=== PATIENT | male | born 1950 | race Caucasian/White ===

== ENCOUNTER 2025-08-28 11:19 | Emergency (ER) | payer MEDICARE, OTHER, SELFPAY ==
[2025-08-28] VITALS (7 sets, daily range): BP systolic 122–139; BP diastolic 58–99; PULSE 41–130; RESP 12–22; TEMP 36.7; O2SAT 90–99
--- NOTE | ~2025-08-28 | XR_ITS ---
Examination: XR chest 1V portable Clinical History: syncope Comparison: None Technique: Portable AP Findings: Heart size normal. Right basilar airspace disease. No acute bony abnormality. IMPRESSION: 1. Right basilar pneumonia. Reviewed, dictated and finalized at location R. INE PILOT IMPRESSION: 1. Right basilar pneumonia.
--- NOTE | ~2025-08-28 | CT_ITS ---
CT HEAD NON-CONTRAST CT C-SPINE CT FACE Clinical History: Trauma Comparison: None Technique: Unenhanced axial images skull base to vertex. Coronal, sagittal reformats. Axial images thoracic inlet to skull base. Sagittal and coronal reformats. CT images acquired with automatic exposure control for dose reduction DLP: 757 mGy-cm Findings: Head: Mild age-related atrophy Encephalomalacia right frontal lobe posteriorly. Sulci, ventricles: Unremarkable. No intracerebral hemorrhage. No evidence acute territorial infarct. No mass effect, midline shift, intra-/extra-axial fluid collection. Bony calvarium intact. Visualized paranasal sinuses: Clear. Mastoid air cells: Clear. C-spine: No acute fracture or listhesis. Vertebral bodies normal height and alignment. Mild degenerative changes. Disc spaces maintained. Prevertebral soft tissues within normal limits. Visualized lung apices: Clear. Visualized thyroid: Unremarkable. No enlarged cervical nodes. Face: Angulated nasal fractures. IMPRESSION: HEAD: 1. No acute intracranial findings. C-SPINE: 1. No acute fracture. FACE: 1. Nasal fractures. Reviewed, dictated and finalized at location R. MACHINE OPERATOR HELPER IMPRESSION: HEAD: 1. No acute intracranial findings. C-SPINE: 1. No acute fracture. FACE: 1. Nasal fractures.
--- NOTE | 2025-08-28 11:23 | PC.NURSE ---
1 of Atropine given IVP per EDP Dr Estrada at bedside.
[2025-08-28] MEDS: ATROPINE SULFATE 1 MG/10 ML SYRINGE (11:27)
--- NOTE | 2025-08-28 11:30 | ECG_ITS ---
Test Date: 2025-08-28 11:19:55 Measurements Intervals [place] Rate: 40 P: -21 AK: 180 QRS: -26 QRSD: 182 T: 85 QT: 617 QTc: 504 Interpretive Statements SINUS arrest with escape rhythm rbbb Electronically Signed On 08-28-2025 14:22:32 AEROSPACE ENGINEER OFFICER [employer] by Shefali Pinto M.D.
--- NOTE | 2025-08-28 11:30 | ECG_ITS ---
Test Date: 2025-08-28 11:30:39 Measurements Intervals [place] Rate: 123 P: 0 AK: 0 QRS: 117 QRSD: 183 T: 30 QT: 397 QTc: 568 Interpretive Statements ATRIAL FLUTTER/TACHYCARDIA WITH RAPID VENTRICULAR RESPONSE RIGHT AXIS DEVIATION [QRS AXIS > 100] RIGHT BUNDLE BRANCH BLOCK [120+ ms QRS DURATION, UPRIGHT V1, 40+ ms S IN I/aVL/V4/V5/V6] Electronically Signed On 08-28-2025 14:22:47 SANITATION SUPERVISOR by Shefali Pinto M.D.
--- NOTE | 2025-08-28 11:36 | ED_ITS ---
HPI - General Adult General Chief complaint: Syncope Stated complaint: syncope, arrhythmia Time Seen by Provider: 08/28/25 11:34 History of Present Illness HPI narrative: 75-year-old male present to the emergency department after her having multiple syncopal episodes at a local grocery store. Patient does have a recent history of a transcatheter aortic valve replacement at [facility] 08/02. Patient is scheduled to have a pacemaker placed by Dr. Le at [facility] on September 16. Patient had been feeling fine prior to going shopping but did have multiple syncopal episodes. Patient did fall and strike his head. Patient was having significant sinus pauses for which he was symptomatic upon arrival emergency department. Patient did have a sinus pause/asystole for at least 4 seconds. Patient was treated with atropine and this did increase his heart rate to the 130s and does appear to have a AFib/a flutter appearance. Patient states he does have a history of AFib a flutter. Patient does take amiodarone. Patient is on Lasix and Eliquis. Related Data Allergies Allergy/AdvReac Type Severity Reaction Status Date / Time No Known Allergies Allergy Verified 08/28/25 11:32 Review of Systems 2 Review of Systems: All systems reviewed & are unremarkable except as noted in HPI and below Exam 2 Narrative: APPEARANCE: Well appearing, no pain, no distress, well-nourished. HEAD: normocephalic, atraumatic. EYES: PERRLA/EOMI, conjunctivae clear. NOSE: Normal no drainage EARS:TMS clear with good light reflex. THROAT: Pharynx clear, no exudate. NECK: Supple. No adenopathy, no masses. RESPIRATORY: Airway patent, respirations nonlabored. Clear to auscultation bilaterally, no rales, rhonchi, wheezing. CARDIOVASCULAR: AFib ABDOMINAL: Soft, nontender, nondistended, normal bowel sounds MUSCULOSKELETAL: Moves all extremities. Strength/ROM intact, No edema, No calf tenderness. NEURO: Alert. Cranial nerves II through XII intact. Grossly intact SKIN: Warm, dry. Normal Color Course Vital Signs Vital signs: Vital Signs Temperature 98.0 F 08/28/25 11:17 Pulse Rate 41 L 08/28/25 11:17 Respiratory Rate 16 08/28/25 11:17 Blood Pressure 139/80 08/28/25 11:17 Pulse Oximetry 94 08/28/25 11:17 Oxygen Delivery Room Air 08/28/25 11:17 Temperature 98.0 F 08/28/25 11:17 Pulse Rate 64 08/28/25 12:37 Respiratory Rate 12 08/28/25 12:37 Blood Pressure 129/63 08/28/25 12:37 Pulse Oximetry 97 08/28/25 12:37 Oxygen Delivery Nasal Cannula 08/28/25 11:34 Oxygen Flow Rate 2 08/28/25 11:34 Medical Decision Making MDM Narrative Medical decision making narrative: 75-year-old male present to the emergency department for evaluation for syncopal episodes and heart blocks. Patient was treated with atropine and had a of his heart rate. Patient's heart rate increased to approximately 130s and appears to be an a fib/a flutter rhythm. On re-evaluation patient states he does feel improved. Patient denies any associated chest pain. Patient does have a laceration to his nose secondary to the fall. Patient does take Eliquis. I discussed the case with our tug boat captain he felt that the patient should be transferred to the outside hospital. Patient continues to be evaluated for stability. I discussed the case with transfer services at [facility] and they do have an ICU bed available. Patient was accepted by the real estate executive assistant and hospitalist Patient received atropine at 11:[address] was negative for acute intracranial abnormality. Patient was updated on the plan for transfer. Patient was transferred by flight. Patient was well-appearing at time of discharge. Critical Care Procedure Note Authorized and Performed by: Landry Estrada Total critical care time: Approximately 36 minutes Due to a high probability of clinically significant, life threatening deterioration, the patient required my highest level of preparedness to intervene emergently and I personally spent this critical care time directly and personally managing the patient. This critical care time included obtaining a history; examining the patient; pulse oximetry; ordering and review of studies; arranging urgent treatment with development of a management plan; evaluation of patient's response to treatment; frequent reassessment; and, discussions with other providers. This critical care time was performed to assess and manage the high probability of imminent, life-threatening deterioration that could result in multi-organ failure. It was exclusive of separately billable procedures and treating other patients and teaching time. Please see MDM section and the rest of the note for further information on patient assessment and treatment. Differential Diagnosis Differential Diagnosis: Sinus bradycardia, heart block, sick sinus, VFib Vital Signs Vital Signs: Vital Signs Temperature 98.0 F 08/28/25 11:17 Pulse Rate 41 L 08/28/25 11:17 Respiratory Rate 16 08/28/25 11:17 Blood Pressure 139/80 08/28/25 11:17 Pulse Oximetry 94 08/28/25 11:17 Oxygen Delivery Room Air 08/28/25 11:17 Temperature 98.0 F 08/28/25 11:17 Pulse Rate 64 08/28/25 12:37 Respiratory Rate 12 08/28/25 12:37 Blood Pressure 129/63 08/28/25 12:37 Pulse Oximetry 97 08/28/25 12:37 Oxygen Delivery Nasal Cannula 08/28/25 11:34 Oxygen Flow Rate 2 08/28/25 11:34 Lab Data Lab results reviewed: Yes I reviewed the patient's lab results. 08/28/25 11:32 08/28/25 11:32 Labs: Lab Results 08/28/25 Range/Units 11:32 WBC 6.3 (4.5-10.0) K/mm3 RBC 2.91 L (4.6-6.20) M/mm3 Hgb 9.5 L (14.0-18.0) g/dL Hct 29.9 L (42.0-52.0) % MCV 102.7 H (80-100) fl MCH 32.6 (26-34) pg MCHC 31.8 L (32-36) g/dl RDW 17.1 H (11.5-14.5) % Plt Count 363 (150-375) k/mm3 MPV 10.2 (7.4-10.4) fl Immature Gran % (Auto) 0.8 H (0-0.5) % Neut % (Auto) 34.5 L (45.5-73.1) % Lymph % (Auto) 47.9 H (18.3-44.2) % Burnett % (Auto) 9.7 H (2.6-8.5) % Eos % (Auto) 4.6 H (0-4.4) % Baso % (Auto) 2.5 H (0.2-1.2) % Lymph # (Auto) 3.02 (0.9-3.2) K/mm3 Burnett # (Auto) 0.6 (0.1-0.6) K/mm3 Eos # (Auto) 0.3 (0-0.3) K/mm3 Baso # (Auto) 0.2 H (0.0-0.1) K/mm3 Abs Immat Gran (auto) 0.05 H (0.00-0.031) K/mm3 Absolute Neuts (auto) 2.2 (1.3-6.7) K/mm3 Absolute Nucleated RBC 0.000 (0.0-0.012) K/mm3 Nucleated RBC % 0.0 (0.0-0.2) % PT 16.7 H (11.1-14.7) Seconds INR 1.3 APTT 31.0 (22.3-36.8) Seconds Sodium 139 (137-145) mmol/L Potassium 4.6 (3.4-5.0) mmol/L Chloride 101 (98-107) mmol/L Carbon Dioxide 24 (22-30) mmol/L Anion Gap 14 H (4-12) mmol/L BUN 62 H (9-20) mg/dL Creatinine 3.47 H (0.7-1.3) mg/dL Estim Creat Clear Calc 18 ml/min Estimated GFR 17 L (59 - ) Glucose 174 H (65-110) mg/dL Lactic Acid 2.0 (0.7-2.0) mmol/L Calcium 9.2 (8.4-10.2) mg/dL Total Bilirubin 0.5 (0.2-1.3) mg/dL AST 25 (17-59) U/L ALT 17 (6-50) U/L Alkaline Phosphatase 48 (38-126) U/L NT-Pro-B Natriuret Pep 4750 H (19.9-100) pg/mL Total Protein 7.4 (6.3-8.2) g/dL Albumin 4.2 (3.5-5.1) g/dL Imaging Data Radiologist's impression: Impressions Chest X-Ray 08/28/25 12:10 IMPRESSION: 1. Right basilar pneumonia. Head CT 08/28/25 12:12 IMPRESSION: HEAD: 1. No acute intracranial findings. C-SPINE: 1. No acute fracture. FACE: 1. Nasal fractures. Head/Cervical Spine/Facial Bones CT 08/28/25 12:12 IMPRESSION: HEAD: 1. No acute intracranial findings. C-SPINE: 1. No acute fracture. FACE: 1. Nasal fractures. Critical Care Time Critical Care Time Critical Care Time: Yes Total Critical Care Time: 36 Discharge Plan Discharge Clinical Impression: Sinus pause, Bradycardia Patient Disposition: Acute Care Hospital Condition: Serious Patient Language: Nepali Follow-up/Referrals: Layo,Amadou [Other]
[2025-08-28 11:37] LABS: Hematocrit 29.9 % (42.0-52.0); Hemoglobin 9.5 g/dL (14.0-18.0); Immature Granulocyte Percent A 0.8 % (0-0.5); Lymphocytes Absolute Auto 3.02 K/mm3 (0.9-3.2); Mean Corpuscular HGB Conc 31.8 g/dl (32-36); Mean Corpuscular Hemoglobin 32.6 pg (26-34); Mean Corpuscular Volume 102.7 fl (80-100); Nucleated Red Blood Cells Absolute Auto 0.000 K/mm3 (0.0-0.012); Nucleated Red Blood Cells Perc 0.0 % (0.0-0.2); Platelet Count Result 363 k/mm3 (150-375); Red Blood Count 2.91 M/mm3 (4.6-6.20); White Blood Count 6.3 K/mm3 (4.5-10.0)
[2025-08-28 11:48] LABS: INR 1.3; Prothrombin Time 16.7 Seconds (11.1-14.7)
[2025-08-28 11:49] LABS: Partial Thromboplastin Time 31.0 Seconds (22.3-36.8)
[2025-08-28 11:58] LABS: Alanine Aminotransferase 17 U/L (6-50); Albumin Level 4.2 g/dL (3.5-5.1); Alkaline Phosphatase 48 U/L (38-126); Anion Gap 14 mmol/L (4-12); Aspartate Amino Transferase 25 U/L (17-59); Bilirubin,Total 0.5 mg/dL (0.2-1.3); Blood Urea Nitrogen 62 mg/dL (9-20); Calcium 9.2 mg/dL (8.4-10.2); Carbon Dioxide 24 mmol/L (22-30); Chloride 101 mmol/L (98-107); Estimated CRCL calculation 18 ml/min; Estimated Glomerular Filt Rate 17; Glucose 174 mg/dL (65-110); Potassium 4.6 mmol/L (3.4-5.0); Sodium 139 mmol/L (137-145); Total Protein 7.4 g/dL (6.3-8.2)
[2025-08-28 12:01] LABS: NT Pro B Type Natriuretic Pept 4750 pg/mL (19.9-100)
--- OUTSIDE RECORDS SUMMARY | 2025-08-28 12:36 | XMS_ITS | Encounter Summary ---
Author Organization [facility] Address [address] [place] [address] Care Team Providers Care [employer] Assistant Name Role Phone Aryan Le MD Unavailable Tyler Nunes MD Unavailable [phone] Catarino Bella MD Unavailable [phone] Richard Post MD Unavailable [phone] Alli Melendrez MD Unavailable [phone] Tanesha Ingram Unavailable [phone] Tanesha Ingram Unavailable [phone] Bessie Estrada RN Unavailable [phone] Amadou Vasques MD Primary Care Provider [phone] Alli Cardenas DO Unavailable Encounter Details Date Type Department Care Team (Late st Contact Info) Description 10/30/2023 [employer] Message Enc [facility] Family & Internal Medicine [phone] [place] [address] Jose Antonio [facility] Provider Due for routine follow up appt Social History Tobacco Use Types Packs/Day Years Used Date Smoking Tobacco: Former Cigarettes 2 35 1 0 - 2004 Smokeless Tobacco: Never Alcohol Use Standard Drinks/Week Comments Yes 0 (1 standard drink = 0.6 oz pur e alcohol) AUDIT-C Answer Date Recorded Q1: How often do you have a drink containing alc ohol? Monthly or less 05/18/2020 Q2: How many drinks containi ng alcohol do you have on a typical day when you are drinking? 1 or 2 05/18/2020 Q3: How often do you have si x or more drinks on one occasion? Never 05/18/2020 PHQ-2 Answer Date Recorded Patient Health Questionnaire-2 Score 0 02/18/2023 Sex and Gender Information Value Date Recorded Sex Assigned at Male 05/13/2025 11:00 AM CDT Legal Sex Male 11:09 PM CDT Gender Identity Male 05/13/2025 11:00 AM CDT Sexual Orientation Not on file Occupation Industry Job Start Date Job End Date Not on file Not on file Not on file Not on file documented as of this encounter Plan of Treatment Upcoming Encounters Date Type Department Care Team (Late st Contact Info) Description 09/05/2025 8:00 AM BATCH PLANT OPERATOR Office Visit [facility] Family & Internal Medicine [address] [phone] Amadou Vasques MD [address] [place] [phone] 09/15/2025 1:30 PM BATCH PLANT OPERATOR Appointment [facility] [place] [address] Tanesha Ingram PA [address] [address] 09/15/2025 2:30 PM BATCH PLANT OPERATOR Office Visit [facility], [place] [address] [place] [address] Tanesha Ingram PA 3 [facility], [address] [address] 09/16/2025 1:00 PM BATCH PLANT OPERATOR Appointment [facility] [place] [address] Aryan Le MD Three [facility]. [place] [place] [address] 09/16/2025 1:30 PM BATCH PLANT OPERATOR Appointment [facility] Climate Change Analyst [facility] [place] [address] Aryan Le MD Three [facility]. [place] [place] [address] 10/17/2025 1:00 PM BATCH PLANT OPERATOR Office Visit [facility] [address], [place] [place] [address] Sarah Camacho MD 3 [facility], [address] [place] [address] 11/16/2025 12:20 PM BATCH PLANT OPERATOR Office Visit [facility] [address] [phone] Sarah Camacho MD 3 [facility], [address] [place] [address] 02/14/2026 9:00 AM CDT Appointment [facility] [place] [address] Jesus Aragon MD Three [facility]. [address] [place] [address] 02/24/2026 9:30 AM CDT Office Visit [facility], [place] [place] [address] Jesus Aragon MD Three [facility]. [address] [place], [place] [address] documented as of this encounter Visit Diagnoses Not on filedocumented in this encounter Additional Health Concerns Infection Onset Date Last Indicated Resolved Time Respiratory Rule Out 07/05/2025 07/05/2025 025 12:45 PM CDT COVID-19 Rule Out 07/05/2025 07/05/2025 07/05/2025 12:45 PM CDT Assessment Noted Time PHQ-9 Depression Total Score: 0 03/15/20 21 12:40 PM CDT documented as of this encounter Care Teams [employer] Assistant Relationship Specialty [place] [address] [place] [address] PCP - General FAMILY PRACTICE 07/29/25 Aryan Le MD Three [facility]. [address] [place], [place] [address] [place] [employer] Seamstress CARDIOVASCULAR DISEASE 04/06/18 Tyler Nunes MD Three [facility]. [address] [place], [place] [address] Consulting Physician INTERVENTIONAL CARDIOLOGY 06/09/25 Catarino Bella MD 3 [facility] [place] [address] [place], [place] [id number] Consulting Physician INTERVENTIONAL CARDIOLOGY 06/09/25 Richard Post MD 3 [facility] [address] [place], [place] [address] Physician CARDIOTHORACIC SURGERY 06/09/25 Alli Melendrez MD Three [facility]. [address] [place], [place] [id number] Consulting Physician CARDIOTHORACIC SURGERY 06/09/25 Tanesha Ingram PA 3 [facility], [address] [place], [place] [address] Rehabilitation Director PHYSICIAN LIME MIXER TENDER 06/09/25 06/12/25 Tanesha Ingram PA 3 [facility], [address] [place], [place] [address] Physician Epic Beacon Analyst PHYSICIAN LIME MIXER TENDER 06/12/25 Bessie Estrada, RN [address] [place] [address] Aquatic Centre Manager (Ambulatory) REGISTERED NURSE 07/06/25 08/23/25 Alli Cardenas DO [facility] [place] [address] [place] [address] INTERNAL MEDICINE 07/29/25 documented as of this encounter
--- OUTSIDE RECORDS SUMMARY | 2025-08-28 12:36 | XMS_ITS | Encounter Summary ---
Author Organization [facility] Address [address] [place] [id number] Care Team Providers Care Concrete Craftsman Name Role Phone Aryan Le MD Unavailable Tyler Nunes MD Unavailable [phone] Catarino Bella MD Unavailable [phone] Richard Post MD Unavailable [phone] Alli Melendrez MD Unavailable [phone] Tanesha Ingram Unavailable [phone] Bessie Estrada RN Unavailable [phone] Amadou Vasques MD Primary Care Provider [phone] Alli Cardenas DO Unavailable Encounter Details Date Type Department Care Team (Latest Contact Info) Description 08/15/2025 Scan HEALTH INFO SRVCS Scanned, Doc Med Group Social History Tobacco Use Types Packs/Day Years Used Date Smoking Tobacco: Former Cigarettes 2 35 1 970 - 2005 Smokeless Tobacco: Never Alcohol Use Standard Drinks/Week Comments Not Currently 0 (1 standard drink = 0.6 oz pur e alcohol) [facility] Utilities Answer Date Recorded In the past 12 months has e electric, gas, oil, or water [employer] threatened to shut off services in your home? No 07/05/2025 Humiliation, Afraid, Rape, and Kick questionnair e Answer Date Recorded Within the last year, have y ou been afraid of your partner or ex-partner? No 07/05/2025 Within the last year, have y ou been humiliated or emotionally abused in other ways by your partner or ex-partner? No Within the last year, have y ou been kicked, hit, slapped, or otherwise physically hurt by your partner or ex-partner? No 07/05/2025 Within the last year, have y ou been raped or forced to have any kind of sexual activity by your partner or ex-partner? No 07/05/2025 AUDIT-C Answer Date Recorded Q1: How often do you have a drink containing alc ohol? Monthly or less 05/18/2020 Q2: How many drinks containi ng alcohol do you have on a typical day when you are drinking? 1 or 2 05/18/2020 Q3: How often do you have si x or more drinks on one occasion? Never 05/18/2020 Overall Financial Resource Strain (CARDIA) Answe r Date Recorded How hard is it for you to pa y for the very basics like food, housing, medical care, and heating? Not hard at all 07/05/2025 PHQ-2 Answer Date Recorded Patient Health Questionnaire-2 Score 0 08/15/2025 Hunger Vital Sign Answer Date Recorded Within the past 12 months, y ou worried that your food would run out before you got the money to buy more. Never true 07/05/20 25 Within the past 12 months, t he food you bought just didn't last and you didn't have money to get more. Never true 07/05/2025 PRAPARE - Transportation Answer Date Re corded In the past 12 months, has l ack of transportation kept you from medical appointments or from getting medications? No 06/08 In the past 12 months, has l ack of transportation kept you from meetings, work, or from getting things needed for daily living? No 07/05/2025 Housing Stability Vital Sign Answer Hola e Recorded In the last 12 months, was t here a time when you were not able to pay the mortgage or rent on time? No 07/05/2025 In the past 12 months, how m any times have you moved where you were living? 0 07/05/2025 At any time in the past 12 m [facility], were you homeless or living in a nursing home (including now)? No 07/05/2025 Humiliation, Afraid, Rape, and Kick questionnair e Answer Date Recorded Within the last year, have y ou been afraid of your partner or ex-partner? No 08/02/2025 Within the last year, have y ou been humiliated or emotionally abused in other ways by your partner or ex-partner? No Within the last year, have y ou been kicked, hit, slapped, or otherwise physically hurt by your partner or ex-partner? No 08/02/2025 Within the last year, have y ou been raped or forced to have any kind of sexual activity by your partner or ex-partner? No 08/02/2025 Overall Financial Resource Strain (CARDIA) Answe r Date Recorded How hard is it for you to pa y for the very basics like food, housing, medical care, and heating? Not hard at all 08/02/2025 Hunger Vital Sign Answer Date Recorded Within the past 12 months, y ou worried that your food would run out before you got the money to buy more. Never true 08/02/20 25 Within the past 12 months, t he food you bought just didn't last and you didn't have money to get more. Never true 08/02/2025 PRAPARE - Transportation Answer Date Re corded In the past 12 months, has l ack of transportation kept you from medical appointments or from getting medications? No 07/07 In the past 12 months, has l ack of transportation kept you from meetings, work, or from getting things needed for daily living? No 08/02/2025 Housing Stability Vital Sign Answer Hola e Recorded In the last 12 months, was t here a time when you were not able to pay the mortgage or rent on time? No 08/02/2025 In the past 12 months, how m any times have you moved where you were living? 2 08/02/2025 At any time in the past 12 m [facility], were you homeless or living in a nursing home (including now)? No 08/02/2025 [facility] Utilities Answer Date Recorded In the past 12 months has th e electric, gas, oil, or water company threatened to shut off services in your home? No 08/02/2025 Sex and Gender Information Value Date Recorded Sex Assigned at Male 05/13/2025 11:00 AM CDT Legal Sex Male 11:09 PM CDT Gender Identity Male 05/13/2025 11:00 AM CDT Sexual Orientation Not on file Occupation Industry Job Start Date Job End Date Not on file Not on file Not on file Not on file documented as of this encounter Functional Status * Are you deaf or do you have serious difficulty hearing Answer Date of Assessment Author Status No 08/02/2025 2:14 PM CDT Felisha Sanchez RN Active * Are you blind or do you have serious difficulty seeing, even when wearing glasses? Answer Date of Assessment Author Status No 08/02/2025 2:14 PM CDT Felisha Sanchez RN Active * Do you have serious difficulty walking or climbing stairs? Answer Date of Assessment Author Status Yes 08/02/2025 2:14 PM CDT Felisha Sanchez RN Active * Do you have difficulty dressing or bathing? Answer Date of Assessment Author Status Yes 08/02/2025 2:14 PM CDT Felisha Sanchez RN Active * Because of a physical, mental, or emotional condition, do you have difficulty doing errands alone such as visiting a doctor's office or shopping? Answer Date of Assessment Author Status Yes 08/02/2025 2:14 PM CDT Felisha Sanchez RN Active * Over the past 2 weeks, how often have you been bothered by any of the following problems? Question Answer Date of Assessment Author Status Little interest or pleasure in doing things Not at all 08/15/2025 1:27 PM Park Beebe LPN Active Feeling down, depressed, or hopeless Not at all 08/15/2025 1:27 PM Park Beebe LPN Activ e Patient Health Questionnaire-2 Score 0 08/15/2025 1:27 PM Park Beebe LPN Active documented as of this encounter Mental Status * Because of a physical, mental, or emotional condition, do you have serious difficulty concentrating, remembering, or making decisions? Answer Entry Date Author Status No 08/02/2025 2:14 PM Felisha Tierney RN Active documented in this encounter Plan of Treatment Upcoming Encounters Date Type Department Care Team (Late st Contact Info) Description 09/05/2025 8:00 AM CUSTOM SEAMSTRESS Office Visit [facility] Family & Internal Medicine [facility] [address] [place] [address] [place] [address] [place], [place] [id number] 09/15/2025 1:30 PM CUSTOM SEAMSTRESS Appointment [facility] [place] [address] Tanesha Ingram, PA [address], [address] [place] [address] 09/15/2025 2:30 PM CUSTOM SEAMSTRESS Office Visit [facility], [address] [place] [address] Tanesha Ingram, PA [address] [facility], [address] [place] [address] 09/16/2025 1:00 PM CUSTOM SEAMSTRESS Appointment [facility] Curbing Stonecutter [facility] [place] [address] Aryan Le MD [address] [facility] [address] [place] [address] 09/16/2025 1:30 PM CUSTOM SEAMSTRESS Appointment [facility] Curbing Stonecutter [facility] [place] [address] Aryan Le MD [address] [facility] [address] [place] [address] 10/17/2025 1:00 PM CUSTOM SEAMSTRESS Office Visit [facility] Multispecialty Care - [facility] [address] [facility], [address] [place] [address] Sarah Camacho MD [address] [facility], [address] [place] [address] 11/16/2025 12:20 PM CUSTOM SEAMSTRESS Office Visit [facility] [address] [phone] Sarah Camacho MD 3 [facility], [facility] [address] [place] [address] 02/14/2026 9:00 AM CDT Appointment [facility] [place] [address] Jesus Aragon MD Three [facility] [address] [place] [address] 02/24/2026 9:30 AM CDT Office Visit [facility] [address] [facility], [address] [place] [address] Jesus Aragon MD Three [facility]. [address] [place] [address] documented as of this encounter Visit Diagnoses Not on filedocumented in this encounter Additional Health Concerns Assessment Noted Time PHQ-9 Depression Total Score: 0 03/15/20 21 12:40 PM CDT documented as of this encounter Care Teams Concrete Craftsman Relationship Specialty Start [place] [address] [place] [address] PCP - General FAMILY PRACTICE 07/29/25 Aryan Le MD [facility] [address] [place] [address] [facility] Maintainer Plant CARDIOVASCULAR DISEASE 04/06/18 Tyler Nunes MD [address] [place] [address] Consulting Physician INTERVENTIONAL CARDIOLOGY 06/09/25 Catarino Bella MD 3 [facility] [address] [place], [place] [address] Consulting Physician INTERVENTIONAL CARDIOLOGY 06/09/25 Richard Post MD [address] [facility] [address] [place], [place] [address] Physician CARDIOTHORACIC SURGERY 06/09/25 Alli Melendrez MD [facility] [address] [place], [place] [address] Consulting Physician CARDIOTHORACIC SURGERY 06/09/25 Tanesha Ingram PA 3 [facility], [address] [place], [place] [address] Physician Smooth Stucco Resurfacer PHYSICIAN ZOO VETERINARIAN 06/12/25 Bessie Estrada, RN [address] [place], [place] [address] Tripe Washer (Ambulatory) REGISTERED NURSE 07/06/25 08/23/25 Alli Cardenas DO [facility] [address] [place] [id number] INTERNAL MEDICINE 07/29/25 documented as of this encounter
--- OUTSIDE RECORDS SUMMARY | 2025-08-28 12:36 | XMS_ITS | Clinical Summary ---
Author Organization [facility] Address [address] [place] [address] Care Team Providers Care Hotel Director Name Role Phone Amadou Vasques MD Primary Care Provider [phone] Source Comments [facility],non-owned Affiliates and Associated Physician Practices is amultiple site organization consisting of ambulatory clinics and hospital sitesin [place], [place], [place] and [place]. This disclosure is being madepursuant to the Care Everywhere program and may not contain all information available regarding this patient. Last updated 18.[employer] [facility] Allergies No known active allergies Medications * Be aware that medications may not be up to date on this document. Alwaysverify current medications with the patient. blood glucose (ONETOUCH ULTRA TEST STRIPS) test strip 7 Active [place]-3-6-9 CAPS Take 1,600 mg by mouth BID. 7 Active glimepiride (AMARYL) 4 MG tablet Take 4 mg by mouth Every Morning. 7 Active metFORMIN (GLUCOPHAGE) 1000 MG tablet Take 1,000 mg by mouth 2 times daily with morning and evening meal. 7 Active clopidogrel (PLAVIX) 75 MG tablet Take 75 mg by mouth DAILY. 7 Active fenofibrate (TRICOR) 145 MG tablet Take 145 mg by mouth DAILY. 7 Active hydroCHLOROthi azide (HYDRODIURIL) 25 MG tablet Take 25 mg by mouth once daily Active lisinopril (PRINIVIL; ZESTRIL) 20 MG tablet Take 20 mg by mouth once daily Active cilostazol (PLETAL) 100 MG tablet Take 100 mg by mouth 2 times daily Active Lutein 6 MG Take by mouth once daily Active rosuvastatin (CRESTOR) 10 MG tablet Take 10 mg by mouth at bedtime Active AMLODIPINE BESYLATE PO Take 10 mg by mouth once daily Active Insulin Degludec (TRESIBA) 100 UNIT/ML SOLN Inject 50 Units subcutaneously once daily Active pantoprazole EC (PROTONIX) 40 MG tablet Take 1 tablet by mouth once daily 30 tablet 5 9 Active Active Problems Problem Noted Date Diagnosed Date Weakness 12/08/2018 Cerebral infarction due to u nspecified occlusion or stenosis of right middle cerebral artery 03/07/2017 Occlusion and stenosis of right carotid artery 0 03/07/2017 Gastrointestinal hemorrhage with melena Normocytic anemia due to blood loss Elevated serum creatinine Elevated troponin Coronary artery disease invo lving [place] heart without angina pectoris Essential hypertension PVD (peripheral vascular disease) Hyperlipidemia History of hemorrhagic stroke with residual shawnee paresis Family History Medical History Relation Name Comments CAD (Coronary Artery Disease) Brother CAD (Coronary Artery Disease) Father Macular Degeneration Mother Relation Name Status Comments Brother Father Mother Social History Tobacco Use Types Packs/Day Years Used Date Smoking Tobacco: Former Cigarettes 2 30 0 10/06/1978 - 10/06/2008 Smokeless Tobacco: Never Alcohol Use Standard Drinks/Week Comments Yes 1 (1 standard drink = 0.6 oz pur e alcohol) few times/year Sex and Gender Information Value Date Recorded Sex Assigned at Not on file Legal Sex Male 5:28 PM INVASIVE PHYSICIAN Gender Identity Not on file Sexual Orientation Not on file Last Filed Vital Signs Vital Sign Reading Time Taken Comments Blood Pressure 150/76 02/25/2019 1:55 PM CDT Pulse 95 02/25/2019 1:55 PM CDT Temperature 37 C (98.6 F) 02/25/2019 1:55 PM CDT Respiratory Rate 18 02/25/2019 1:55 PM CDT Oxygen Saturation 98% 02/25/2019 1:55 PM CDT Inhaled Oxygen Concentration 21% 12/09/2018 8 :54 PM INVASIVE PHYSICIAN Weight 99.6 kg (219 lb 9.6 oz) 02/25/2019 1:55 P M CDT Height 177.8 cm (5' 10) 02/25/2019 1:55 PM CDT Body Mass Index 31.51 02/25/2019 1:55 PM CDT Plan of Treatment Health Maintenance Due Date Last Done Comments COLOGUARD (AGES 45-75) - COLON CA SCREENING 1952 COLON MONITORING 1952 COLONOSCOPY - COLON CA SCREENING 1952 CT COLONOGRAPHY - COLON CA SCREENING 1952 Colorectal Cancer Screening 1952 FIT - COLON CA SCREENING 1952 FLEX SIG - COLON CA SCREENING 1952 HEPATITIS C SCREENING 08/09/1970 DTAP/TDAP/TD VACCINES (1 - Tdap) 1971 LUNG CANCER SCREENING 2002 PNEUMOCOCCAL VACCINE 50+ (1 of 1 - PCV) 2002 ZOSTER VACCINE (1 of 2) 2002 AAA SCREENING 2017 SCREENING FOR DIABETES 12/10/2021 9, 12/10/2018, 12/10/2018, Additional history exists DEPRESSION SCREENING 10/06/2024 COVID-19 VACCINE (2024- season) 2025 INFLUENZA VACCINE (#1) 2025 Respiratory Syncytial Virus (RSV) Vaccine Pt: or over 60 yrs (1 - 1-dose 75+ series) 2027 HEPATITIS B VACCINE Aged Out No longe r eligible based on patient's age to complete this topic HIB VACCINE Aged Out No longer eligi ble based on patient's age to complete this topic HPV VACCINE Aged Out No longer eligi ble based on patient's age to complete this topic MENINGOCOCCAL (Group B) VACCINE SHARED DECISION-MAKING Aged Out No longer eligible based on patient's age to complete this topic MENINGOCOCCAL GROUPS A/C/Y/W VACCINE Aged Out No longer eligible based on patient's age to complete this topic Goals Goal Patient Goal Type Associated Problems Recent Progress Patient-Stated? Author Medication Management General On track( 019 2:09 PM CDT) Lili Santos, RN Note: Expected end date: ongoing Interventions: Take all medications as prescribed Let your doctor know right away about any changes in your medications Make sure to request a refill of your medication at least one week prior to your last dose Procedures Procedure Name Priority Date/Time Associated Diagnosis Comments BASIC METABOLIC PANEL (CALCIUM TOTAL) Routine 12/10/2018 4:28 AM INVASIVE PHYSICIAN from Last 3 Months or Most Recently Relevant to Health Maintenance Results * (ABNORMAL) BASIC METABOLIC PANEL (CALCIUM TOTAL) (12/10/2018 4:28 AM INVASIVE PHYSICIAN) BUN 33(H) 7 - 26 mg/dL 12/10/2018 5:[address] [facility] Creatinine 1.5(H) 0.6 - 1.2 mg/dL 12/10/2018 5:[address] [facility] Sodium 141 136 - 145 mmol/L 12/10/2018 5:[address] [facility] Potassium 4.5 3.5 - 4.5 mmol/L 12/10/2018 5:[address] [facility] Chloride 109(H) 98 - 107 mmol/L 12/10/2018 5:[address] [facility] CO2 23 22 - 29 mmol/L 12/10/2018 5:[address] [facility] Glucose 109 70 - 115 mg/dL 12/10/2018 5:[address] [facility] Calcium 9.2 8.4 - 10.2 mg/dL 12/10/2018 5:[address] [facility] Anion Gap 14 8 - 18 12/10/2018 5:[address] [facility] BUN/Creatinine Ratio 22 7 - 23 12/10/2018 5:[address] [facility] Osmolality Calculated 300 270 - 300 mOsm/kg 12/10/2018 5:[address] [facility] eGFR 47(L) >60 mL/min/1.7 3 m2 12/10/2018 5:[address] [facility] Blood BLOOD SPECIMEN / Unknown Lab Venipuncture / Unknown 12/10/2018 4:28 AM INVASIVE PHYSICIAN 12/10/2018 4:44 AM [facility] Alessandra LEAHY [facility] - CHEMISTRY ORDERABLES Fi nal Result [address] [phone] from Last 3 Months or Most Recently Relevant to Health Maintenance Insurance [employer] MEDICARE MEDICARE [employer] Advance Directives * Full Code (Latest Code Status on File) Date Activated Date Inactivated Comments 12/08/2018 2:24 AM 12/10/2018 4:13 PM Care Teams Hotel Director Relationship Specialty Start Date End Date Amadou Vasques MD PCP - General 01/17/17
--- OUTSIDE RECORDS SUMMARY | 2025-08-28 12:36 | XMS_ITS | Encounter Summary ---
Author Organization [facility] Address [address] [place] [address] Care Team Providers Care Box Sealing Machine Feeder Name Role Phone Aryan Le MD Unavailable Tyler Nunes MD Unavailable [phone] Catarino Bella MD Unavailable [phone] Richard Post MD Unavailable [phone] Alli Melendrez MD Unavailable [phone] Tanesha Ingram Unavailable [phone] Tanesha Ingram Unavailable [phone] Bessie Estrada RN Unavailable [phone] Nan Fountain MD Primary Care Provider [phone] Alli Cardenas DO Unavailable Encounter Details Date Type Department Care Team (Late st Contact Info) Description 01/16/2023 Hospital Orders Only [facility] [address] [place] [address] Carley Alvarez, ANP-[facility] [address] [place] [address] Social History Tobacco Use Types Packs/Day Years [...] occasion? Never 05/18/2020 PHQ-2 Answer Date Recorded PHQ-2 Score - If the patient scores above 3, please move on to questions 3-9 0 03/29/2022 Sex and Gender Information Value Date Recorded Sex Assigned at Male 05/13/2025 11:00 AM CDT Legal Sex Male 11:09 PM CDT Gender Identity Male 05/13/2025 11:00 AM CDT Sexual Orientation Not on file Occupation Industry Job Start Date Job End Date Not on file Not on file Not on file Not on file COVID-19 Exposure Response Date Recorded In the last 10 days, have yo u been in contact with someone who was confirmed or suspected to have Coronavirus/COVID-19? No / Unsure 01/17/2023 2:11 PM CDT documented as of this encounter Functional Status * Calculated C-SSRS Risk Score (Lifetime/Recent) Answer Date of Assessment Author Status No Risk Indicated 01/17/2023 9:17 AM CDT Vonnie Oswald RN Active * [place] Suicide Severity Rating Scale (Screener/Recent Self-Report) Question Answer Date of Assessment Author Status 1. Wish to be (Past 1 Month) No 01/17/2023 9:17 AM ANAT Vonnie Oswald RN Active 2. Non-Specific Active Suicidal Thoughts (Past 1 Month) No 01/17/2023 9:17 AM ANAT Vonnie Oswald RN Active 6. Suicidal Behavior (Lifetime) No 01/17/2023 9:17 AM CDT Vonnie Oswald RN Active documented as of this encounter H&P Notes * CHRISTAL Gutierrez - 01/16/2023 5:08 PM CDTSummary: Updated H & P CHIEF COMPLAINT Patient presents for coronary angiogram today. HISTORY OF PRESENT ILLNESS Jesse Demarco is a 72-year-old male who presents today for cardiac evaluation. He saw Dr. Aragon last week for PAD follow up and was noted to be in atrial tachycardia in the 120's. He was also sick with bronchitis. He was not symptomatic from the arrhythmia. Beta mer was increased and Amlodipine decreased. He called back later when he realized he actually hadn't been taking Amlodipine in quite some time. He is back in sinus rhythm with a normal rate today and his bronchitis has improved but he is still coughing. No symptoms of dizziness, angina, BRISCOE, edema. ASSESSMENT/PLAN Atrial Tachycardia He was in atrial tachycardia with a rate of 116 bpm on ECG last week when he saw Dr. Aragon. He also had bronchitis at that time. He was not symptomatic from the arrhythmia. Beta mer was increased. Today he is in sinus rhythm with a normal rate by physical exam. Dr. Aragon ordered a holter monitor last week and he is waiting to get that. Coronary artery disease History of PCI of the RCA in 2018. Medical therapy with Clopidogrel, beta mer. No reported symptoms of angina. ?? PAD (peripheral artery disease) Has claudication with variable distances. Sees Dr. Aragon for this. Medical therapy with Cilostazol. ?? Nonrheumatic aortic (valve) stenosis Moderate aortic stenosis by echo in January 2022. Asymptomatic. Essential hypertension BP is stable on the current regimen. Moderate right renal artery stenosis on CTA in 2016. ?? Dyslipidemia High intensity Rosuvastatin, also on Fenofibrate No reported side effects. No recent lipid panel for my review. 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 Plavix for secondary prevention. Type II Diabetes Mellitus Medical therapy with Glimepiride, Januvia, Metformin, Tresiba. Component 09/21/2021 12:00 AM HGB A1C 8.4 RECOMMENDATIONS Patient with nonsustained VT at his rehab program. Stress test performed showing a moderate size irreversible defect involving the inferior wall with ejection fraction of 50%. He was advised a coronary angiogram for further evaluation. [facility]: 1. Clinically negative. 2. Electrocardiographically negative stress test for ischemia. 3. Scintigraphic images to follow. Perfusion conclusion: 1. Fair study quality. Resting motion correction was applied to images. Bowel attenuation is noted. Prone imaging was performed. 2. Mildly abnormal myocardial perfusion SPECT imaging. There is a moderate sized irreversible perfusion abnormality involving the inferior wall. 3. Abnormal wall motion with an ejection fraction of 50%. 4. In this patient with known coronary artery disease, the likelihood of ischemia due to residual hemodynamically significant coronary artery disease, based on these findings, is low. Echocardiogram 01/17/2022: The left ventricular size is normal. The left ventricular systolic function is lower limits of normal. Estimated left ventricular ejection fraction is 50-55%. Left ventricular diastolic function is abnormal (grade 2 - pseudonormal pattern). The right ventricular size is mildly enlarged. Right ventricular systolic function is normal. Moderate aortic valve stenosis. Arterial duplex with JUAN's 04/22/2021: Right: Mild, <50% stenosis at the common femoral. 76-99% distal superficial femoral artery. Popliteal monophasic with low velocity. Anterior and posterior tibial arteries are patent with monophasic flow. Left: Mild, <50% stenosis at the common femoral. Moderate, 50-75% stenosis distal superficial femoral. Short segment occlusion distal popliteal artery. Anterior and posterior tibial arteries are patent with monophasic flow. JUAN right leg 0.54, with toe index 0.308 , in the range of moderate ischemia, claudication. Waveforms suggestive of femoral-popliteal disease. JUAN left leg 0.62, with toe index 0.277 , in the range of moderate ischemia, claudication. Waveforms suggestive of femoral-popliteal disease. Echocardiogram 06/16/2019: The left ventricular size is normal. The left ventricular systolic function is normal. Estimated left ventricular ejection fraction is 60-65%. Mild concentric left ventricular hypertrophy. Left ventricular diastolic function is abnormal (grade 1 - impaired relaxation). The right ventricular size is mild to moderately enlarged. The left atrial volume is normal ( less than 34 ml/M2). Aortic root is mildly dilated. Inferior vena cava shows >50% collapse with respiration consistent with normal right atrial pressure. Moderate aortic valve stenosis-mean gradient 23 mm Hg, MEGHNA 1.1 cm2 Trace mitral regurgitation. No evidence of pulmonic regurgitation. Cardiac Catheterization 05/08/2018: 1. Normal left ventricular function. 2. Mild aortic stenosis. 3. Proximal right coronary artery - 80%. 4. Obtuse marginal - 90%. 5. Mid left anterior descending artery - 40%. Summary Findings of Intervention Successful percutaneous transluminal coronary intervention of proximal right coronary artery lesionusing a 3.5 mm x 18 mm Resolute Mickey stent. Holter monitor 01/28/2017: 1. Sinus rhythm 2. 4 episodes of second degree atrioventricular block. 3. Rare premature ventricular beats. 4. Occasional supraventricular beats. 5. SVT-one 5-beat run of SVT at a rate of 146 beats per minute 6. Asymptomatic. CTA of abdomen 01/16/2017: Moderate stenosis due to plaque at the origin of the right renal artery. Patent left renal artery CHOLESTEROL Date Value Ref Range Status 01/07/2023 152 <200.0 MG/DL Final TRIGLYCERIDES Date Value Ref Range Status 01/07/2023 333 (H) <150 MG/DL Final HDL Date Value Ref Range Status 01/07/2023 26 (L) >40.0 MG/DL Final LDL (CALCULATED) Date Value Ref Range Status 01/07/2023 59 <100 MG/DL Final SODIUM Date Value Ref Range Status 01/07/2023 133 (L) 136 - 145 MMOL/L Final POTASSIUM Date Value Ref Range Status 01/07/2023 5.5 (H) 3.5 - 5.1 MMOL/L Final CHLORIDE S/P/B Date Value Ref Range Status 01/07/2023 102 100 - 108 MMOL/L Final CO2 Date Value Ref Range Status 01/07/2023 30.6 21 - 32 MMOL/L Final BUN Date Value Ref Range Status 01/07/2023 34 (H) 7 - 18 MG/DL Final CREATININE S/P/B Date Value Ref Range Status 01/07/2023 1.97 (H) 0.7 - 1.3 MG/DL Final CALCIUM Date Value Ref Range Status 01/07/2023 9.2 8.5 - 10.1 MG/DL Final GLUCOSE Date Value Ref Range Status 01/07/2023 169 (H) 70 - 99 MG/DL Final ANION GAP Date Value Ref Range Status 01/07/2023 0.4 (L) 5 - 15 MMOL/L Final TOTAL PROTEIN S/P/B Date Value Ref Range Status 04/20/2022 7.4 6.4 - 8.2 G/DL Final ALBUMIN S/P/B Date Value Ref Range Status 04/20/2022 3.5 3.4 - 5.0 G/DL Final ALT Date Value Ref Range Status 04/20/2022 22 16 - 60 U/L Final WBC Date Value Ref Range Status 01/07/2023 4.37 (L) 4.4 - 11.0 x10'3/uL Final HGB Date Value Ref Range Status 01/07/2023 11.5 (L) 14.0 - 17.5 G/DL Final PLT Date Value Ref Range Status 01/07/2023 309 151 - 353 x10'3/uL Final HGB A1C Date Value Ref Range Status 11/18/2022 9.8 % Final TSH Date Value Ref Range Status 07/07/2014 1.46 0.40 - 4.50 mIU/L Final Comment: Result Comment: Test Performed at: [email or web address] [address] [place] [address] SNEHAL JUARESDO,MPH Medications: Current Outpatient Medications: ??? Accu-Chek FastClix Lancets Misc, Use to check blood sugar twice per day, Disp: 200 each, Rfl: 2 ??? amLODIPine (NORVASC) 2.5 MG tablet, Take 1 tablet (2.5 mg total) by mouth nightly at bedtime. Combine with 5 mg tablet to make 7.5 mg, Disp: 90 tablet, Rfl: 2 ??? amLODIPine (NORVASC) 5 MG tablet, Take 1 tablet (5 mg total) by mouth nightly at bedtime. Take by mouth with a 2.5 mg tablet to make a total of 7.5 mg, Disp: 90 tablet, Rfl: 1 ??? BD PEN NEEDLE MICRO U/F 32G X 6 MM Misc, USE WITH TRESIBA INJECTION DAILY, Disp: 100 each, Rfl:1 ??? Blood Glucose Monitoring Suppl (ACCU-CHEK DELMA PLUS) w/Device Kit, Use to check blood sugar twice per day, Disp: 1 kit, Rfl: 0 ??? cholecalciferol 125 MCG (5000 UT) Tab, Take 5,000 Units by mouth daily., Disp: , Rfl: ??? cilostazol (PLETAL) 100 MG tablet, TAKE 1 TABLET BY MOUTH TWICE A DAY, Disp: 180 tablet, Rfl: 0 ??? clopidogrel (PLAVIX) 75 MG tablet, TAKE 1 TABLET BY MOUTH EVERY DAY, Disp: 90 tablet, Rfl: 1 ??? fenofibrate (TRICOR) 145 MG tablet, TAKE 1 TABLET BY MOUTH EVERY DAY, Disp: 90 tablet, Rfl: 0 ??? FERROUS SULFATE, 65 MG ELEMENTAL, 325 (65 FE) MG tablet, TAKE 1 TABLET BY MOUTH EVERY DAY WITH BREAKFAST, Disp: 90 tablet, Rfl: 0 ??? glimepiride (AMARYL) 4 MG tablet, TAKE 2 TABLETS BY MOUTH EVERY MORNING BEFORE BREAKFAST., Disp: 180 tablet, Rfl: 0 ??? Glucose Blood (BLOOD GLUCOSE TEST STRIPS) Strip, Use to check blood sugar twice a day, Disp: 200 strip, Rfl: 1 ??? hydroCHLOROthiazide (HYDRODIURIL) 25 MG tablet, TAKE 1 TABLET BY MOUTH EVERY DAY IN THE MORNING, Disp: 90 tablet, Rfl: 1 ??? JANUVIA 50 MG tablet, TAKE 1/2 TABLET BY MOUTH EVERY DAY, Disp: 45 tablet, Rfl: 2 ??? lisinopril (PRINIVIL) 20 MG tablet, TAKE 1 AND 1/2 TABLETS BY MOUTH DAILY, Disp: 135 tablet, Rfl: 0 ??? magnesium oxide (MAG-OX) 400 MG tablet, Take 1 tablet (400 mg total) by mouth daily., Disp: 30 tablet, Rfl: 3 ??? metFORMIN (GLUCOPHAGE) 1000 MG tablet, TAKE 1 TABLET BY MOUTH TWICE A DAY, Disp: 180 tablet, Rfl: 1 ??? metoprolol succinate ER (TOPROL-XL) 50 MG 24 hr tablet, TAKE 1/2 TABLET BY MOUTH TWICE A DAY, Disp: 90 tablet, Rfl: 1 ??? pantoprazole EC (PROTONIX) 40 MG tablet, TAKE 1 TABLET BY MOUTH EVERY DAY, Disp: 90 tablet, Rfl: 0 ??? rosuvastatin (CRESTOR) 20 MG tablet, TAKE 1 TABLET BY MOUTH EVERY DAY, Disp: 90 tablet, Rfl: 0 ??? silver sulfADIAZINE 1 % cream, Apply topically daily., Disp: 50 g, Rfl: 1 ??? TRESIBA FLEXTOUCH 100 UNIT/ML Solution Pen-injector injection, INJECT 50 UNITS SUBCUTANEOUSLY DAILY, Disp: 45 pen, Rfl: 0 Allergies Allergen Reactions ??? Chlorthalidone Diarrhea Past Medical History: Diagnosis Date ??? Bleeding ulcer 01/2019 ??? CAD (coronary artery disease) ??? Cerebral infarction due to unspecified occlusion or stenosis of right middle cerebral artery (CMS/HCC) 03/07/2017 Right middle cerebral artery territory infarct, occluded right internal carotid artery ??? COPD (chronic obstructive pulmonary disease) ([facility]) ??? Diabetes mellitus ([facility]) 2005 ??? Dyslipidemia ??? Essential hypertension ??? Nonrheumatic aortic (valve) stenosis moderate ??? Occlusion and stenosis of right carotid artery 03/07/2017 ??? AIMEE (obstructive sleep apnea) ??? PAD (peripheral artery disease) ([facility]) ??? Renal artery stenosis ([facility]) moderate right renal artery stenosis ??? Type 2 diabetes mellitus ([facility]) 07/21/2013 Past Surgical History: Procedure Laterality Date ??? ABDOMINAL SURGERY 2017 perforated ulcer repair ??? CARDIAC STENTS 05/08/2018 PCI of RCA ??? TONSILLECTOMY Social History Tobacco Use ??? Smoking status: Former Packs/day: 2.00 Years: 30.00 Pack years: 60.00 Types: Cigarettes Start date: 1969 Quit date: 2005 Years since quittin.2 ??? Smokeless tobacco: Never Vaping Use ??? Vaping Use: Never used Substance Use Topics ??? Alcohol use: Yes ??? Drug use: No Family History Problem Relation Name Age of Onset ??? Macular Degeneration Mother ??? Coronary artery disease Father ??? CABG Father 72 ??? Stent Brother Family Status Relation Name Status ??? Mother ??? Father at age 90 ??? Brother Alive, age 65y Review of Systems Constitutional: Negative for new or significant fatigue. HENT: Negative for headaches. Eyes: Negative for blurred vision. Respiratory: Positive for cough. Negative for new or significant shortness of breath. Cardiovascular: See HPI. Positive for claudication.Negative for chest pain, palpitations and leg swelling. Gastrointestinal: Negative for nausea and vomiting. Genitourinary: Negative for dysuria and hematuria. Musculoskeletal: Negative for myalgias and new or worsening joint stiffness/pain. Skin: Negative for rash. Neurological: Negative for dizziness and LOC. Endo/Heme/Allergies: Negative for new or significant bruising/bleeding. Psychiatric/Behavioral: Negative for new or significant memory loss. There were no vitals filed for this visit. There is no height or weight on file to calculate BMI. Cardiac Exam Rate/Rhythm: Regular rhythm. PMI: PMI is not displaced. Pulses: Carotid pulses are 2+ on the right side and 2+ on the left side. Heart Sounds: No gallop present. Murmurs: Murmur present Harsh systolic murmur is present with a grade of 2/6 at the upper right sternal border radiating tothe neck. Negative for edema. Comments: Weak distal pulses Trace ankle edema Physical Exam Constitutional: No distress. Healthy Appearance. HENT: Eyes: Conjunctivae normal. Neck: Normal range of motion. No JVD. Abdomen: Abdomen soft. Bowel sounds normal. No distension. No tenderness. No abdominal bruit present. Pulmonary: Effort normal. Breath sounds normal. No chest wall tenderness. Skin: Dry. Warm. No rash. No pallor. No jaundice. No cyanosis. No clubbing. No xanthoma. Musculoskeletal: No tenderness. No kyphosis. Normal ROM. Neurological: Alert. Oriented x 3. Appropriate mood and affect. Comments: Diagnoses/Impression: No diagnosis found. Referring Provider: No ref. provider found PCP: NAN FOUNTAIN MD Cosigned by Aryan Le MD at 01/18/2023 7:39 AM CDT documented in this encounter Plan of Treatment Upcoming Encounters Date Type Department Care Team (Late st Contact Info) Description 09/05/2025 8:00 AM CLINICAL SUPPORT TECH Office Visit [facility] [id number] [place] [phone] Nan Fountain MD [address] [place] [address] 09/15/2025 1:30 PM CLINICAL SUPPORT TECH Appointment [facility] [place] [address] Tanesha Ingram PA [address] [facility], [address] [place] [address] 09/15/2025 2:30 PM CLINICAL SUPPORT TECH Office Visit [facility] [address] [facility] [address], [address] [place] [address] Tanesha Ingram PA [address] [facility], [address] [place] [address] 09/16/2025 1:00 PM CLINICAL SUPPORT TECH Appointment [facility] [employer] [address] [facility] [place] [address] Aryan Le MD [address] [place] [address] 09/16/2025 1:30 PM CLINICAL SUPPORT TECH Appointment [facility] [employer] [address] [facility] [place] [address] Aryan Le MD [address] [place] [address] 10/17/2025 1:00 PM CLINICAL SUPPORT TECH Office Visit [facility] [address] [facility], [address] [place] [address] Sarah Camacho MD [address] [facility] [address] [place] [address] 11/16/2025 12:20 PM CLINICAL SUPPORT TECH Office Visit [facility] [address] [address] Sarah Camacho MD [address] [facility] [place] [address] 02/14/2026 9:00 AM CDT Appointment [facility] [address] [facility] [place] [address] Jesus Aragon MD [facility] [address] [place], [place] [address] 02/24/2026 9:30 AM CDT Office Visit [facility] [address] [facility] [place], [place] [address] Jesus Aragon MD Three [facility]. [facility] [address] [place], [place] [address] documented as of this encounter Visit Diagnoses Not on filedocumented in this encounter Additional Health Concerns Infection Onset Date Last Indicated Resolved Time Respiratory Rule Out 07/05/2025 07/05/2025 025 12:45 PM CDT COVID-19 Rule Out 07/05/2025 07/05/2025 07/05/2025 12:45 PM CDT Assessment Noted Time PHQ-9 Depression Total Score: 0 03/15/20 21 12:40 PM CDT documented as of this encounter Care Teams Box Sealing Machine Feeder Relationship Specialty [place] [address] [place] [address] PCP - General FAMILY PRACTICE 07/29/25 Aryan Le MD Three [facility]. [facility] [address] [place], [place] [address] [employer] CARDIOVASCULAR DISEASE 04/06/18 Tyler Nunes MD Three [facility]. [facility] [address] [place], [place] [id number] Consulting Physician INTERVENTIONAL CARDIOLOGY 06/09/25 Catarino Bella MD 3 [facility] [address] [place] [address] Consulting Physician INTERVENTIONAL CARDIOLOGY 06/09/25 Richard Post MD 3 [facility] [address] [place] [address] Physician CARDIOTHORACIC SURGERY 06/09/25 Alli Melendrez MD Three [facility]. [address] [place] [address] Consulting Physician CARDIOTHORACIC SURGERY 06/09/25 Tanesha Ingram PA 3 [facility], [address] [place] [address] Ship Purser PHYSICIAN NET WPF DEVELOPER 06/09/25 06/12/25 Tanesha Ingram PA 3 [facility], [address] [place], [place] [address] Physician Electrical Tryout Person PHYSICIAN NET WPF DEVELOPER 06/12/25 Bessie Estrada, RN [address] [place] [address] Solar Electric Practitioner (Ambulatory) REGISTERED NURSE 07/06/25 08/23/25 Alli Cardenas DO [facility] [address] [place] [id number] INTERNAL MEDICINE 07/29/25 documented as of this encounter
--- OUTSIDE RECORDS SUMMARY | 2025-08-28 12:36 | XMS_ITS | Clinical Summary ---
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 Name Role Phone Sotero Rodríguez MD Unavailable Tia Johnson MD Unavailable [phone] Catarino Bella MD Unavailable [phone] Richard Post MD Unavailable [phone] Alli Melendrez MD Unavailable [phone] Tanesha Ingram Unavailable [phone] Nan Fountain MD Primary Care Provider [phone] Alli Cardenas DO Unavailable Allergies Active Allergy Reactions Criticality Noted Date Comments Chlorthalidone Diarrhea Low 04/13/2019 Medications Blood Glucose Monitoring Suppl (ACCU-CHEK DELMA PLUS) w/Device KitIndications: Diabetes mellitus ([facility]) Use to check blood sugar twice per day 1 kit 022 Active magnesium oxide (MAG-OX) 400 MG tablet Take 1 tablet (400 mg total) by mouth daily. 30 tablet 3 023 Active Accu-Chek FastClix Lancets MiscIndications :Type 2 diabetes mellitus with stage 2 chronic kidney disease, with long-term current use of insulin ([facility]) Use to check blood sugar twice per day 200 each 2 023 Active ACCU-CHEK GUIDE TEST test stripIndication s:Type 2 diabetes mellitus with other specified complication, unspecified whether rodent exterminator insulin use ([facility]) USE TO CHECK BLOOD SUGAR TWICE A DAY 200 strip 1 024 Active fenofibrate (TRICOR) 145 MG tabletIndicatio ns:Dyslipidemia Take 1 tablet (145 mg total) by mouth daily. 90 tablet 1 025 Active rosuvastatin (CRESTOR) 20 MG tabletIndicatio ns:Dyslipidemia Take 1 tablet (20 mg total) by mouth daily. 90 tablet 1 025 Active Insulin Pen Needle (EMBECTA PEN NEEDLE ULTRAFINE) 32G X 6 MM MiscIndications :Diabetes mellitus ([facility]) USE WITH TRESIBA INJECTION DAILY 100 each 1 025 Active amiodarone (PACERONE) 200 MG tablet Take 1 tablet (200 mg total) by mouth daily. 60 tablet 1 025 Active apixaban (ELIQUIS) 5 MG tabletIndicatio ns:Atrial Fibrillation Take 1 tablet (5 mg total) by mouth 2 (two) times daily. Indications: Atrial Fibrillation 60 tablet 2 025 Active SITagliptin (ZITUVIO) 25 MG Tab Take 25 mg by mouth daily. 30 tablet 1 025 Active ferrous sulfate, 65 mg elemental, 325 (65 FE) MG tablet Take 1 tablet (325 mg total) by mouth daily with breakfast. 30 tablet 025 Active insulin degludec (TRESIBA FLEXTOUCH) 100 UNIT/ML Solution Pen-injector injectionIndica tions:Type 2 diabetes mellitus with other specified complication, unspecified whether nursing home insulin use ([facility]) Inject 50 units into the skin every evening 45 mL 1 025 Active probiotic (FLORAJEN3) Cap capsule Take 1 capsule by mouth 3 (three) times daily with meals. Active furosemide (LASIX) 40 MG tablet Take 1 tablet (40 mg total) by mouth daily. 30 tablet 5 025 Active pantoprazole EC (PROTONIX) 40 MG tabletIndicatio ns:Gastroesopha geal reflux disease without esophagitis TAKE 1 TABLET BY MOUTH EVERY DAY 90 tablet 025 Active ferrous sulfate, 65 mg elemental, 325 (65 FE) MG tabletIndicatio ns:Anemia due to blood loss Take 1 tablet (325 mg total) by mouth daily with breakfast. 90 tablet 025 2024 Discontinued icosapent ethyl (VASCEPA) 1 G capsuleIndicati ons:Hypertrigly ceridemia Take 2 capsules (2 g total) by mouth 2 (two) times daily with meals. Take with food. 360 capsule 1 025 2024 Discontinued(S top Taking at Discharge) pantoprazole EC (PROTONIX) 40 MG tabletIndicatio ns:Gastroesopha geal reflux disease without esophagitis Take 1 tablet (40 mg total) by mouth daily. 90 tablet 025 2024 Discontinued FARXIGA 10 MG tabletIndicatio ns:Stage 3b chronic kidney disease ([facility]/HCC),Type 2 diabetes mellitus with stage 4 chronic kidney disease, unspecified whether rodent exterminator insulin use ([facility]/HCC),Albumi milly Take 1 tablet (10 mg total) by mouth daily. 90 tablet 3 025 2024 Discontinued(S top Taking at Discharge) Active Problems Problem Noted Date Diagnosed Date Atrial fibrillation 08/08/2025 Assessment & Plan (08/08/2025 12:01 PM PRECISION HONER): New onset during hospitalization at the beginning of July. EKG today shows afib with controlled ventricular rates. Currently wearing a 2 week event monitor with a new LBBB post TAVR. Continue amiodarone and anticoagulation w/ eliquis. 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 Gastro-esophageal reflux disease without esophag itis 08/08/2025 Hypoglycemia due to type 2 diabetes mellitus 12/2024 Moderate protein-calorie malnutrition 08/08/2025 S/P TAVR (transcatheter aortic valve replacement ) 08/08/2025 Assessment & Plan (08/08/2025 11:56 AM PRECISION HONER): Successful transcatheter aortic valve replacement with Medtronic Evolut Pro FX+ #34 mm on 08/02/25. Post operative day 1 echocardiogram showed the TAVR valve is in the aortic position with post-deployment peak velocity of 1.87m/sec, mean gradient of 8mmHg and a calculated MEGHNA of 1.48cm2. Will reassess cardiac rehab at next office visit. Patient will require life long antibiotic prophylaxis prior to all dental procedures. Plan for a repeat echocardiogram in 1 month. Chronic heart failure with p reserved ejection fraction (HFpEF) 08/08/2025 Assessment & Plan (08/08/2025 11:58 AM PRECISION HONER): Appears mildly volume overloaded on exam Will start lasix 40mg daily with a repeat BMP in 1 week. Difficult to optimize GDMT with baseline CKD. LBBB (left bundle branch block) 08/08/2025 Assessment & Plan (08/08/2025 12:03 PM PRECISION HONER): New post TAVR. Currently wearing a 2 week MCOT. Severe aortic stenosis 08/02/2025 JOB (acute kidney injury) 07/19/2025 Elevated troponin 07/05/2025 Stage 3b chronic kidney disease 06/26/2025 Assessment & Plan (06/26/2025 7:21 AM CDT): He has stage IIIb CKD. He is aware of risks of renal injury with CT, cardiac cath and TAVR itself. Continue to follow with nephrology. Will plan for minimal dye use as much as possible. Anemia due to blood loss 05/13/2019 Gastrointestinal hemorrhage with melena 05/13/20 History of hemorrhagic stroke with residual shawnee paresis 05/13/2019 Weakness 12/08/2018 Dyslipidemia 04/23/2018 Cerebral infarction due to u nspecified occlusion or stenosis of right middle cerebral artery 03/07/2017 Occlusion and stenosis of right carotid artery 0 03/07/2017 Depression 07/20/2014 Type 2 diabetes mellitus 07/21/2013 Essential hypertension CAD (coronary artery disease) Assessment & Plan (06/26/2025 7:20 AM CDT): He has a history of coronary artery disease with PCI to the right coronary artery. He will undergo coronary angiography prior to aortic valve replacement. Continue medical management of coronary artery disease. AIMEE (obstructive sleep apnea) COPD (chronic obstructive pulmonary disease) Nonrheumatic aortic (valve) stenosis Overview (06/01/2018): moderate Assessment & Plan (06/26/2025 7:19 AM CDT): He has severe aortic valve stenosis and I recommend further evaluation for aortic valve replacement. He is likely a candidate for transcatheter aortic valve replacement given his other comorbidities especially his renal insufficiency. Transfemoral access appears to be possible given that his peripheral arterial disease is mostly below the knee and he has popliteal artery occlusions. There is a risk of dialysis with CTA TAVR and the TAVR itself and he is aware of those risks. I did discuss the procedure of transcatheter aortic valve replacement to the patient. I explained the procedure in detail including transfemoral access with placement of a balloon mounted valve inside the existing aortic valve. I explained the risks and benefits that include but are not limited to: bleeding, infection, vascular complication (10%), cerebrovascular accident (3 to 5%), permanent pacemaker placement (10%), myocardial infarction (1 to 2%), aortic root rupture (1 2%), valve embolization (1-2%) and even (1 to 2%). I did explain to the patient that if we were to proceed with transcatheter aortic valve replacement, we would have to proceed with the TAVR work-up that includes cardiac catheterization, CT scan and surgical evaluation. Renal artery stenosis Overview (06/01/2018): moderate right renal artery stenosis PAD (peripheral artery disease) Assessment & Plan (06/26/2025 7:20 AM CDT): He has a history of peripheral arterial disease including popliteal artery occlusion. It does not appear that he has any issues above the common femoral artery or in the external iliac or common iliac arteries. Transfemoral TAVR is likely an option. Resolved Problems Problem Noted Date Diagnosed Date Resolved Date Elevated troponin 05/13/2019 05/01/2020 Serum creatinine raised 05/13/201904/06 Nonrheumatic aortic valve stenosis 04/23/2018 06/23/2018 Heart murmur 03/11/2018 05/01/2020 Wears glasses 03/11/2018 05/01/2020 Essential hypertriglyceridemia 07/21/2013 01/16/2021 Diabetes mellitus 10/06/2005 01/16/2021 Abnormal echocardiogram 04/05 Hyperlipidemia 04/23/2018 Claudication 04/23/2018 CVA (cerebral vascular accident) 06/01/2018 Claudication 06/01/2018 Carotid stenosis, bilateral 06/01/2018 Encounters Date Type Department Care Team Description 08/28/2025 Hospital Encounter [facility] [place] [address] Huy Forbes MD 08/24/2025 Patient Outreach [facility] Family & Internal Medicine [address] [address] Bessie Estrada, RN TCM (TCM NBA 08/02-08/05/25 severe aortic stenosis. ) 08/23/2025 1:15 PM PRECISION HONER Office Visit [facility], [address] [id number] Carley Alvarez, ANP-BC Atrial Fibrillation (Follow up of event monitor) 08/23/2025 Travel 08/22/2025 Patient Outreach [facility] Family & Internal [address] [address] Bessie Estrada, [place] Hospital Follow Up (Call to [facility]) 08/19/2025 Telephone [facility], [address] [id number] Gay Lobato, RN Question 08/16/2025 Telephone [facility] Internal [address] [address] Nan Fountain MD Orders 08/15/2025 2:27 PM PRECISION HONER - 08/15/2025 11:59 PM PRECISION HONER Hospital Encounter [facility] [place] [address] Sarah Camacho MD Discharge Disposition: Home or Self Care (Routine Discharge) 08/15/2025 1:20 PM PRECISION HONER Office Visit [facility] Multispecialty Care - [facility] 3 [facility], [facility] [address] Sarah Camacho MD CKD Follow-up 08/15/2025 Scan HEALTH INFO SRVCS Scanned, [facility] 08/15/2025 Results Follow-Up [facility], [facility] [address] [place] [address] Shayla Morales, [place] BASIC METABOLIC PANEL 08/15/2025 Patient Outreach [facility] [address] [address] Bessie Estrada RN Hospital Follow Up (Call to [facility]) 08/15/2025 Travel 08/12/2025 Patient Outreach [facility] Family Internal [address] [address] Bessie Estrada RN Hospital Follow Up (Call to [facility]) 08/08/2025 11:15 AM PRECISION HONER Office Visit [facility], [facility] [address] [place] [address] Tanesha Ingram PA Aortic Valve Stenosis (1 wk TAVR follow up) 08/08/2025 Telephone [facility], [facility] [address] [place] [address] Tanesha Ingram PA Medication (furosemide) 08/08/2025 Travel 08/08/2025 Patient Outreach [facility] Internal [address] [address] Bessie Estrada RN TCM (TCM NBA 08/02-08/05/25- severe aortic stenosis. ) 08/08/2025 Hospital Follow-up Call [facility] Care Management [facility] [place] [address] Alisa Loya LPN Follow Up Call (08/02-08/05/25) 08/05/2025 Scan [employer] INFO SRVCS Scanned, [facility] 08/03/2025 1:00 PM CDT Telephone [facility], [facility] [address] [place] [address] Tanesha Ingram, PA Error 08/03/2025 Telephone [facility], [facility] [address] [place] [address] Tanesha Ingram, AVINASH Holter Monitor 08/02/2025 8:25 AM CDT Anesthesia Event [facility] [place] [address] Christal Obrien MD Jackson, Samantha Rae, FNP 08/02/2025 6:23 AM CDT - 08/05/2025 3:55 PM CDT Hospital Encounter [facility] [place] [address] Tia Johnson MD Portera Mankins, Sally B, MD Hayden, Sandra, CRNA Discharge Disposition: Home or Self Care (Routine Discharge) 08/02/2025 6:15 AM CDT - 08/02/2025 6:20 AM CDT Hospital Encounter [facility] Laboratory [place] [address] Tia Johnson MD Discharge Disposition: Home or Self Care (Routine Discharge) 08/02/2025 Patient Outreach [facility] Family & Internal Medicine [address] [address] Bessie Estrada, RN Hospital Follow Up (TCM NBA admit 08/02/25- severe aortic stenosis. ) 08/02/2025 Results Follow-Up [facility], [facility] [address] [place] [address] Shayla Morales, RN PRO BNP ([facility]) 08/02/2025 Travel 08/01/2025 Telephone [facility], [facility] [address] [place] [address] Tia Johnson MD Pre-op Surgery/Cosmetic 07/29/2025 2:33 PM CDT - 07/29/2025 11:59 PM CDT Hospital Encounter [facility] [place] [address] Tia Johnson MD Discharge Disposition: Home or Self Care (Routine Discharge) 07/29/2025 2:33 PM CDT - 07/29/2025 3:55 PM CDT Hospital Encounter [facility] Pre-[place] [address] Tia Johnson MD Discharge Disposition: Home or Self Care (Routine Discharge) 07/29/2025 Scan [facility], [address] [address] Tia Johnson MD 07/29/2025 Travel 07/26/2025 Telephone [facility] [address] [address] Nan Fountain MD Medication Information 07/25/2025 Prep for Procedure [facility] [place] [address] Tia Johnson MD Pre-op Surgery/Cosmetic 07/25/2025 Hospital Orders Only [facility] [place] [address] Tia Johnson MD 07/25/2025 Patient Outreach [facility] Family & Internal Medicine [facility] [address] [place] [address] Bessie Estrada RN Hospital Follow Up (Call to [facility] ) 07/22/2025 Scan [employer] HEALTH INFO SRVCS Scanned, [facility] 07/22/2025 Telephone [facility], [place] [address] Tia Johnson MD Schedule Procedure 07/19/2025 Prep for Procedure [facility], [place] [address] Otilio Garner MD 07/14/2025 Travel 07/13/2025 Travel 07/12/2025 2:57 PM CDT Anesthesia Event [place] [place] [address] Francine Barbour MD Portera Mankins, Sally B, MD 07/06/2025 Patient Outreach [facility] Family & Internal Medicine [facility] [phone] [place] [phone] Bessie Estrada RN Hospital Follow Up (TCM NBA admit 07/05/25- shortness of breath and hypoglycemia. ) 07/05/2025 11:48 AM CDT - 07/22/2025 11:28 AM CDT Hospital Encounter [facility] [place] [address] Chon Lobo MD D'Souza, Dominique C, MD Suresh, MD Ivonne Cevallos Vincent J, MD Filipova, Hana, MD Shortness Of Breath (Hypoglycemia/); Hypoglycemia Discharge Disposition: [facility] 07/05/2025 Travel 07/01/2025 8:47 AM CDT - 07/01/2025 11:59 PM CDT Hospital En[place] [facility] [place] [address] [place] [address] Nan Fountain MD Discharge Disposition: Home or Self Care (Routine Discharge) 07/01/2025 Results Follow-Up [facility] Family & Internal Medicine [facility] [address] [place] [phone] Nan Fountain MD MRI ABD WWO CON 07/01/2025 Travel 06/23/2025 Hospital Orders Only [facility] [place] [address] Sotero Rodríguez MD 06/21/2025 Telephone [facility] Family & Internal [facility] [address] [place] [address] Nan Fountain MD Radiology Results 06/20/2025 Results Follow-[facility], [address] [address] Shayla Morales, RN CTA TAVR 06/15/2025 11:20 AM CDT Office Visit [facility] [address] [phone] Sarah Camacho MD CKD Follow-up 06/15/2025 10:40 AM CDT - 06/15/2025 11:59 PM CDT Hospital Encounter [address] [address] Sarah Camacho MD Discharge Disposition: Home or Self Care (Routine Discharge) 06/15/2025 Travel 06/14/2025 Orders Only [facility]ty Care - [facility] 3 [facility], [address] [address] Sarah Camacho MD 06/10/2025 11:08 AM CDT - 06/10/2025 11:59 PM CDT Hospital Encounter [facility] [address] [place] [address] Tia Johnson MD Discharge Disposition: Home or Self Care (Routine Discharge) 06/10/2025 Patient Outreach [facility] [address] [place] [phone] Aziza Galvan LPN Pre-visit [facility] 06/10/2025 Telephone [facility] [place] [address] [place] [address] Sarah Camacho MD Question 06/10/2025 Travel 06/09/2025 10:15 AM CDT - 06/09/2025 11:59 PM CDT Hospital Encounter [facility] [address] [place] [address] Sarah Camacho MD Discharge Disposition: Home or Self Care (Routine Discharge) 06/09/2025 Travel 06/01/2025 1:30 PM CDT Office Visit [facility], [address] [address] Tia Johnson MD Consult; Aortic Valve Stenosis 06/01/2025 Travel from Last 3 Months Immunizations Immunization Administration Dates Next Due COVID-19 Vaccine (Generic) 09/30/2023 Fluzone (IIV3, Trivalent, 0. 5 ML Prefilled Syringe) 07/05/2025 Fluzone High Dose (IIV, triv alent, 0.5mL) 09/01/2024 Fluzone High Dose - >Age 65 (Prefilled Syringe) 07/10/2023,07/18/2022,06/14/2021,2019,08/10/2019,06/30/2018,07/11/2017 Influenza (Generic) 07/07/2014,10/19/2013,2012 Influenza Adult (Generic) 06/30/2018,03/2017,06/18/2016,2014 PFIZER COVID-19 (12+) MRNA, LNP-S, PF, BRIAN-SUCROSE, 30 MCG/0.3 ML (COMIRNATY) 09/01/2024 PFIZER COVID-19 (ORIGINAL FORMULATION, PURPLE CAP) mRNA, LNP-S, PF, 30 MCG/0.3 ML DOSE 09/21/2021,01/14/2021,12/19/2020 PFIZER COVID-19 BIVALENT (12 +) mRNA, LNP-S, PF, 30 MCG/0.3 ML DOSE 07/18/2022 Pneumococcal (Prevnar 13) 12/25/2015 Tdap (Generic) 11/21/2016 Zoster (Zostavax) 18220 Unt/0.65Ml 01/30/2016 Family History Medical History Relation Comments Stent Cardiac Brother CABG Father Coronary artery disease Father Macular Degeneration Mother Relation Status Comments Brother Alive Father (Age 90) Mother Social History Tobacco Use Types Packs/Day Years Used Date Smoking Tobacco: Former Cigarettes 2 35 1 970 - 2005 Smokeless Tobacco: Never Tobacco Cessation:Counseling Given: No Alcohol Use Standard Drinks/Week Comments Not Currently 0 (1 standard drink = 0.6 oz pur e alcohol) [facility] [employer] Answer Date Recorded In the past 12 months has e [employer], gas, oil, or water [employer] threatened to shut off services in your [...] any time in the past 12 m onths, were you homeless or living in a mcc (including now)? No 07/05/2025 Humiliation, Afraid, Rape, [...] any time in the past 12 m [facility], were you homeless or living in a mcc (including now)? No 08/02/2025 [facility] Utilities Answer Date Recorded In the past [...] file Not on file Not on file Last Filed Vital Signs Vital Sign Reading Time Taken Comments Blood Pressure 146/80 08/23/2025 1:28 PM PRECISION HONER Pulse 94 08/23/2025 1:28 PM PRECISION HONER Temperature 36.8 C (98.2 F) 08/15/2025 1:26 PM PRECISION HONER Respiratory Rate 16 08/08/2025 11:08 AM PRECISION HONER Oxygen Saturation 96% 08/23/2025 1:28 PM PRECISION HONER Inhaled Oxygen Concentration - - Weight 89.8 kg (198 lb) 08/23/2025 1:28 PM PRECISION HONER Height 177.8 cm (5' 10) 08/23/2025 1:28 PM PRECISION HONER Body Mass Index 28.41 08/23/2025 1:28 PM PRECISION HONER Plan of Treatment Upcoming Encounters Date Type Department Care Team (Late st Contact Info) Description 09/05/2025 8:00 AM PRECISION HONER Office Visit [facility] Family [facility] Internal Medicine [facility] [address] [place] [address] [place] [address] [place] [address] 09/15/2025 1:30 PM PRECISION HONER Appointment [facility] [place] [place] [address] Tanesha Ingram, PA 3 [facility], [facility] [address] [place] [address] 09/15/2025 2:30 PM PRECISION HONER Office Visit [facility], [facility] [address] [place] [address] Tanesha Ingram PA 3 [facility], [facility] [address] [place] [address] 09/16/2025 1:00 PM PRECISION HONER Appointment [facility] [place] [address] Sotero Rodríguez MD Three [facility]. [facility] [address] [place] [address] 09/16/2025 1:30 PM PRECISION HONER Appointment [facility] [place] [address] Sotero Rodríguez MD Three [facility]. [facility] [address] [place] [address] 10/17/2025 1:00 PM PRECISION HONER Office Visit [facility] Mult[facility]ty Care - [facility] 3 [facility], [facility] [address] [place] [phone] Sarah Camacho MD 3 [facility], [facility] [address] [place] [address] 11/16/2025 12:20 PM PRECISION HONER Office Visit [facility] [address] [phone] Sarah Camacho MD 3 [facility], [facility] [address] [place] [address] 02/14/2026 9:00 AM CDT Appointment [facility] [place] [address] Jesus Aragon MD Three [facility]. [facility] [address] [place] [address] 02/24/2026 9:30 AM CDT Office Visit [facility], [place] [address] [place] [address] Jesus Aragon MD Three [facility]. [facility] [address] [place] [address] Health Maintenance Due Date Last Done Comments Colorectal Cancer Screening Colonoscopy (10 Years) 1952 Hepatitis C 1970 RSV Immunization or 60+ Years (1 - Risk 60-74 years 1-dose series) 2012 Zoster Vaccines (2 of 3) 03/26/2016 01/30/2016 Annual Medicare Wellness Visit 2017 Diabetes: Retinopathy Eye Exam 10/31/2023 10/31/2022, 06/23/2019 COVID-19 Vaccine ( season) 2025 09/01/2024, 09/30/2023, 07/18/2022, Additional history exists Hemoglobin A1C 01/02/2026 07/05/2025, 0805/2025, 11/04/2024, Additional history exists Lipid Panel 07/06/2026 07/06/2025, 1010/2024, 11/04/2024, Additional history exists DTaP, Tdap and Td Vaccines (2 - Td or Tdap) 11/21/2026 11/21/2016 Pneumococcal Vaccine: 50+ Years (2 of 2 - PPSV23, PCV20, or PCV21) 06/12/2038 12/25/2015 Postponed from 02/19/2016 (Awaiting Documentation) AAA SCREENING Completed 06/10/2025, 01/16/2017 Influenza Adult Completed 07/05/2025, 08/07, 07/10/2023, Additional history exists PHQ-2 (Physician [place]) Completed 08/15/2025 Hepatitis A Vaccines Aged Out No long er eligible based on patient's age to complete this topic Meningococcal B Vaccine Aged Out No l onger eligible based on patient's age to complete this topic Meningococcal Vaccine Aged Out No godwin aishwarya eligible based on patient's age to complete this topic RSV Immunizations Under 20 Months Aged Out No longer eligible based on patient's age to complete this topic Medical Devices Implanted Type Area [employer] Decorator Device Identifier Shelf Expiration Date Model / Serial / Lot Stent Stent Chest Aortic Valve Implant-2024 Implanted:Qty: 1 on 08/02/2025 by Tia Johnson MD Valve Implant [employer] 02/18/2027 [id number] / [id number] / Procedures Procedure Name Priority Date/Time Associated Diagnosis Comments ELECTROCARDIOGRAM (NON MIDMARK ACQUIRED) Routine 08/23/2025 1:26 PM PRECISION [facility]ONER Atrial fibrillation, unspecified type ([facility]) ALBUMIN URINE RANDOM W/CREATININE Routine 08/15/2025 2:45 PM PRECISION HONER CKD (chronic kidney disease) stage 4, GFR 15-29 ml/min ([facility]) HC CBC W/O DIFF Routine 08/15/2025 2:45 PM PRECISION HONER CKD (chronic kidney disease) stage 4, GFR 15-29 ml/min ([facility]) BASIC METABOLIC PANEL Routine 08/15/2025 2:45 PM PRECISION HONER Severe aortic stenosis ELECTROCARDIOGRAM (NON MIDMARK ACQUIRED) Routine 08/08/2025 11:22 AM PRECISION HONER Severe aortic stenosis HOME O2 EVAL Routine 08/05/2025 8:46 AM CDT MAGNESIUM Routine 08/05/2025 5:23 AM CDT CBC W/DIFF AUTOMATED Routine 08/05/2025 5:23 AM CDT MAGNESIUM Routine 08/04/2025 4:24 AM CDT BASIC METABOLIC PANEL Routine 08/04/2025 4:24 AM CDT CBC W/DIFF AUTOMATED Routine 08/04/2025 4:24 AM CDT CULTURE LOWER RESPIRATORY W/GRAM STAIN Routine 08/03/2025 3:30 PM CDT USE ECHO LTD Routine 08/03/2025 11:41 AM CDT ECG 12-LEAD STAT 08/03/2025 8:00 AM CDT ECG 12-LEAD STAT 08/03/2025 7:41 AM CDT POCT GLUCOSE - DOCKED DEVICE Routine 08/03/2025 6:27 AM CDT MAGNESIUM Routine 08/03/2025 6:21 AM CDT BASIC METABOLIC PANEL Routine 08/03/2025 6:21 AM CDT CBC W/DIFF AUTOMATED Routine 08/03/2025 6:21 AM CDT XR CHEST PORTABLE Routine 08/03/2025 4:4 7 AM CDT POCT GLUCOSE - DOCKED DEVICE Routine 08/02/2025 7:38 PM CDT ECG 12-LEAD Routine 08/02/2025 3:20 PM CDT POCT GLUCOSE - DOCKED DEVICE Routine 08/02/2025 2:48 PM CDT HC BLOOD GAS PH PO2 &/OR PCO2 STAT 08/02/2025 1:20 PM CDT HC BLOOD GAS PH PO2 &/OR PCO2 STAT 08/02/2025 11:06 AM CDT XR CHEST PORTABLE STAT 08/02/2025 10: 50 AM CDT POCT GLUCOSE - DOCKED DEVICE Routine 08/02/2025 10:46 AM CDT ECG 12-LEAD Routine 08/02/2025 10:38 AM CDT USE ECHO LTD TIMED 08/02/2025 10:25 AM CDT PROCALCITONIN (PCT) Routine 08/02/2025 1 0:20 AM CDT HC MAGNESIUM STAT 08/02/2025 10:20 AM CDT HC BASIC METABOLIC PANEL STAT 025 10:20 AM CDT HC CBC AUTO W/AUTO DIFF STAT 08/02/20 10:20 AM CDT XA TAVR Routine 08/02/2025 10:19 AM CDT Nonrheumatic aortic (valve) stenosis Encounter for examination for normal comparison or control in clinical research program CG8 PLUS-ISTAT Routine 08/02/2025 10:12 AM CDT CG8 PLUS-ISTAT Routine 08/02/2025 9:46 AM CDT POCT ACTIVATED CLOTTING TIME - ISTAT DOCKED DEVICE Routine 08/02/2025 9:43 AM CDT ART LINE PLACEMENT Routine 08/02/2025 8: 35 AM CDT POCT GLUCOSE - DOCKED DEVICE Routine 08/02/2025 7:32 AM CDT PRO-BRAIN NATRIURETIC PEPTIDE Routine 08/02/2025 6:27 AM CDT Nonrheumatic aortic (valve) stenosis SOB (shortness of breath) on exertion Severe aortic stenosis XR CHEST PA+LAT Routine 07/29/2025 3:48 PM CDT ECG 12-LEAD Routine 07/29/2025 3:19 PM CDT HC AB SCREEN STAT 07/29/2025 3:05 PM CDT HC PTT STAT 07/29/2025 3:05 PM CDT HC PROTHROMBIN TIME (PT) STAT 025 3:05 PM CDT HC COMPREHENSIVE METABOLIC PANEL STAT 07/29/2025 3:05 PM CDT HC CBC AUTO W/AUTO DIFF STAT 07/29/20 25 3:05 PM CDT MRSA SCREENING STAT 07/29/2025 3:04 PM CDT POCT GLUCOSE - DOCKED DEVICE Routine 07/22/2025 8:32 AM CDT HC BASIC METABOLIC PANEL Routine 025 3:26 AM CDT HC CBC AUTO W/AUTO DIFF Routine 07/22/20 3:26 AM CDT HEPARIN, ANTI XA, UFH TIMED 07/22/2025 3:26 AM CDT HC PTT Routine 07/22/2025 3:26 AM CDT POCT GLUCOSE - DOCKED DEVICE Routine 07/21/2025 9:07 PM CDT POCT GLUCOSE - DOCKED DEVICE Routine 07/21/2025 5:33 PM CDT POCT GLUCOSE - DOCKED DEVICE Routine 07/21/2025 12:23 PM CDT POCT GLUCOSE - DOCKED DEVICE Routine 07/21/2025 8:24 AM CDT HC CBC AUTO W/AUTO DIFF Routine 07/21/20 6:00 AM CDT HC BASIC METABOLIC PANEL Routine 025 6:00 AM CDT HEPARIN, ANTI XA, UFH TIMED 07/21/2025 6:00 AM CDT HC PTT Routine 07/21/2025 6:00 AM CDT HEPARIN, ANTI XA, UFH STAT 07/20/2025 10:15 PM CDT POCT GLUCOSE - DOCKED DEVICE Routine 07/20/2025 9:03 PM CDT POCT GLUCOSE - DOCKED DEVICE Routine 07/20/2025 6:19 PM CDT POCT GLUCOSE - DOCKED DEVICE Routine 07/20/2025 12:18 PM CDT POCT GLUCOSE - DOCKED DEVICE Routine 07/20/2025 8:44 AM CDT HC CBC AUTO W/AUTO DIFF Routine 07/20/20 5:30 AM CDT HC BASIC METABOLIC PANEL Routine 025 5:30 AM CDT HEPARIN, ANTI XA, UFH TIMED 07/20/2025 5:30 AM CDT HC PROTHROMBIN TIME (PT) Routine 5:30 AM CDT HC PTT Routine 07/20/2025 5:30 AM CDT POCT GLUCOSE - DOCKED DEVICE Routine 07/19/2025 8:55 PM CDT POCT GLUCOSE - DOCKED DEVICE Routine 07/19/2025 5:53 PM CDT POCT GLUCOSE - DOCKED DEVICE Routine 07/19/2025 12:14 PM CDT POCT GLUCOSE - DOCKED DEVICE Routine 07/19/2025 6:48 AM CDT HC COMPREHENSIVE METABOLIC PANEL Routine 07/19/2025 4:39 AM CDT HC CBC AUTO W/AUTO DIFF Routine 07/19/20 4:39 AM CDT HEPARIN, ANTI XA, UFH TIMED 07/19/2025 4:39 AM CDT HC PROTHROMBIN TIME (PT) Routine 025 4:39 AM CDT HC PTT Routine 07/19/2025 4:39 AM CDT POCT GLUCOSE - DOCKED DEVICE Routine 07/18/2025 8:44 PM CDT POCT GLUCOSE - DOCKED DEVICE Routine 07/18/2025 4:46 PM CDT POCT GLUCOSE - DOCKED DEVICE Routine 07/18/2025 1:07 PM CDT POCT GLUCOSE - DOCKED DEVICE Routine 07/18/2025 7:25 AM CDT HC COMPREHENSIVE METABOLIC PANEL Routine 07/18/2025 5:15 AM CDT HC CBC AUTO W/AUTO DIFF Routine 07/18/20 5:15 AM CDT HEPARIN, ANTI XA, UFH TIMED 07/18/2025 5:15 AM CDT HC PROTHROMBIN TIME (PT) Routine 025 5:15 AM CDT HC PTT Routine 07/18/2025 5:15 AM CDT POCT GLUCOSE - DOCKED DEVICE Routine 07/17/2025 8:02 PM CDT POCT GLUCOSE - DOCKED DEVICE Routine 07/17/2025 5:31 PM CDT POCT GLUCOSE - DOCKED DEVICE Routine 07/17/2025 12:22 PM CDT POCT GLUCOSE - DOCKED DEVICE Routine 07/17/2025 8:13 AM CDT HC COMPREHENSIVE METABOLIC PANEL Routine 07/17/2025 3:55 AM CDT HC CBC AUTO W/AUTO DIFF Routine 07/17/20 3:55 AM CDT HEPARIN, ANTI XA, UFH TIMED 07/17/2025 3:55 AM CDT HC PROTHROMBIN TIME (PT) Routine 025 3:55 AM CDT HC PTT Routine 07/17/2025 3:55 AM CDT POCT GLUCOSE - DOCKED DEVICE Routine 07/16/2025 8:10 PM CDT POCT GLUCOSE - DOCKED DEVICE Routine 07/16/2025 4:19 PM CDT HEPARIN, ANTI XA, UFH TIMED 07/16/2025 1:40 PM CDT POCT GLUCOSE - DOCKED DEVICE Routine 07/16/2025 12:34 PM CDT ECG 12-LEAD Routine 07/16/2025 12:07 PM CDT HC BASIC METABOLIC PANEL TIMED 6:20 AM CDT HC CBC AUTO W/AUTO DIFF TIMED 07/16/20 6:20 AM CDT HEPARIN, ANTI XA, UFH TIMED 07/16/2025 6:20 AM CDT HC PROTHROMBIN TIME (PT) Routine 6:20 AM CDT HC PTT Routine 07/16/2025 6:20 AM CDT POCT GLUCOSE - DOCKED DEVICE Routine 07/16/2025 6:18 AM CDT POCT GLUCOSE - DOCKED DEVICE Routine 07/15/2025 8:34 PM CDT HEPARIN, ANTI XA, UFH TIMED 07/15/2025 8:30 PM CDT POCT GLUCOSE - DOCKED DEVICE Routine 07/15/2025 5:48 PM CDT HEPARIN, ANTI XA, UFH STAT 07/15/2025 2:47 PM CDT POCT GLUCOSE - DOCKED DEVICE Routine 07/15/2025 12:43 PM CDT TRANSFUSE RED BLOOD CELLS Routine 2024 7:51 AM CDT POCT GLUCOSE - DOCKED DEVICE Routine 07/15/2025 6:41 AM CDT TYPE & SCREEN Routine 07/15/2025 6:20 AM CDT HC COMPREHENSIVE METABOLIC PANEL Routine 07/15/2025 4:40 AM CDT HC CBC AUTO W/AUTO DIFF Routine 07/15/20 25 4:40 AM CDT HEPARIN, ANTI XA, UFH TIMED 07/15/2025 4:40 AM CDT HC PROTHROMBIN TIME (PT) Routine 025 4:40 AM CDT HC PTT Routine 07/15/2025 4:40 AM CDT POCT GLUCOSE - DOCKED DEVICE Routine 07/14/2025 9:20 PM CDT HEPARIN, ANTI XA, UFH TIMED 07/14/2025 7:40 PM CDT POCT GLUCOSE - DOCKED DEVICE Routine 07/14/2025 5:54 PM CDT POCT GLUCOSE - DOCKED DEVICE Routine 07/14/2025 1:02 PM CDT HEMOGLOBIN AND HEMATOCRIT TIMED 2024 11:25 AM CDT HEPARIN, ANTI XA, UFH TIMED 07/14/2025 11:25 AM CDT HC BLOOD GAS PH PO2 &/OR PCO2 Routine 07/14/2025 10:08 AM CDT POCT GLUCOSE - DOCKED DEVICE Routine 07/14/2025 5:56 AM CDT HC CBC AUTO W/AUTO DIFF Routine 07/14/20 3:20 AM CDT HC COMPREHENSIVE METABOLIC PANEL Routine 07/14/2025 3:20 AM CDT HEPARIN, ANTI XA, UFH TIMED 07/14/2025 3:20 AM CDT HC PROTHROMBIN TIME (PT) Routine 3:20 AM CDT HC PTT Routine 07/14/2025 3:20 AM CDT POCT GLUCOSE - DOCKED DEVICE Routine 07/13/2025 8:27 PM CDT POCT GLUCOSE - DOCKED DEVICE Routine 07/13/2025 5:07 PM CDT HEPARIN, ANTI XA, UFH TIMED 07/13/2025 3:10 PM CDT POCT GLUCOSE - DOCKED DEVICE Routine 07/13/2025 11:41 AM CDT XR CHEST PORTABLE STAT 07/13/2025 9:0 6 AM CDT HEPARIN, ANTI XA, UFH TIMED 07/13/2025 8:57 AM CDT POCT GLUCOSE - DOCKED DEVICE Routine 07/13/2025 6:19 AM CDT XR CHEST PA OR AP 1V STAT 07/13/2025 5:25 AM CDT HC COMPREHENSIVE METABOLIC PANEL Routine 07/13/2025 4:41 AM CDT HC CBC AUTO W/AUTO DIFF Routine 07/13/20 4:41 AM CDT HC PROTHROMBIN TIME (PT) Routine 025 4:41 AM CDT HC PTT Routine 07/13/2025 4:41 AM CDT HEPARIN, ANTI XA, UFH TIMED 07/13/2025 1:56 AM CDT HC BLOOD GAS PH PO2 &/OR PCO2 Routine 07/13/2025 1:18 AM CDT POCT GLUCOSE - DOCKED DEVICE Routine 07/12/2025 8:57 PM CDT HC PROTHROMBIN TIME (PT) STAT 6:53 PM CDT HEPARIN, ANTI XA, UFH STAT 07/12/2025 6:53 PM CDT HC CBC AUTO W/AUTO DIFF STAT 07/12/20 6:53 PM CDT HC BASIC METABOLIC PANEL TIMED 6:53 PM CDT ECG 12-LEAD Routine 07/12/2025 5:49 PM CDT XA VALVULOPLASTY Today 07/12/2025 5:21 PM CDT USE ECHO LTD Today 07/12/2025 4:26 PM CDT POCT ACTIVATED CLOTTING TIME - ISTAT DOCKED DEVICE Routine 07/12/2025 4:03 PM CDT CG8 PLUS-ISTAT Routine 07/12/2025 4:01 PM CDT POCT GLUCOSE - DOCKED DEVICE Routine 07/12/2025 12:18 PM CDT INTUBATION Routine 07/12/2025 11:29 AM CDT HC PTT Routine 07/12/2025 4:58 AM CDT HC PHOSPHORUS Routine 07/12/2025 4:58 AM CDT HC MAGNESIUM Routine 07/12/2025 4:58 AM CDT HC CBC AUTO W/AUTO DIFF Routine 07/12/20 25 4:58 AM CDT HC BASIC METABOLIC PANEL Routine 025 4:58 AM CDT POCT GLUCOSE - DOCKED DEVICE Routine 07/11/2025 8:47 PM CDT POCT GLUCOSE - DOCKED DEVICE Routine 07/11/2025 6:37 PM CDT HEMOGLOBIN AND HEMATOCRIT Routine 2024 4:58 PM CDT POCT GLUCOSE - DOCKED DEVICE Routine 07/11/2025 11:31 AM CDT POCT GLUCOSE - DOCKED DEVICE Routine 07/11/2025 8:33 AM CDT HC BASIC METABOLIC PANEL TIMED 025 8:00 AM CDT TRANSFUSE RED BLOOD CELLS Routine 2024 7:55 AM CDT TYPE & SCREEN Routine 07/11/2025 6:35 AM CDT HC PTT Routine 07/11/2025 5:10 AM CDT HC PHOSPHORUS Routine 07/11/2025 5:10 AM CDT HC MAGNESIUM Routine 07/11/2025 5:10 AM CDT HC CBC AUTO W/AUTO DIFF Routine 07/11/20 25 5:10 AM CDT HC BASIC METABOLIC PANEL Routine 025 5:10 AM CDT HC BASIC METABOLIC PANEL TIMED 12:05 AM CDT POCT GLUCOSE - DOCKED DEVICE Routine 07/10/2025 8:01 PM CDT POCT GLUCOSE - DOCKED DEVICE Routine 07/10/2025 5:22 PM CDT HC BASIC METABOLIC PANEL TIMED 4:05 PM CDT POCT GLUCOSE - DOCKED DEVICE Routine 07/10/2025 11:49 AM CDT HC BASIC METABOLIC PANEL TIMED 8:29 AM CDT POCT GLUCOSE - DOCKED DEVICE Routine 07/10/2025 8:18 AM CDT HC HEP B SURFACE AB Routine 07/10/2025 5 :00 AM CDT HC EIA QL HEPATITIS ABC B AG Routine 07/10/2025 5:00 AM CDT HC PHOSPHORUS Routine 07/10/2025 5:00 AM CDT HC MAGNESIUM Routine 07/10/2025 5:00 AM CDT HC CBC AUTO W/AUTO DIFF Routine 07/10/20 5:00 AM CDT HC BASIC METABOLIC PANEL Routine 5:00 AM CDT BLOOD GAS, VENOUS Routine 07/10/2025 1:5 0 AM CDT HC PTT TIMED 07/10/2025 1:40 AM CDT HC BASIC METABOLIC PANEL TIMED 12:15 AM CDT POCT GLUCOSE - DOCKED DEVICE Routine 07/09/2025 9:21 PM CDT HC PTT TIMED 07/09/2025 9:00 PM CDT POCT GLUCOSE - DOCKED DEVICE Routine 07/09/2025 7:18 PM CDT CALCIUM, IONIZED BG Routine 07/09/2025 6 :18 PM CDT POCT GLUCOSE - DOCKED DEVICE Routine 07/09/2025 5:29 PM CDT CENTRAL LINE Routine 07/09/2025 4:17 PM CDT XR CHEST PORTABLE STAT 07/09/2025 3:3 6 PM CDT HC PTT TIMED 07/09/2025 2:25 PM CDT POCT GLUCOSE - DOCKED DEVICE Routine 07/09/2025 11:36 AM CDT POCT GLUCOSE - DOCKED DEVICE Routine 07/09/2025 6:01 AM CDT HC CBC AUTO W/AUTO DIFF Routine 07/09/20 25 4:18 AM CDT HC BASIC METABOLIC PANEL Routine 025 4:18 AM CDT HC PTT Routine 07/09/2025 4:18 AM CDT POCT GLUCOSE - DOCKED DEVICE Routine 07/08/2025 8:48 PM CDT POCT GLUCOSE - DOCKED DEVICE Routine 07/08/2025 5:29 PM CDT MRSA SCREENING Routine 07/08/2025 1:45 PM CDT HC BLOOD GAS PH PO2 &/OR PCO2 STAT 07/08/2025 12:00 PM CDT POCT GLUCOSE - DOCKED DEVICE Routine 07/08/2025 11:47 AM CDT HC FIBRINOGEN Routine 07/08/2025 11:41 AM CDT ANTITHROMBIN III ACT W/REFLEX TO AG Routine 07/08/2025 11:41 AM CDT POCT GLUCOSE - DOCKED DEVICE Routine 07/08/2025 6:19 AM CDT HC PTT STAT 07/08/2025 2:56 AM CDT HC LACTATE/LACTIC ACID STAT 1:12 AM CDT HC AMMONIA Routine 07/08/2025 1:12 AM CDT TYPE & SCREEN Routine 07/08/2025 1:01 AM CDT HC COMPREHENSIVE METABOLIC PANEL STAT 07/08/2025 1:00 AM CDT HC CBC AUTO W/AUTO DIFF STAT 07/08/20 1:00 AM CDT HC BLOOD GAS PH PO2 &/OR PCO2 STAT 07/08/2025 12:49 AM CDT POCT GLUCOSE - DOCKED DEVICE Routine 07/08/2025 12:42 AM CDT ECG 12-LEAD Routine 07/08/2025 12:34 AM CDT POCT GLUCOSE - DOCKED DEVICE Routine 07/07/2025 11:27 PM CDT HC BLOOD GAS PH PO2 &/OR PCO2 Routine 07/07/2025 9:50 PM CDT HC PTT TIMED 07/07/2025 8:37 PM CDT HC BLOOD GAS PH PO2 &/OR PCO2 STAT 07/07/2025 8:25 PM CDT XR CHEST PORTABLE STAT 07/07/2025 8:2 2 PM CDT POCT GLUCOSE - DOCKED DEVICE Routine 07/07/2025 7:56 PM CDT HC JAZIEL DIRECT Routine 07/07/2025 5:06 PM CDT HC IMMUNOGLOBULIN LIGHT CHAINS- 90 Routine 07/07/2025 5:06 PM CDT PROTEIN, TOTAL AND PROTEIN ELECTROPH. W/IMMUNOFIX, SERUM Routine 07/07/2025 5:06 PM CDT HC IRON TOTAL Routine 07/07/2025 5:06 PM CDT HC FOLIC ACID SERUM Routine 07/07/2025 5 :06 PM CDT HC VITAMIN B12 Routine 07/07/2025 5:06 PM CDT HC FERRITIN Routine 07/07/2025 5:06 PM CDT HC HAPTOGLOBIN Routine 07/07/2025 5:06 PM CDT HC LIVER (HEPATIC) PANEL Routine 025 5:06 PM CDT HC BLOOD COUNT RETICULOCYTES AUTO Routine 07/07/2025 5:06 PM CDT HC LACTATE DEHYDRO (LDH) Routine 025 5:06 PM CDT POCT GLUCOSE - DOCKED DEVICE Routine 07/07/2025 4:20 PM CDT HC PROTHROMBIN TIME (PT) STAT 025 2:37 PM CDT HC PTT STAT 07/07/2025 2:37 PM CDT HC BASIC METABOLIC PANEL TIMED 025 2:37 PM CDT HEPARIN, ANTI XA, UFH TIMED 07/07/2025 12:26 PM CDT POCT GLUCOSE - DOCKED DEVICE Routine 07/07/2025 10:38 AM CDT XR CHEST PORTABLE STAT 07/07/2025 9:0 5 AM CDT PRO-BRAIN NATRIURETIC PEPTIDE STAT 07/07/2025 8:55 AM CDT HC BASIC METABOLIC PANEL Routine 025 7:03 AM CDT POCT GLUCOSE - DOCKED DEVICE Routine 07/07/2025 6:35 AM CDT POCT GLUCOSE - DOCKED DEVICE Routine 07/07/2025 5:41 AM CDT PROCALCITONIN (PCT) Routine 07/07/2025 4 :31 AM CDT HC CBC AUTO W/AUTO DIFF Routine 07/07/20 4:31 AM CDT HEPARIN, ANTI XA, UFH TIMED 07/07/2025 4:31 AM CDT POCT GLUCOSE - DOCKED DEVICE Routine 07/07/2025 3:19 AM CDT ECG 12-LEAD Routine 07/06/2025 11:29 PM CDT HEPARIN, ANTI XA, UFH TIMED 07/06/2025 9:18 PM CDT POCT GLUCOSE - DOCKED DEVICE Routine 07/06/2025 7:46 PM CDT POCT GLUCOSE - DOCKED DEVICE Routine 07/06/2025 3:47 PM CDT HEPARIN, ANTI XA, UFH TIMED 07/06/2025 1:44 PM CDT POCT GLUCOSE - DOCKED DEVICE Routine 07/06/2025 11:56 AM CDT POCT GLUCOSE - DOCKED DEVICE Routine 07/06/2025 7:24 AM CDT POCT GLUCOSE - DOCKED DEVICE Routine 07/06/2025 6:47 AM CDT POCT GLUCOSE - DOCKED DEVICE Routine 07/06/2025 6:33 AM CDT POCT GLUCOSE - DOCKED DEVICE Routine 07/06/2025 6:10 AM CDT HC CHOLESTEROL LDL Routine 07/06/2025 5: 37 AM CDT HEPARIN, ANTI XA, UFH TIMED 07/06/2025 5:37 AM CDT HC LIPID PANEL Routine 07/06/2025 5:37 AM CDT HC BASIC METABOLIC PANEL Routine 5:37 AM CDT HC CBC AUTO W/AUTO DIFF Routine 07/06/20 5:37 AM CDT GI PANEL PCR - STOOL STAT 07/06/2025 12:32 AM CDT HEPARIN, ANTI XA, UFH STAT 07/05/2025 9:30 PM CDT POCT GLUCOSE - DOCKED DEVICE Routine 07/05/2025 8:02 PM CDT POCT GLUCOSE - DOCKED DEVICE Routine 07/05/2025 3:48 PM CDT HC TROPONIN QN STAT 07/05/2025 3:06 PM CDT HC URINALYSIS AUTO W/O MICRO STAT 07/05/2025 12:49 PM CDT ELECTROCARDIOGRAM REPORT Routine 12:31 PM CDT XR CHEST PORTABLE STAT 07/05/2025 12: 29 PM CDT ECG 12-LEAD Routine 07/05/2025 12:16 PM CDT CORONAVIRUS (COVID 19) STAT 12:09 PM CDT HC QL INFLUENZA A/B STAT 07/05/2025 1 2:09 PM CDT HC GLYCOSYLATED HGB Routine 07/05/2025 1 2:09 PM CDT PRO-BRAIN NATRIURETIC PEPTIDE STAT 07/05/2025 12:09 PM CDT LACTIC ACID W REFLEX (SEPSIS) STAT 07/05/2025 12:09 PM CDT HC TROPONIN QN STAT 07/05/2025 12:09 PM CDT HC COMPREHENSIVE METABOLIC PANEL STAT 07/05/2025 12:09 PM CDT HC PTT STAT 07/05/2025 12:09 PM CDT HC PROTHROMBIN TIME (PT) STAT 025 12:09 PM CDT HC CBC AUTO W/AUTO DIFF STAT 07/05/20 25 12:09 PM CDT HEPARIN, ANTI XA, UFH STAT 07/05/2025 12:08 PM CDT POCT GLUCOSE - DOCKED DEVICE Routine 07/05/2025 11:52 AM CDT MRI ABD WWO CON SARAY 07/01/2025 10:12 AM CDT Liver mass HC BASIC METABOLIC PANEL Routine 025 10:44 AM CDT CKD (chronic kidney disease) stage 4, GFR 15-29 ml/min ([facility]) CT TAVR HEART Routine 06/10/2025 11:51 AM CDT Nonrheumatic aortic (valve) stenosis CTA TAVR Routine 06/10/2025 11:51 AM CDT Nonrheumatic aortic (valve) stenosis HC CREATININE OTH SOURCE Routine 10:40 AM CDT CKD (chronic kidney disease) stage 4, GFR 15-29 ml/min ([facility]/HCC) HC MICROALBUMIN URINE QN Routine 10:39 AM CDT CKD (chronic kidney disease) stage 4, GFR 15-29 ml/min (CMS/HCC HHS/HCC) HC BASIC METABOLIC PANEL Routine 10:20 AM CDT CKD (chronic kidney disease) stage 4, GFR 15-29 ml/min (CMS/HCC HHS/HCC) ELECTROCARDIOGRAM (NON MIDMARK ACQUIRED) Routine 06/01/2025 1:47 PM CDT Nonrheumatic aortic (valve) stenosis DIABETIC RETINOPATHY EXAM (POSITIVE)(SCAN ORDER) Routine 10/31/2022 from Last 3 Months or Most Recently Relevant to Health Maintenance Results * ELECTROCARDIOGRAM (08/23/2025 1:26 PM [facility]) Only the most recent of3 resultswithin the time period is included. 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[id number] Requested By: SOTERO RODRÍGUEZ Order Number: [id number] Reading MD: Maldonado Allen Measurements Intervals Margie Rate: 94 P: 0 NV: 0 QRS: 125 QRSD: 199 T: 0 QT: 463 QTc: 581 Interpretive Statements ATRIAL FLUTTER/TACHYCARDIA RIGHT AXIS DEVIATION RIGHT BUNDLE BRANCH BLOCK ST DEPRESSION, CONSIDER SUBENDOCARDIAL INJURY Since prior tracing, Right Bundle Branch Block now present ISION [facility]ONER Procedure Note Maldonado Allen MD - 08/26/2025 Jay Young [facility] Test Date: 2025-08-23 Pat Name: CARLOS MAHAJAN Department: 112 Room: Gender: Male 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1950 Requested By: SOTERO RODRÍGUEZ Order Number: [id number] Reading MD: Maldonado Allen Measurements Intervals Margie Rate: 94 P: 0 NV: 0 QRS: 125 QRSD: 199 T: 0 QT: 463 QTc: 581 Interpretive Statements ATRIAL FLUTTER/TACHYCARDIA RIGHT AXIS DEVIATION RIGHT BUNDLE BRANCH BLOCK ST DEPRESSION, CONSIDER SUBENDOCARDIAL INJURY Since prior tracing, Right Bundle Branch Block now present ISION HONER us Sotero Rodríguez MD PROCEDURES-ORDERABLE NO CHARGE F inal Result ANIA MCCLAIN * (ABNORMAL) CBC, AUTO, NO DIFF (08/15/2025 2:45 PM PRECISION [facility]ONER) WBC 3.82(L) 4.5 - 11.0 x10'3/uL 08/15/2025 3:38 PM [facility] RBC 2.97(L) 4.70 - 6.10 x10'6/uL 08/15/2025 3:38 PM [facility] HGB 9.5(L) 14.0 - 18.0 G/DL 08/15/2025 3:38 PM [facility] HCT 30.5(L) 43.0 - 54.0 % 08/15/2025 3:38 PM [facility] MCV 102.7(H) 80.0 - 94.0 FL 08/15/2025 3:38 PM [facility] MCH 32.0(H) 27.0 - 31.0 PG 08/15/2025 3:38 PM [facility] MCHC 31.1(L) 32.0 - 36.0 G/DL 08/15/2025 3:38 PM [facility] RDW 17.9(H) 11.5 - 14.5 % 08/15/2025 3:38 PM [facility] PLT 569(H) 130 - 400 x10'3/uL 08/15/2025 3:38 PM [facility] MPV 10.3 9.3 - 12.2 FL 08/15/2025 3:38 PM [facility] BLOOD VENOUS BLOOD SPECIMEN / Unknown 08/15/2025 2:45 PM PRECISION [facility]ER us Sarah Camacho MD LABORATORY Final Result [facility] [address] [place] [address], [place] [phone] * (ABNORMAL) BASIC METABOLIC PANEL (08/15/2025 2:45 PM PRECISION [facility]ONER) [facility] GLUCOSE 178(H) 70 - 99 MG/DL 08/15/2025 3:34 PM [facility] BUN 51(H) 7 - 18 MG/DL 08/15/2025 3:34 PM [facility] CREATININE S/P/B 3.25(H) 0.7 - 1.3 MG/DL 08/15/2025 3:34 PM [facility] SODIUM S/P/B 142 136 - 145 MMOL/L 08/15/2025 3:34 PM [facility] POTASSIUM S/P/B 3.9 3.5 - 5.1 MMOL/L 08/15/2025 3:34 PM [facility] CHLORIDE S/P/B 103 97 - 115 MMOL/L 08/15/2025 3:34 PM [facility] CO2 32.5(H) 21 - 32 MMOL/L 08/15/2025 3:34 PM [facility] CALCIUM S/P/B 8.2(L) 8.5 - 10.1 MG/DL 08/15/2025 3:34 PM [facility] ANION GAP 6.5 2 - 10 MMOL/L 08/15/2025 3:34 PM [facility] BUN CREATININE RATIO 15.7 6 - 26 08/15/2025 3:34 PM [facility] GFR ESTIMATE 19(L) >90 ML/MIN/1.7 3 M2 08/15/2025 3:34 PM [facility] Comment: NOTE: eGFR is not calculated for patients <18 years of age or gender unknown. This is an estimated GFR calculation using the new CKD EPI creatinine equation without race and so does not require a correction factor for race. This estimated GFR should not be used for calculating drug doses. 08/15/2025 2:45 PM [facility] us Tanesha DA SILVA LABORATORY Final Result [facility] [address] [place] [address], * (ABNORMAL) ALBUMIN URINE RANDOM W/CREATININE (08/15/2025 2:45 PM [facility]) CREATININE (U) 25.3(L) 39 - 259 MG/DL 08/15/2025 3:33 PM [facility] MICROALBUMIN (U) 28.0(H) <2.0 mg/dL 08/15/2025 3:33 PM [facility] ALBUMIN/CREAT RATIO 1,106.7(H ) <30 MG/G 08/15/2025 3:33 PM [facility] URINE URINE SPECIMEN OBTAINED BY CLEAN CATCH PROCEDURE / Unknown 08/15/2025 2:45 PM [facility]ER us Sarah Camacho MD URINE ORDERABLES Final Result [facility] [address] [place] [address], [place] [phone] * (ABNORMAL) CBC W/DIFF AUTOMATED (08/05/2025 5:23 AM CDT) Only the most recent of24 resultswithin the time period is included. WBC 2.41(L) 4.5 - 11.0 x10'3/uL 08/05/2025 6:30 AM CDT [facility] RBC 2.61(L) 4.70 - 6.10 x10'6/uL 08/05/2025 6:30 AM CDT [facility] HGB 8.3(L) 14.0 - 18.0 G/DL 08/05/2025 6:30 AM CDT [facility] HCT 26.2(L) 43.0 - 54.0 % 08/05/2025 6:30 AM CDT [facility] MCV 100.4(H) 80.0 - 94.0 FL 08/05/2025 6:30 AM CDT [facility] MCH 31.8(H) 27.0 - 31.0 PG 08/05/2025 6:30 AM CDT [facility] MCHC 31.7(L) 32.0 - 36.0 G/DL 08/05/2025 6:30 AM CDT [facility] RDW 19.1(H) 11.5 - 14.5 % 08/05/2025 6:30 AM CDT [facility] PLT 173 130 - 400 x10'3/uL 08/05/2025 6:30 AM CDT [facility] MPV 10.7 9.3 - 12.2 FL 08/05/2025 6:30 AM CDT [facility] DIFFERENTIAL TYPE AUTOMATED DIFFERENTIAL 08/05/2025 6:45 AM T [facility] NEUTROPHILS % 46.9 % 08/05/2025 6:45 AM T [facility] LYMPHOCYTES % 33.2 % 08/05/2025 6:45 AM T [facility] MONOCYTES % 7.5 % 08/05/2025 6:45 AM T [facility] EOSINOPHILS 10.8 % 08/05/2025 6:45 AM T [facility] BASOPHILS 1.2 % 08/05/2025 6:45 AM T [facility] IMMATURE GRANS % 0.4 % 08/05/20 6:45 AM T [facility] ABS. NEUTROPHILS 1.13(L) 1.80 - 7.70 x10'3/uL 08/05/2025 6:45 AM CDT [facility] ABS. LYMPHOCYTES 0.80(L) 1.00 - 4.80 x10'3/uL 08/05/2025 6:45 AM T [facility] ABS. MONOCYTES 0.18(L) 0.30 - 0.82 x10'3/uL 08/05/2025 6:45 AM CDT [facility] ABS. EOSINOPHILS 0.26 0.04 - 0.54 x10'3/uL 08/05/2025 6:45 AM CDT [facility] ABS. BASOPHILS 0.03 0.01 - 0.08 x10'3/uL 08/05/2025 6:45 AM CDT [facility] ABS. IMMATURE GRANULOCYTES 0.01 0.00 - 0.49 x10'3/uL 08/05/2025 6:45 AM CDT [facility] RBC MORPHOLOGY SLIDE REVIEWED 2024 6:45 AM CDT [facility] POLY 1+ 08/05/2025 6:45 AM CDT [facility] PLT EST. ADEQUATE 08/05/2025 6:45 AM CDT [facility] 08/05/2025 5:23 AM CDT Tia Johnson MD LABORATORY Final Resul t [facility] [address] [place] [address], [place] [phone] * MAGNESIUM (08/05/2025 5:23 AM CDT) Only the most recent of7 resultswithin the time period is included. MAGNESIUM 1.9 1.8 - 2.4 MG/DL 08/05/2025 6:56 AM CDT [facility] 08/05/2025 5:23 AM CDT Tia Johnson MD LABORATORY Final Resul t [facility] [address] [place] [address], [place] [phone] * (ABNORMAL) BASIC METABOLIC PANEL (08/04/2025 4:24 AM CDT) Only the most recent of22 resultswithin the time period is included. [facility] GLUCOSE 171(H) 70 - 99 MG/DL 08/04/2025 5:06 AM CDT [facility] BUN 43(H) 7 - 18 MG/DL 08/04/2025 5:06 AM T [facility] CREATININE S/P/B 3.43(H) 0.7 - 1.3 MG/DL 08/04/2025 5:06 AM T [facility] SODIUM S/P/B 138 136 - 145 MMOL/L 08/04/2025 5:06 AM T [facility] POTASSIUM S/P/B 4.3 3.5 - 5.1 MMOL/L 08/04/2025 5:06 AM T [facility] CHLORIDE S/P/B 99 97 - 115 MMOL/L 08/04/2025 5:06 AM T [facility] CO2 36.0(H) 21 - 32 MMOL/L 08/04/2025 5:06 AM T [facility] CALCIUM S/P/B 8.7 8.5 - 10.1 MG/DL 08/04/2025 5:06 AM T [facility] ANION GAP 3.0 2 - 10 MMOL/L 08/04/2025 5:06 AM T [facility] BUN CREATININE RATIO 12.5 6 - 26 08/04/2025 5:06 AM T [facility] GFR ESTIMATE 18(L) >90 ML/MIN/1.7 3 M2 08/04/2025 5:06 AM T [facility] Comment: NOTE: eGFR is not calculated for patients <18 years of age or gender unknown. This is an estimated GFR calculation using the new CKD EPI creatinine equation without race and so does not require a correction factor for race. This estimated GFR should not be used for calculating drug doses. 08/04/2025 4:24 AM CDT Tia Johnson MD LABORATORY Final Resul t [facility] [address] [place] [address], * (ABNORMAL) CULTURE LOWER RESPIRATORY W/GRAM STAIN (08/03/2025 3:30 PM CDT) SPEC DESCRIPTION SPUTUM, EXPECTORATED 08/03/2025 3:34 PM CDT [facility] SPECIAL REQUESTS NO SPECIAL REQUEST 08/03/2025 3:34 PM CDT [facility] GRAM STAIN RESULT MODERATE EPITHELIAL CELLS SEEN 08/03/2025 9:10 PM CDT [facility] GRAM STAIN RESULT FEW WHITE BLOOD CELLS SEEN 08/03/2025 9:10 PM CDT [facility] GRAM STAIN RESULT MODERATE MIXED BACTERIAL CHRISTIE 08/03/2025 9:10 PM CDT [facility] CULTURE RESULT LIGHT GROWTH OF SERRATIA MARCESCENS NOTE: ORGANISM MAY DEVELOP RESISTANCE AFTER 3 TO 4 DAYS OF THERAPY WITH THIRD GENERATION CEPHALOSPORINS. TESTING OF REPEAT ISOLATES MAY BE WARRANTED. (A) 08/06/2025 10:48 AM CDT [facility] CULTURE RESULT SPARSE GROWTH OF NORMAL CHRISTIE PRESENT 08/06/2025 10:48 AM CDT [facility] SPUTUM SPECIMEN / Unknown 08/03/2025 3:30 PM CDT 08/03/2025 3:35 PM CDT Narrative Organism Antibiotic Method Susceptibility Serratia marcescens CEFTRIAXONE LOLA (VITEK) <=1: Sensitive Serratia marcescens CEFTAZIDIME LOLA (VITEK) <=1: Sensitive Serratia marcescens CEFAZOLIN LOLA (VITEK) >=64: Resistant Serratia marcescens GENTAMICIN LOLA (VITEK) <=1: Sensitive Serratia marcescens LEVOFLOXACIN LOLA (VITEK) <=0.12: Sensitive Serratia marcescens TRIMETH-SULFAMETH. LOLA (VITEK) <=20: Sensitive Serratia marcescens PIPERACILLIN/TAZOBACTAM LOLA (VITEK ) Sensitive Kiesha Wilkinson NP MICROBIOLOGY - GENE RAL ORDERABLES Final Result [facility] [address] [place] [address], [place] [phone] * USE ECHO LTD (08/03/2025 11:41 AM CDT) Anatomical Region Laterality Modality Cardiac Echocardiogram 08/03/2025 11:1 5 AM CDT Narrative 08/04/2025 8:51 AM CDT [facility] Echo w/ Cardiac Doppler comp Pat.Name: CARLOS MAHAJAN Pat.ID: [id number] .Date: 08/03/2025 Refer.MD: [id number] ELIZABETH Dupree EWDPROV EWDPROV Exam Time: 11:15:00 AM Study Type:Echo w/ Cardiac Doppler comp Height: 70 in Weight: 207 lb BSA: 2.12 m2 Age: 11 1950,74Y Sex: M BP: 129/54 HR: 49 bpm Sonogrphr: Radha Celestin [facility] Pat. Stat.:Inpatient Room: [facility] Reason for Study:S/P TAVR Procedures: 2D, Doppler, Color Flow, The study quality is technically fair. Race: W ++++++++++++++++++++++++++++++++++++ SUMMARY: ++++++++++++++++++++++++++++++++++++ The left ventricular size is normal. The left ventricular systolic function is lower limits of normal. Estimated left ventricular ejection fraction is 50-55%. Aortic valve prosthesis visualized. No evidence of jose luis-prosthetic aortic valve regurgitation. No evidence of central prosthetic aortic valve regurgitation. A TAVR valve is in the aortic position with post-deployment peak velocity of 1.87m/sec, mean gradient of 8mmHg and a calculated MEGHNA of 1.48cm2. ++++++++++++++++++++++++++++++++++++ FINDINGS: ++++++++++++++++++++++++++++++++++++ LV: The left ventricular size is normal. The left ventricular systolic function is lower limits of normal. Estimated left ventricular ejection fraction is 50-55%. Mild concentric left ventricular hypertrophy. WM: Wall motion appears normal in all segments. JOSE LUIS: No evidence of pericardial effusion. AO: Normal aortic root. AV: Aortic valve prosthesis visualized. No evidence of jose luis-prosthetic aortic valve regurgitation. No evidence of central prosthetic aortic valve regurgitation. No evidence of prosthetic aortic valve stenosis. A TAVR valve is in the aortic position with post-deployment peak velocity of 1.87m/sec, mean gradient of 8mmHg and a calculated MEGHNA of 1.48cm2. MV: Mild mitral regurgitation. No evidence of mitral valve stenosis. PV: No evidence of pulmonic valve stenosis. A trace of pulmonic regurgitation. TV: Mild tricuspid regurgitation. No evidence of tricuspid valve stenosis. ++++++++++++++++++++++++++++++++++++ MEASUREMENTS: ++++++++++++++++++++++++++++++++++++ 2D Left Ventricle LVIDd 5.3 cm (3.6-5.2)* LV ESV 51.2 ml LVIDs 3.9 cm (2.3-3.9) LV ESV 81.2 ml LngAxd 8.92 cm LVESV BP 68.7 ml LngAxd 10 cm LV EF 51.1 % LV EDV 105 ml LV EF 54.4 % LV EDV 178 ml LV EF BP 52.6 % LVEDV BP 145 ml LV SV 53.7 ml LngAxs 8.18 cm LV SV 96.8 ml LngAxs 9.33 cm LV SV BP 76.3 ml LVPW LVPWd 1.1 cm Right Ventricle RVIDd 4.8 cm (2.6-4.3)* Right and Left 0.906 Ventricular Septum IVSd 1.1 cm Aorta Ao Rtd 3.1 cm LVOT LVOT 2 cm LVOTArea 3.14 cm2 Ratios IVS DOPPLER LVOT LVOTpkPG 3 mmHg LVOTmnPG 2 mmHg LVOTpkVel 90.1 cm/s (70-110)+ LVOT SV 55 ml LVOT TVI 17.6 cm AV Forward Flow AV TVI 35.7 cm AV pkPG 13 mmHg AV pkVel 179 cm/s (100-170)+* Area (TVI) 1.55 cm2 (3-5)* AV mnPG 7 mmHg Area (Willian) 1.58 cm2 (3-5)* PV Forward Flow PV pkVel 141 cm/s (60-90)* PV pkPG 8 mmHg PV Regurg Flow PV pkVel 80.2 cm/s TV Regurg Flow TV pkPG 42 mmHg TV pkVel 324 cm/s (30-70)* Aortic Valve Aortic Valve Ar 0.73 Aortic Valve Ve 0.5 AV DI Value 0.49 PV Regurgitant Flow Peak Gradient ( 3 mmHg <Electronic Signature> 08/04/2025 08:51 AM Tia Johnson M.D. Procedure Note Tia Johnson MD - 08/04/2025 [facility] Echo w/ Cardiac Doppler comp Pat.Name: CARLOS MAHAJAN Pat.ID: [id number] .Date: 08/03/2025 Refer.: [id number] ELIZABETH Dupree EWDPROV EWDPROV Exam Time: 11:15:00 AM Study Type:Echo w/ Cardiac Doppler comp Height: 70 in Weight: 207 lb BSA: 2.12 m2 Age: 11 1950,74Y Sex: M BP: 129/54 HR: 49 bpm Sonogrphr: Radha Celestin [facility] Pat. Stat.:Inpatient Room: [facility] Reason for Study:S/P TAVR Procedures: 2D, Doppler, Color Flow, The study quality is technically fair. Race: W ++++++++++++++++++++++++++++++++++++ SUMMARY: ++++++++++++++++++++++++++++++++++++ The left ventricular size is normal. The left ventricular systolic function is lower limits of normal. Estimated left ventricular ejection fraction is 50-55%. Aortic valve prosthesis visualized. No evidence of jose luis-prosthetic aortic valve regurgitation. No evidence of central prosthetic aortic valve regurgitation. A TAVR valve is in the aortic position with post-deployment peak velocity of 1.87m/sec, mean gradient of 8mmHg and a calculated MEGHNA of 1.48cm2. ++++++++++++++++++++++++++++++++++++ FINDINGS: ++++++++++++++++++++++++++++++++++++ LV: The left ventricular size is normal. The left ventricular systolic function is lower limits of normal. Estimated left ventricular ejection fraction is 50-55%. Mild concentric left ventricular hypertrophy. WM: Wall motion appears normal in all segments. JOSE LUIS: No evidence of pericardial effusion. AO: Normal aortic root. AV: Aortic valve prosthesis visualized. No evidence of jose luis-prosthetic aortic valve regurgitation. No evidence of central prosthetic aortic valve regurgitation. No evidence of prosthetic aortic valve stenosis. A TAVR valve is in the aortic position with post-deployment peak velocity of 1.87m/sec, mean gradient of 8mmHg and a calculated MEGHNA of 1.48cm2. MV: Mild mitral regurgitation. No evidence of mitral valve stenosis. PV: No evidence of pulmonic valve stenosis. A trace of pulmonic regurgitation. TV: Mild tricuspid regurgitation. No evidence of tricuspid valve stenosis. ++++++++++++++++++++++++++++++++++++ MEASUREMENTS: ++++++++++++++++++++++++++++++++++++ 2D Left Ventricle LVIDd 5.3 cm (3.6-5.2)* LV ESV 51.2 ml LVIDs 3.9 cm (2.3-3.9) LV ESV 81.2 ml LngAxd 8.92 cm LVESV BP 68.7 ml LngAxd 10 cm LV EF 51.1 % LV EDV 105 ml LV EF 54.4 % LV EDV 178 ml LV EF BP 52.6 % LVEDV BP 145 ml LV SV 53.7 ml LngAxs 8.18 cm LV SV 96.8 ml LngAxs 9.33 cm LV SV BP 76.3 ml LVPW LVPWd 1.1 cm Right Ventricle RVIDd 4.8 cm (2.6-4.3)* Right and Left 0.906 Ventricular Septum IVSd 1.1 cm Aorta Ao Rtd 3.1 cm LVOT LVOT 2 cm LVOTArea 3.14 cm2 Ratios IVS DOPPLER LVOT LVOTpkPG 3 mmHg LVOTmnPG 2 mmHg LVOTpkVel 90.1 cm/s (70-110)+ LVOT SV 55 ml LVOT TVI 17.6 cm AV Forward Flow AV TVI 35.7 cm AV pkPG 13 mmHg AV pkVel 179 cm/s (100-170)+* Area (TVI) 1.55 cm2 (3-5)* AV mnPG 7 mmHg Area (Willian) 1.58 cm2 (3-5)* PV Forward Flow PV pkVel 141 cm/s (60-90)* PV pkPG 8 mmHg PV Regurg Flow PV pkVel 80.2 cm/s TV Regurg Flow TV pkPG 42 mmHg TV pkVel 324 cm/s (30-70)* Aortic Valve Aortic Valve Ar 0.73 Aortic Valve Ve 0.5 AV DI Value 0.49 PV Regurgitant Flow Peak Gradient ( 3 mmHg <Electronic Signature> 08/04/2025 08:51 AM Tia Johnson M.D. Tia Johnson MD ECHO Final Resul t * ECG 12 lead (08/03/2025 8:00 AM CDT) Only the most recent of10 resultswithin the time period is included. 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1950 Requested By: TIA JOHNSON Order Number: [id number] Reading MD: Maldonado Allen Measurements Intervals Margie Rate: 84 P: 0 NV: 0 QRS: -46 QRSD: 194 T: 115 QT: 490 QTc: 579 Interpretive Statements Atrial fibrillation LEFT AXIS DEVIATION [QRS AXIS < -30] LEFT BUNDLE BRANCH BLOCK [120+ ms QRS DURATION, 80+ ms Q/S IN V1/V2, 85+ ms R IN I/aVL/V5/V6] Compared to ECG 08/03/2025 07:41:20 Ventricular premature complex(es)/aberrant conduction of supraventricular beat(s) no longer present Procedure Note Maldonado Allen MD - 08/03/2025 [place] [address] [place] [address] Test Date: 2025-08-03 Pat Name: [facility] Department: 40 Room: B443 Gender: Male 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1950 Requested By: TIA JOHNSON Order Number: [id number] Reading MD: Maldonado Allen Measurements Intervals Margie Rate: 84 P: 0 NV: 0 QRS: -46 QRSD: 194 T: 115 QT: 490 QTc: 579 Interpretive Statements Atrial fibrillation LEFT AXIS DEVIATION [QRS AXIS < -30] LEFT BUNDLE BRANCH BLOCK [120+ ms QRS DURATION, 80+ ms Q/S IN V1/V2, 85+ms R IN I/aVL/V5/V6] Compared to ECG 08/03/2025 07:41:20 Ventricular premature complex(es)/aberrant conduction ofsupraventricular beat(s) no longer present Tia Johnson MD ECG ORDERABLES Final Resul t Performing Organization Address City/[facility]/ZIP Co de Phone Number [facility] * (ABNORMAL) POCT glucose (08/03/2025 6:27 AM CDT) Only the most recent of79 resultswithin the time period is included. GLUCOSE POC 127(H) 70 - 99 mg/dL 08/03/2025 6:33 AM CDT [facility] 08/03/2025 6:27 AM CDT Tia Johnson MD POCT ORDERABLES - DEVICE Fi nal Result Performing Organization Address City/[facility] Co de Phone Number [facility] [address] [place] [address], [place] [phone] * XR CHEST PORTABLE (08/03/2025 4:47 AM CDT) Only the most recent of7 resultswithin the time period is included. Anatomical Region Laterality Modality Chest Radiographic Ivone ging 08/03/2025 4:52 AM CDT Impressions 08/03/2025 4:54 AM CDT IMPRESSION: 1. Significant interval improvement in the right upper lobe opacity suggestive of resolving atelectasis. 2. Persistent right greater than left pleural effusions with findings suggestive of improving pulmonary edema. Referred By: TIA JOHNSON Interpreted By: Onur Waldrop MD, 08/03/2025 4:52 AM Narrative 08/03/2025 4:54 AM CDT [place] [address] Examination: XR CHEST PORTABLE Exam time: 08/03/2025 4:24 AM Indication: Postop replacement. Comparison: 08/02/2025 Technique: Portable AP view of the chest, 2 images. Findings: Aortic valve prosthesis appears stable. Stable prominence of the cardiomediastinal silhouette. Significant interval improvement in the right upper lobe opacity suggestive of resolving atelectasis. Persistent right greater than left pleural effusions with findings suggestive of improving pulmonary edema. No pneumothorax. Procedure Note Onur Waldrop MD - 08/03/2025 [place] [address] Examination: XR CHEST PORTABLE Exam time: 08/03/2025 4:24 AM Indication: Postop replacement. Comparison: 08/02/2025 Technique: Portable AP view of the chest, 2 images. Findings: Aortic valve prosthesis appears stable. Stable prominence ofthe cardiomediastinal silhouette. Significant interval improvement in theright upper lobe opacity suggestive of resolving atelectasis. Persistentright greater than left pleural effusions with findings suggestive ofimproving pulmonary edema. No pneumothorax. IMPRESSION: 1. Significant interval improvement in the right upper lobe opacitysuggestive of resolving atelectasis. 2. Persistent right greater than left pleural effusions with findingssuggestive of improving pulmonary edema. Referred By: TIA JOHNSON Interpreted By: Onur Waldrop MD, 08/03/2025 4:52 AM Tia Johnson MD GENERAL IMAGING Final Resul t * (ABNORMAL) ARTERIAL BLOOD GAS (08/02/2025 1:20 PM CDT) Only the most recent of8 resultswithin the time period is included. PH ARTERIAL 7.33(L) 7.35 - 7.45 08/02/2025 1:35 PM CDT [facility] PCO2 53.0(H) 35.0 - 45.0 MMHG 08/02/2025 1:35 PM CDT [facility] PO2 184.0(H) 83.0 - 108.0 MMHG 08/02/2025 1:35 PM CDT [facility] TOTAL CO2 ARTERIAL 29.5(H) 19.0 - 24.0 MMOL/L 08/02/2025 1:35 PM CDT [facility] BASE EXCESS 1.0 0.0 - 3.0 MMOL/L 08/02/2025 1:35 PM CDT [facility] O2 SATURATION 100(H) 94.0 - 98.0 % 08/02/2025 1:35 PM CDT [facility] BICARB ARTERIAL 27.9 21.0 - 28.0 MMOL/L 08/02/2025 1:35 PM CDT [facility] O2 ADMIN ARTERIAL 50 08/02/2025 1:32 PM CDT [facility] DRAW SITE ARTERIAL ARTERIAL LINE DRAW 08/02/2025 1:32 PM CDT [facility] 08/02/2025 1:20 PM CDT us Kiesha Wilkinson NP LABORATORY Fin al Result [facility] [address] [place] [address], [place] [phone] * USE ECHO [facility] (08/02/2025 10:25 AM CDT) Anatomical Region Laterality Modality Cardiac Echocardiogram 08/02/2025 9:48 AM CDT Narrative 08/04/2025 8:39 AM CDT Echocardiography Report Pat.Name: CARLOS MAHAJAN Pat.ID: [id number] .Date: 08/02/2025 : [id number] ELIZABETH WEBER Y EWDPROV EWDPROV Exam Time: 9:48:00 AM Study Type:ECHO WITH CARDIAC DOPPLER COMP Height: 70 in Weight: 206 lb BSA: 2.11 m2 Age: 11 1950,74Y Sex: M BP: 167/66 HR: 80 bpm Sonogrphr: Cynthia Wills RD, [facility] Pat. Stat.:Outpatient Reason for Study:Aortic stenosis, TAVR Procedures: 2D, Doppler, Color Flow, Portable, The study quality is technically adequate. Limited Race: W ++++++++++++++++++++++++++++++++++++ SUMMARY: ++++++++++++++++++++++++++++++++++++ The left ventricular systolic function is normal. Aortic valve prosthesis visualized. No evidence of jose luis-prosthetic aortic valve regurgitation. No evidence of central prosthetic aortic valve regurgitation. A TAVR valve is in the aortic position with post-deployment peak velocity of 1.40m/sec, mean gradient of 4mmHg and a calculated MEGHNA of cm2. ++++++++++++++++++++++++++++++++++++ FINDINGS: ++++++++++++++++++++++++++++++++++++ LV: The left ventricular systolic function is normal. RV: A pacemaker wire is visualized in the right ventricle. RA: A pacemaker wire is visualized in the right atrium. JOSE LUIS: No evidence of pericardial effusion. AV: Aortic valve prosthesis visualized. No evidence of jose luis-prosthetic aortic valve regurgitation. No evidence of central prosthetic aortic valve regurgitation. A TAVR valve is in the aortic position with post-deployment peak velocity of 1.40m/sec, mean gradient of 4mmHg and a calculated MEGHNA of cm2. ++++++++++++++++++++++++++++++++++++ MEASUREMENTS: ++++++++++++++++++++++++++++++++++++ DOPPLER LVOT LVOTpkPG 3 mmHg LVOT TVI 16.6 cm LVOTpkVel 80.7 cm/s (70-110) LVOTmnPG 1 mmHg AV Forward Flow AV TVI 26.6 cm AV mnPG 4 mmHg AV pkVel 139 cm/s (100-170)+ AV pkPG 8 mmHg Aortic Valve Aortic Valve Ve 0.58 AV DI Value 0.62 <Electronic Signature> 08/04/2025 08:39 AM Tia Johnson M.D. Procedure Note Tia Johnson MD - 08/04/2025 Echocardiography Report Pat.Name: CARLOS MAHAJAN Pat.ID: [id number] .Date: 08/02/2025 Refer.MD: [id number] ELIZABETH Dupree EWDPROV EWDPROV Exam Time: 9:48:00 AM Study Type:ECHO WITH CARDIAC DOPPLER COMP Height: 70 in Weight: 206 lb BSA: 2.11 m2 Age: 11 1950,74Y Sex: M BP: 167/66 HR: 80 bpm Sonogrphr: Cynthia Wills [facility], [facility] Pat. Stat.:Outpatient Reason for Study:Aortic stenosis, TAVR Procedures: 2D, Doppler, Color Flow, Portable, The study quality is technically adequate. Limited Race: W ++++++++++++++++++++++++++++++++++++ SUMMARY: ++++++++++++++++++++++++++++++++++++ The left ventricular systolic function is normal. Aortic valve prosthesis visualized. No evidence of jose luis-prosthetic aortic valve regurgitation. No evidence of central prosthetic aortic valve regurgitation. A TAVR valve is in the aortic position with post-deployment peak velocity of 1.40m/sec, mean gradient of 4mmHg and a calculated MEGHNA of cm2. ++++++++++++++++++++++++++++++++++++ FINDINGS: ++++++++++++++++++++++++++++++++++++ LV: The left ventricular systolic function is normal. RV: A pacemaker wire is visualized in the right ventricle. RA: A pacemaker wire is visualized in the right atrium. JOSE LUIS: No evidence of pericardial effusion. AV: Aortic valve prosthesis visualized. No evidence of jose luis-prosthetic aortic valve regurgitation. No evidence of central prosthetic aortic valve regurgitation. A TAVR valve is in the aortic position with post-deployment peak velocity of 1.40m/sec, mean gradient of 4mmHg and a calculated MEGHNA of cm2. ++++++++++++++++++++++++++++++++++++ MEASUREMENTS: ++++++++++++++++++++++++++++++++++++ DOPPLER LVOT LVOTpkPG 3 mmHg LVOT TVI 16.6 cm LVOTpkVel 80.7 cm/s (70-110) LVOTmnPG 1 mmHg AV Forward Flow AV TVI 26.6 cm AV mnPG 4 mmHg AV pkVel 139 cm/s (100-170)+ AV pkPG 8 mmHg Aortic Valve Aortic Valve Ve 0.58 AV DI Value 0.62 <Electronic Signature> 08/04/2025 08:39 AM Tia Johnson M.D. us Tia Johnson MD ECHO Final Resul t * (ABNORMAL) PROCALCITONIN (PCT) (08/02/2025 10:20 AM CDT) Only the most recent of2 resultswithin the time period is included. PROCALCITONIN 1.09(H) 0.00 - 0.49 NG/ML 08/02/2025 2:51 PM CDT [facility] 08/02/2025 10:2 0 AM CDT Kiesha Wilkinson [facility] Fin al Result [facility] [address] [place] [address], * XA TAVR (08/02/2025 10:19 AM CDT) Anatomical Region Laterality Modality Ladle Liner Narrative 08/09/2025 2:42 PM PRECISION HONER Table formatting from the original result was not included. [facility] CARDIAC CATHETERIZATION/EP LAB [phone] Transcatheter Aortic Valve Replacement Patient's Name: Carlos Mahajan Date of : 1950 Medical Record: #[id number] Account: #[id number] Physician: Tia Johnson MD Date: 08/02/2025 Procedure: #[id number] / #[id number] TRANSCATHETER AORTIC VALVE REPLACEMENT Electrical Unit Rebuilder: 1. Tia Johnson M.D. 2. Alli Melendrez M.D. Procedures: Temporary Pacemaker Placement Left heart catheterization Aortic Root Aortography Aortoiliac Angiography Transcatheter aortic valve replacement Valve: Medtronic Evolut Pro FX+ #34 mm History: Carlos Mahajan is a 74-year-old male with past medical history significant for severe aortic stenosis who presents with dyspnea. He is considered high for surgical aortic valve replacement. He is referred for transcatheter aortic valve replacement with a Medtronic Evolut Pro FX+ #34 mm. Procedural details The patient was identified by the physician, nursing and technical staff. The procedure's purpose, conduct, potential outcomes and possible complications were explained to the patient and written informed consent was obtained. The patient was placed on the procedure table. Appropriate ECG, blood pressure and pulse oximetry monitoring were established. Anesthesia identified the patient. The patient was prepped and draped for the procedure utilizing sterile technique. The patient was placed under monitored anesthesia care. A transthoracic echocardiogram was performed prior to the start of the procedure. Percutaneous 7-Somali left femoral and 7-Somali left femoral venous accesses were obtained using ultrasound guidance. Ultrasound was used to visualize vessel patency and to needle entry into the lumen of the vessel. A temporary pacemaker was advanced into the right ventricle and reliable ventricular capture was verified. A 6-Somali pigtail catheter was then placed and aortography was performed. We then proceeded with contralateral femoral arterial access in the right common femoral artery. Two Perclose devices were placed using a Preclose technique and an 8-Somali sheath was placed in the right common femoral artery as a place ruiz. We then proceeded with transcatheter aortic valve replacement. The 8-Somali sheath in the left common femoral artery was removed and the 18 Fr. Medtronic Sentrant sheath was advanced into the aorta. An AL1 catheter was advanced into the sheath and using a straight wire was used to cross the [place] aortic valve. The AL1 catheter was then exchanged for a 5-Somali pigtail catheter, which was advanced into the left ventricular apex, left ventricular and aortic valve gradients were measured. A 0.035 Medtronic Confida wire was then advanced into the left ventricle. The 18 Fr. sheath in the right common femoral artery was removed and the 18 Fr. Medtronic in-line sheath was advanced into the aorta. The Medtronic Evolut Pro FX+ #34 mm transcatheter valve was inserted into the groin sheath and positioned across the aortic valve. Under ventricular pacing, the Medtronic Evolut Pro FX+ #34 mm valve was deployed successfully. Transthoracic echocardiography after valve deployment showed a successful result with mild paravalvular regurgitation. The valve delivery sheath was exchanged for a 14-Somali Cook sheath. The sheath was then removed and the previously placed Perclose sutures were deployed. External pressure was applied to the entry site for 15 minutes to help achieve hemostasis. Peripheral angiography after the Perclose devices were deployed showed adequate hemostasis with no evidence of perforation or dissection. The contralateral left femoral arterial sheath was closed using a Perclose vascular closure device. The venous sheath was removed and a Vascade vascular closure device was placed. The patient was transferred to the post anesthesia care unit in stable condition. Hence, the procedure was completed. Heparin was used for anticoagulation during the procedure. Echocardiogram per report. EBL less than 50 cc. Conclusion: Successful transcatheter aortic valve replacement with Medtronic Evolut Pro FX+ #34 mm. Tia Johnson MD [facility] Interpreted: 08/02/25 @ 10:33 Transcribed: 08/08/25 Tia Johnson MD DIRECTOR RECORDS MANAGEMENT Final Resul t * (ABNORMAL) CG8 Plus-ISTAT (08/02/2025 10:12 AM CDT) Only the most recent of3 resultswithin the time period is included. [facility] TECH CODE 613,199 08/03/2025 7:40 AM CDT [facility] PH ARTERIAL 7.11(LL) 7.35 - 7.45 08/03/2025 7:40 AM CDT [facility] Comment:POINT OF CARE TESTIN G, CRITICAL RESULT GIVEN TO LENS FINISHER. PCO2 88.7(H) 35.0 - 45.0 MM HG 08/03/2025 7:40 AM CDT [facility] PO2 95 80.0 - 100.0 MM HG 08/03/2025 7:40 AM CDT [facility] BASE DEFICIT 1.0 MEQ/L 08/03/2025 7:40 AM CDT [facility] BICARB ARTERIAL 28.2(H) 22.0 - 26.0 MEQ/L 08/03/2025 7:40 AM CDT [facility] TOTAL CO2 ARTERIAL 31 MEQ/L 08/03/2025 7:40 AM CDT [facility] O2 Saturation 93.0 90.0 - 100.0 % 08/03/2025 7:40 AM CDT [facility] SODIUM BLOOD GAS 141 135.0 - 145.0 MMOL/L 08/03/2025 7:40 AM CDT [facility] POTASSIUM BLOOD GAS 4.6(H) 3.5 - 4.5 MMOL/L 08/03/2025 7:40 AM CDT [facility] CALCIUM BLOOD GAS 1.2 1.1 - 1.3 MMOL/L 08/03/2025 7:40 AM CDT [facility] GLUCOSE POC 149(H) 70 - 110 MG/DL 08/03/2025 7:40 AM CDT [facility] HEMATOCRIT BLOOD GAS 26.0(L) 43.0 - 54.0 % 08/03/2025 7:40 AM CDT [facility] HEMOGLOBIN BLOOD GAS 8.8(L) 14.0 - 18.0 G/DL 08/03/2025 7:40 AM CDT [facility] 08/02/2025 10:1 2 AM CDT Tia Johnson MD POINT OF CARE TEST ORDERABL ES Final Result Performing Organization Address City/[facility] de Phone Number [facility] [address] [place] [address], [place] [phone] * (ABNORMAL) POCT ACTIVATED CLOTTING TIME - ISTAT DOCKED DEVICE (08/02/2025 9:43 AM CDT) Only the most recent of2 resultswithin the time period is included. ACTIVATED CLOTTING TIME (ACT) 219(H) 74 - 125 SEC 08/03/2025 7:40 AM CDT [facility] AWNING SPREADER CODE 613,199 08/03/2025 7:40 AM CDT [facility] 08/02/2025 9:43 AM CDT us Tia Johnson MD POCT ORDERABLES - DEVICE Fi nal Result [facility] [address] [place] [address], [place] [phone] * Art Line (08/02/2025 8:35 AM CDT) Narrative Christal Obrien MD - 08/02/2025 8:35 AM CDT Christal Almanzar MD 08/03/2025 1:03 AM Art Line Date/Time: 08/02/2025 8:35 AM Performed by: Christal Almanzar MD Authorized by: Christal Almanzar MD Patient Location: OR Placed Outside of This Facility?: No Size: 20 Orientation: Left Location: Radial Site Prep: Chlorhexadine Insertion Attempts: 1 Ultrasound-guided Placement: Yes Ultrasound was used to identify the vessel. It was assessed and patent. Ultrasound was used to visualized vascular needle entry into the vessel and The selected vessel appeared anatomically normal and there were no apparent abnormal findings Secure Method: Taped Patient Tolerance: Tolerated well Consent obtained pre-operatively for arterial line placement in operating room prior to surgery. Radial pulse palpated on left wrist. Area prepped with Chlor-Prep. 20G Arrow catheter placed in left radial artery x 1 attempts. Secured with tegaderm. Wrist rest applied. No immediate complications. Christal Almanzar MD [place] ANESTHESIA Final Result * (ABNORMAL) PRO BNP ([facility]) (08/02/2025 6:27 AM CDT) Only the most recent of3 resultswithin the time period is included. PRO-B TYPE NATRIURETIC PEPTIDE 14,785(H) <125 PG/ML 08/02/2025 7:45 AM CDT [facility] Comment: CUT POINTS ESTABLISHED BY [employer]NATIONAL [employer] ON NT PROBNP (ICON) STUDY (2006). AGE INDEPENDENT: <300 PG/ML HAS A 99% NEGATIVE PREDICTIVE VALUE FOR EXCLUDING ACUTE CHF <50 YEARS: >450 PG/ML IS CONSISTENT WITH ACUTE CHF 50-75 YEARS: >900 PG/ML IS CONSISTENT WITH ACUTE CHF >75 YEARS: >1800 PG/ML IS CONSISTENT WITH ACUTE CHF IN PATIENTS WITH RENAL INSUFFICIENCY (GFR <60), >1200 PG/ML YIELDS A DIAGNOSTIC SENSITIVITY AND SPECIFICITY OF 89% AND 72% FOR ACUTE CHF. 08/02/2025 6:27 AM CDT Tia Johnson MD LABORATORY Final Resul t [facility] [address] [place] [address], * XR CHEST PA+LAT (07/29/2025 3:48 PM CDT) Anatomical Region Laterality Modality Chest Radiographic Ivone ging 07/29/2025 4:55 PM CDT Impressions 07/29/2025 4:57 PM CDT IMPRESSION: No acute pulmonary finding. Slight interval improvement in aeration at the right lung base with residual small pleural effusion and compressive atelectasis. Ordered By: TIA JOHNSON Interpreted By: Lang Joseph MD, 07/29/2025 4:55 PM Narrative 07/29/2025 4:57 PM [address]T [address] [address] EXAMINATION: XR CHEST PA+LAT DATE: 07/29/2025 3:36 PM HISTORY: 74-year-old male with preoperative evaluation for TAVR. History of hypertension, coronary artery disease, and COPD. COMPARISON: Chest radiography 07/13/2025. TECHNIQUE: Upright PA and lateral views of the chest. FINDINGS: Right basilar opacity related to small pleural effusion with compressive atelectasis, slightly improved. Interval resolution of left basilar opacity. No pneumothorax is identified. Mild prominence of the central pulmonary vasculature with cephalization noted. Cardiac silhouette is similar in prominence. Procedure Note Lang Joseph MD - 07/29/[address] [address] EXAMINATION: XR CHEST PA+LAT DATE: 07/29/2025 3:36 PM HISTORY: 74-year-old male with preoperative evaluation for TAVR. Historyof hypertension, coronary artery disease, and COPD. COMPARISON: Chest radiography 07/13/2025. TECHNIQUE: Upright PA and lateral views of the chest. FINDINGS: Right basilar opacity related to small pleural effusion with compressiveatelectasis, slightly improved. Interval resolution of left basilaropacity. No pneumothorax is identified. Mild prominence of the centralpulmonary vasculature with cephalization noted. Cardiac silhouette issimilar in prominence. IMPRESSION: No acute pulmonary finding. Slight interval improvement in aeration at theright lung base with residual small pleural effusion and compressiveatelectasis. Ordered By: TIA JOHNSON Interpreted By: Lang Joseph MD, 07/29/2025 4:55 PM Tia Johnson MD GENERAL IMAGING Final Resul t * TYPE & SCREEN - Verify expiration date is current (07/29/2025 3:05 PM CDT) Only the most recent of4 resultswithin the time period is included. UNITS ORDERED 4 08/02/2025 7:43 AM CDT [facility] ABO/RH O POSITIVE 07/29/2025 4:42 PM CDT [facility] ANTIBODY SCREEN NEGATIVE 4:42 PM CDT [facility] SAMPLE EXPIRATION 08/05/2025,23 59 08/02/2025 7:43 AM CDT [facility] BB COMMENT NO HISTORY OF TRANSFUSIONS, OR ANTIBODIES, NEW SPECIMEN NOT NEEDED 08/02/2025 7:43 AM CDT [facility] BLOOD UNIT NUMBER [id number] 08/02/2025 7:46 AM CDT [facility] PRODUCT: PC LOW VOL LEUKOPOOR 08/02/2025 7:46 AM CDT [facility] UNIT DIVISION 00 08/02/2025 7:46 AM CDT [facility] BLOOD UNIT STATUS UNIT RELEASED 08/02/2025 10:55 AM CDT [facility] TRANSFUSION STATUS OK TO TRANSFUSE 08/02/2025 7:46 AM CDT [facility] CROSSMATCH COMPATIBLE-EX M 08/02/2025 7:46 AM CDT [facility] BLOOD UNIT NUMBER [id number] 08/02/2025 7:46 AM CDT [facility] PRODUCT: PC LEUKO PHERE BAG1 08/02/2025 7:46 AM CDT [facility] UNIT DIVISION 00 08/02/2025 7:46 AM CDT [facility] BLOOD UNIT STATUS UNIT RELEASED 08/02/2025 10:59 AM CDT [facility] TRANSFUSION STATUS OK TO TRANSFUSE 08/02/2025 7:46 AM CDT [facility] CROSSMATCH COMPATIBLE-EX M 08/02/2025 7:46 AM CDT [facility] BLOOD UNIT NUMBER [id number] 08/02/2025 7:46 AM CDT [facility] PRODUCT: PC LEUKO PHERE BAG1 08/02/2025 7:46 AM CDT [facility] UNIT DIVISION 00 08/02/2025 7:46 AM CDT [facility] BLOOD UNIT STATUS UNIT RELEASED 08/02/2025 10:58 AM CDT [facility] TRANSFUSION STATUS OK TO TRANSFUSE 08/02/2025 7:46 AM CDT [facility] CROSSMATCH COMPATIBLE-EX M 08/02/2025 7:46 AM CDT [facility] BLOOD UNIT NUMBER [id number] 08/02/2025 7:46 AM CDT [facility] PRODUCT: PC LEUKOPOOR 08/02/2025 7:46 AM CDT [facility] UNIT DIVISION 00 08/02/2025 7:46 AM CDT [facility] BLOOD UNIT STATUS UNIT RELEASED 08/02/2025 10:56 AM CDT [facility] TRANSFUSION STATUS OK TO TRANSFUSE 08/02/2025 7:46 AM CDT [facility] CROSSMATCH COMPATIBLE-EX M 08/02/2025 7:46 AM CDT [facility] 07/29/2025 3:05 PM CDT Tia Johnson MD BLOOD BANK TEST ORDERABLES Final Result Performing Organization Address [facility] Co de Phone Number [facility] [address] [place] [address], [place] [phone] * (ABNORMAL) THROMBOPLASTIN TIME PARTIAL,PTT (07/29/2025 3:05 PM CDT) Only the most recent of21 resultswithin the time period is included. PTT 37.6(H) 25.1 - 36.5 SEC 07/29/2025 4:10 PM CDT [facility] 07/29/2025 3:05 PM CDT us Tia Johnson MD LABORATORY Final Resul t Performing Organization Address City/[facility]/ZIP Co de Phone Number [facility] [address] [place] [address], [place] [phone] * (ABNORMAL) PROTIME/INR, VENOUS (07/29/2025 3:05 PM CDT) Only the most recent of12 resultswithin the time period is included. PROTIME 17.7(H) 10.2 - 12.9 SEC 07/29/2025 4:10 PM CDT [facility] INR 1.5 07/29/2025 4:10 PM CDT [facility] Comment: Recommended INR Therapeutic Goals: 2.0-3.0 Routine Therapy 2.5-3.5 Mechanical Prosthetic Valves (High Risk) 07/29/2025 3:05 PM CDT us Tia Johnson MD LABORATORY Final Resul t [facility] [address] [place] [address], * (ABNORMAL) COMPREHENSIVE METABOLIC PANEL (07/29/2025 3:05 PM CDT) Only the most recent of9 resultswithin the time period is included. GLUCOSE 206(H) 70 - 99 MG/DL 07/29/2025 4:07 PM CDT [facility] BUN 44(H) 7 - 18 MG/DL 07/29/2025 4:07 PM CDT [facility] CREATININE S/P/B 2.92(H) 0.7 - 1.3 MG/DL 07/29/2025 4:07 PM CDT [facility] SODIUM S/P/B 143 136 - 145 MMOL/L 07/29/2025 4:07 PM CDT [facility] POTASSIUM S/P/B 4.4 3.5 - 5.1 MMOL/L 07/29/2025 4:07 PM CDT [facility] CHLORIDE S/P/B 110 97 - 115 MMOL/L 07/29/2025 4:07 PM CDT [facility] CO2 27.6 21 - 32 MMOL/L 07/29/2025 4:07 PM CDT [facility] CALCIUM S/P/B 8.1(L) 8.5 - 10.1 MG/DL 07/29/2025 4:07 PM T [facility] BILIRUBIN TOTAL S/P/B 0.3 0.2 - 1.2 MG/DL 07/29/2025 4:[address] [facility] Comment: THIS ASSAY IS NOT RECOMMENDED FOR PATIENTS UNDERGOING TREATMENT WITH ELTROMBOPAG DUE TO THE POTENTIAL FOR FALSELY ELEVATED RESULTS. TOTAL PROTEIN S/P/B 6.2(L) 6.4 - 8.2 G/DL 07/29/2025 4:[address] [facility] ALBUMIN S/P/B 2.7(L) 3.4 - 5.0 G/DL 07/29/2025 4:[address] [facility] AST 11(L) 15 - 37 U/L 07/29/2025 4:[address] [facility] ALT 19 16 - 60 U/L 07/29/2025 4:[address] [facility] ALKALINE PHOSPHATASE S/P/B 49(L) 50 - 136 U/L 07/29/2025 4:[address] [facility] ANION GAP 5.4 2 - 10 MMOL/L 07/29/2025 4:[address] [facility] BUN CREATININE RATIO 15.1 6 - 26 07/29/2025 4:[address] [facility] A/G RATIO 0.8(L) 1.0 - 2.0 RATIO 07/29/2025 4:[address] [facility] GFR ESTIMATE 22(L) >90 ML/MIN/1.7 3 M2 07/29/2025 4:[address] [facility] Comment: NOTE: eGFR is not calculated for patients <18 years of age or gender unknown. This is an estimated GFR calculation using the new CKD EPI creatinine equation without race and so does not require a correction factor for race. This estimated GFR should not be used for calculating drug doses. 07/29/2025 3:05 PM CDT Tia Johnson MD LABORATORY Final Resul t Performing Organization Address City/[facility] Co de Phone Number [facility] [address] [place] [address], * MRSA SCREENING (07/29/2025 3:04 PM CDT) Only the most recent of2 resultswithin the time period is included. SPEC DESCRIPTION NASAL 07/29/2025 2:50 PM CDT [facility] SPECIAL REQUESTS NO SPECIAL REQUEST 07/29/2025 2:50 PM CDT [facility] CULTURE RESULT NO METHICILLIN RESISTANT STAPHYLOCOCCUS AUREUS ISOLATED 07/30/2025 12:14 PM CDT [facility] SPECIMEN FROM INTERNAL NOSE / Unknown 07/29/2025 3:04 PM CDT 07/29/2025 3:05 PM CDT Tia Johnson MD MICROBIOLOGY - GENERAL ORDE [facility] Final Result Performing Organization Address [facility] Co de Phone Number [facility] [address] [place] [address], * (ABNORMAL) HEPARIN, ANTI XA, UFH (07/22/2025 3:26 AM CDT) Only the most recent of26 resultswithin the time period is included. HEPARIN ANTI XA UFH 0.80(H) 0.30 - 0.70 IU/ML 07/22/2025 4:33 AM CDT [facility] Comment: UFH Therapeutic Anti Xa Ranges: Medical Therapeutic Range: 0.30 - 0.70 IU/mL Cardiac Therapeutic Range: 0.30 - 0.50 IU/mL Neuro Therapeutic Range: 0.20 - 0.40 IU/mL 07/22/2025 3:26 AM CDT Scott Coronado MD LABORATORY Final Result Performing Organization Address City/[facility]/ZIP Co de Phone Number [facility] [address] [place] [address], * TRANSFUSE RED BLOOD CELLS (07/15/2025 11:37 AM CDT) Only the most recent of2 resultswithin the time period is included. Gloria Leon MD NURSING TREATMENT ORDERABLES - BLOOD ADMIN Final Result * (ABNORMAL) HEMOGLOBIN AND HEMATOCRIT (07/14/2025 11:25 AM CDT) Only the most recent of2 resultswithin the time period is included. HGB 7.0(L) 14.0 - 18.0 G/DL 07/14/2025 12:08 PM CDT [facility] HCT 23.3(L) 43.0 - 54.0 % 07/14/2025 12:08 PM CDT [facility] 07/14/2025 11:2 5 AM CDT [facility] Final Result [facility] [address] [place] [address], [place] [phone] * XR CHEST PA OR AP 1V (07/13/2025 5:25 AM CDT) Anatomical Region Laterality Modality Chest Radiographic Ivone ging 07/13/2025 5:26 AM CDT Impressions 07/13/2025 5:28 AM CDT IMPRESSION: 1. Small to medium right pleural effusion. Small left pleural effusion. 2. Groundglass opacities in the lung bases, right greater than left that could be related to atelectasis or pneumonia. Referred By: Interpreted By: Otilio Reese MD, 07/13/2025 5:26 AM Narrative 07/13/2025 5:28 AM CDT [place] [address] EXAMINATION: XR CHEST PA OR AP 1V, 07/13/2025 5:26 AM TECHNIQUE: Upright AP portable radiograph of the chest HISTORY: Hypoxia COMPARISON: Chest radiograph 07/09/2025 FINDINGS: Multiple leads overlying the chest. Right internal jugular catheter with its tip in the superior vena cava. Heart size is normal. Small to medium right pleural effusion. Small left pleural effusion. Groundglass opacities in the lung bases, right greater than left that could be related to atelectasis or pneumonia. Prominence of the pulmonary vascular pattern. No pneumothorax. Procedure Note Otilio Reese MD - 07/13/[address] [address] EXAMINATION: XR CHEST PA OR AP 1V, 07/13/2025 5:26 AM TECHNIQUE: Upright AP portable radiograph of the chest HISTORY: Hypoxia COMPARISON: Chest radiograph 07/09/2025 FINDINGS: Multiple leads overlying the chest. Right internal jugularcatheter with its tip in the superior vena cava. Heart size is normal.Small to medium right pleural effusion. Small left pleural effusion.Groundglass opacities in the lung bases, right greater than left thatcould be related to atelectasis or pneumonia. Prominence of the pulmonaryvascular pattern. No pneumothorax. IMPRESSION: 1. Small to medium right pleural effusion. Small left pleural effusion. 2. Groundglass opacities in the lung bases, right greater than left thatcould be related to atelectasis or pneumonia. Referred By: Interpreted By: Otilio Reese MD, 07/13/2025 5:26 AM us Harris Esquivel MD GENERAL IMAGING Final Result * XA VALVULOPLASTY (07/12/2025 5:21 PM CDT) Anatomical Region Laterality Modality Cardiac Ladle Liner Narrative 07/15/2025 9:39 AM CDT [facility] CARDIAC CATHETERIZATION/EP LAB [phone] BALLOON AORTIC VALVULOPLASTY Patient's Name: Carlos Mahajan Date of : 1950 Medical Record: #[id number] Account: #[id number] Physician: Tia Johnson M.D. Date: 07/12/2025 Procedure: #[id number] BALLOON AORTIC VALVULOPLASTY bobcat operator: Tia Johnson M.D. Procedures: Temporary Pacemaker Placement Balloon aortic valvuloplasty History: Carlos Mahajan is a 74-year-old male with past medical history significant for severe aortic stenosis who presents with dyspnea and fatigue. Procedural details The patient was identified by the physician, nursing and technical staff. The procedure's purpose, conduct, potential outcomes and possible complications were explained to the patient and written informed consent was obtained. The patient was placed on the procedure table. Appropriate ECG, blood pressure and pulse oximetry monitoring were established. Anesthesia identified the patient. The patient was prepped and draped for the procedure utilizing sterile technique. The patient was placed under general anesthesia. Anesthesia placed a left radial arterial line for hemodynamic monitoring. A transesophageal echocardiogram ultrasound probe was positioned in the mid esophagus after general anesthesia was administered. Percutaneous 7-Somali left femoral l venous accesses were obtained using ultrasound guidance. Ultrasound was used to visualize vessel patency and to needle entry into the lumen of the vessel. A temporary pacemaker was advanced into the right ventricle and reliable ventricular capture was verified. We then proceeded with contralateral femoral arterial access in the right common femoral artery. Two Perclose devices were placed using a preclose technique and the 14-Somali Cook sheath was advanced into the aorta. An AL1 catheter was advanced into the sheath and using a straight wire was used to cross the [place] aortic valve. The AL1 catheter was then exchanged for a 5-Somali pigtail catheter, which was advanced into the left ventricular apex, left ventricular and aortic valve gradients were measured. An Amplatz 0.035 Extra-Stiff wire was then advanced into the left ventricle. A #23 mm True balloon was then advanced within the aortic valve and balloon valvuloplasty was performed under rapid ventricular pacing. The 14 Somali sheath was removed and the previously placed Perclose sutures were deployed. External pressure was applied to the entry site for 5 minutes to help achieve hemostasis. The venous sheath was removed and a Vascade vascular closure device was used for hemostasis. Hence, the procedure was completed. Heparin was used for anticoagulation during the procedure. Echocardiogram per transthoracic echo report. EBL less than 50 mL cc. Conclusion: Successful balloon aortic valvuloplasty with a 23 mm True balloon. Tia Johnson MD [facility] Interpreted: 07/12/25 @ 17:09 Transcribed: 07/14/25 us Tia Johnson MD DIRECTOR RECORDS MANAGEMENT Final Resul t * USE [employer] (07/12/2025 4:26 PM CDT) Anatomical Region Laterality Modality Cardiac Echocardiogram 07/12/2025 4:10 PM CDT Narrative 07/13/2025 11:56 AM CDT Echocardiography Report Pat.Name: CARLOS MAHAJAN Pat.ID: [id number] .Date: 07/12/2025 Exam Time: 4:10:00 PM Study Type:ECHO WITH CARDIAC DOPPLER COMP Height: 70 in Weight: 212 lb BSA: 2.14 m2 Age: 11 1950,74Y Sex: M BP: 116/46 HR: 59 bpm Sonogrphr: Cynthia Wills RD, [facility] Pat. Stat.:Inpatient Room: 217 Reason for Study:Aortic stenosis, S/P Valvuloplasty Procedures: 2D, Doppler, Color Flow, Portable, The study quality is technically adequate. Limited Race: W ++++++++++++++++++++++++++++++++++++ SUMMARY: ++++++++++++++++++++++++++++++++++++ No evidence of pericardial effusion. Moderate to severe aortic valve stenosis. The peak velocity across the aortic valve measures 3.74m/sec with a peak gradient of 56mmHg and a mean gradient of 30mmHg. Moderate aortic regurgitation. Severe calcification of aortic valve leaflets. Dimensionless index of 0.25. ++++++++++++++++++++++++++++++++++++ FINDINGS: ++++++++++++++++++++++++++++++++++++ JOSE LUIS: No evidence of pericardial effusion. AV: Moderate to severe aortic valve stenosis. The peak velocity across the aortic valve measures 3.74m/sec with a peak gradient of 56mmHg and a mean gradient of 30mmHg. Moderate aortic regurgitation. Severe calcification of aortic valve leaflets. Dimensionless index of 0.25. ++++++++++++++++++++++++++++++++++++ MEASUREMENTS: ++++++++++++++++++++++++++++++++++++ DOPPLER LVOT LVOTpkPG 3 mmHg LVOT TVI 19 cm LVOTpkVel 82.2 cm/s (70-110) LVOTmnPG 2 mmHg AV Forward Flow AV TVI 74.2 cm AV mnPG 28 mmHg AV pkVel 358 cm/s (100-170)+* AV pkPG 51 mmHg AV Regurg Flow AV pkVel 340 cm/s AV P1/2t 469 msec AV pkPG 46 mmHg Aortic Valve Aortic Valve Ve 0.23 AV DI Value 0.26 <Electronic Signature> 07/13/2025 11:56 AM Tia Johnson M.D. Procedure Note Tia Johnson MD - 07/13/2025 Echocardiography Report Pat.Name: CARLOS MAHAJAN Pat.ID: [id number] .Date: 07/12/2025 Exam Time: 4:10:00 PM Study Type:ECHO WITH CARDIAC DOPPLER COMP Height: 70 in Weight: 212 lb BSA: 2.14 m2 Age: 11 1950,74Y Sex: M BP: 116/46 HR: 59 bpm Sonogrphr: Cynthia Wills RDCS, RCS Pat. Stat.:Inpatient Room: [facility] [place] Reason for Study:Aortic stenosis, S/P Valvuloplasty Procedures: 2D, Doppler, Color Flow, Portable, The study quality is technically adequate. Limited Race: W ++++++++++++++++++++++++++++++++++++ SUMMARY: ++++++++++++++++++++++++++++++++++++ No evidence of pericardial effusion. Moderate to severe aortic valve stenosis. The peak velocity across the aortic valve measures 3.74m/sec with a peak gradient of 56mmHg and a mean gradient of 30mmHg. Moderate aortic regurgitation. Severe calcification of aortic valve leaflets. Dimensionless index of 0.25. ++++++++++++++++++++++++++++++++++++ FINDINGS: ++++++++++++++++++++++++++++++++++++ JOSE LUIS: No evidence of pericardial effusion. AV: Moderate to severe aortic valve stenosis. The peak velocity across the aortic valve measures 3.74m/sec with a peak gradient of 56mmHg and a mean gradient of 30mmHg. Moderate aortic regurgitation. Severe calcification of aortic valve leaflets. Dimensionless index of 0.25. ++++++++++++++++++++++++++++++++++++ MEASUREMENTS: ++++++++++++++++++++++++++++++++++++ DOPPLER LVOT LVOTpkPG 3 mmHg LVOT TVI 19 cm LVOTpkVel 82.2 cm/s (70-110) LVOTmnPG 2 mmHg AV Forward Flow AV TVI 74.2 cm AV mnPG 28 mmHg AV pkVel 358 cm/s (100-170)+* AV pkPG 51 mmHg AV Regurg Flow AV pkVel 340 cm/s AV P1/2t 469 msec AV pkPG 46 mmHg Aortic Valve Aortic Valve Ve 0.23 AV DI Value 0.26 <Electronic Signature> 07/13/2025 11:56 AM Tia Johnson M.D. Tia Johnson MD ECHO Final Resul t * INTUBATION (07/12/2025 11:29 AM CDT) Ankit Roque MD - 07/12/2025 11:29 AM CDT Ankit Mckeon MD 07/12/2025 11:40 AM INTUBATION Date/Time: 07/12/2025 11:29 AM Performed by: SITA Villa Authorized by: Ankit Mckeon MD Consent: Verbal consent obtained Risks and benefits: risks, benefits and alternatives were discussed Consent given by: patient Patient understanding: patient states understanding of the procedure being performed Patient consent: the patient's understanding of the procedure matches consent given Procedure consent: procedure consent matches procedure scheduled Relevant documents: relevant documents present and verified Test results: test results available and properly labeled Site marked: the operative site was marked Imaging studies: imaging studies available Required items: required blood products, implants, devices, and special equipment available Patient identity confirmed: verbally with patient Time out: Immediately prior to procedure a time out was called to verify the correct patient, procedure, equipment, business support specialist and site/side marked as required. Indications: procedure. Intubation method: video-assisted Preoxygenation: BVM Pretreatment medications: none Sedatives: etomidate Paralytic: rocuronium Laryngoscope size: Mac 4 Tube size: 7.5 mm Tube type: cuffed Number of attempts: 1 Cricoid pressure: no Cords visualized: yes Post-procedure assessment: chest rise and CO2 detector Breath sounds: equal Cuff inflated: yes ETT to teeth: 22 cm Tube secured with: ETT ruiz Chest x-ray interpreted by me and radiologist. Chest x-ray findings: endotracheal tube in appropriate position Patient tolerance: patient tolerated the procedure well with no immediate complications Ankit Mckeon MD PROCEDURE/MINOR SURGICAL O RDERABLES Final Result * (ABNORMAL) PHOSPHORUS, INORGANIC PHOSPHATE (07/12/2025 4:58 AM CDT) Only the most recent of3 resultswithin the time period is included. PHOSPHORUS 5.4(H) 2.5 - 4.9 MG/DL 07/12/2025 5:29 AM CDT [facility] 07/12/2025 4:58 AM CDT Kiel Gamble MD LABORATORY Final R esult Performing Organization Address City/[facility] Co de Phone Number [facility] [address] [place] [address], [place] [phone] * HEPATITIS B SURFACE AG, EIA (07/10/2025 5:00 AM CDT) HEPATITIS B SURFACE AG NON-REACTI VE NON-REACTI VE 07/10/2025 2:58 PM CDT [facility] 07/10/2025 5:00 AM CDT Kiel Gamble MD LABORATORY Final R esult Performing Organization Address City/[facility]/ZIP Co de Phone Number [facility] [address] [place] [address], [place] [phone] * HEPATITIS B SURFACE ANTIBODY (07/10/2025 5:00 AM CDT) HEP B SURFACE AB NON-REACTI VE 07/10/2025 3:05 PM CDT [facility] 07/10/2025 5:00 AM CDT Kiel Gamble MD LABORATORY Final R esult [facility] [address] [place] [address], [place] [phone] * (ABNORMAL) Blood gas, venous (07/10/2025 1:50 AM CDT) PH VENOUS 7.30(L) 7.32 - 7.43 07/10/2025 2:07 AM CDT [facility] PCO2 VENOUS 48.0 MMHG 07/10/2025 2:07 AM CDT [facility] Comment:NO REFERENCE RANGE H BEEN ESTABLISHED PO2 VENOUS 75.0 MM HG 07/10/2025 2:07 AM CDT [facility] Comment:NO REFERENCE RANGE H BEEN ESTABLISHED TOTAL CO2 VENOUS 25.1 22.0 - 26.0 MMOL/L 07/10/2025 2:07 AM CDT [facility] BASE DEFICIT VENOUS 3.2 MMOL/L 07/10/2025 2:07 AM CDT [facility] Comment:NO REFERENCE RANGE H BEEN ESTABLISHED O2 SAT VENOUS 93 % 07/10/2025 2:07 AM CDT [facility] Comment:NO REFERENCE RANGE H BEEN ESTABLISHED BICARB VENOUS 23.6 22.0 - 29.0 MMOL/L 07/10/2025 2:07 AM CDT [facility] O2 ADMIN VENOUS 50 2:01 AM CDT [facility] 07/10/2025 1:50 AM CDT Kiel Gamble MD LABORATORY Final R esult [facility] [address] [place] [address], [place] [phone] * (ABNORMAL) CALCIUM, IONIZED BG (INPATIENT ONLY) (07/09/2025 6:18 PM CDT) CALCIUM IONIZED 1.12(L) 1.15 - 1.33 MMOL/L 07/09/2025 9:14 PM CDT [facility] 07/09/2025 6:18 PM CDT Kiel Gamble MD LABORATORY Final R esult [facility] [address] [place] [address], [place] [phone] * CENTRAL LINE (07/09/2025 4:17 PM CDT) Narrative Newton Fletcher MD - 07/09/2025 4:17 PM CDT Newton Fletcher MD 07/13/2025 4:18 PM CENTRAL LINE Date/Time: 07/09/2025 4:17 PM Performed by: Newton Fletcher MD Authorized by: Newton Fletcher MD Consent: Verbal consent obtained Consent given by: patient Patient identity confirmed: arm band Indications: Dialysis. Anesthesia: local infiltration Anesthesia: Local Anesthetic: lidocaine 1% without epinephrine Anesthetic total: 5 mL Preparation: skin prepped with ChloraPrep Skin prep agent dried: skin prep agent completely dried prior to procedure Sterile barriers: all five maximum sterile barriers used - cap, mask, sterile gown, sterile gloves, and large sterile sheet Hand hygiene: hand hygiene performed prior to central venous catheter insertion Location details: right internal jugular Patient position: flat Catheter type: triple lumen Catheter size: 12 Fr Ultrasound guidance: yes Sterile ultrasound techniques: sterile gel and sterile probe covers were used Number of attempts: 1 Successful placement: yes Post-procedure: line sutured Assessment: blood return through all ports Complications: No complications. Patient tolerance: patient tolerated the procedure well with no immediate complications Newton Fletcher MD PROCEDURE/MINOR SURGICAL ORD ERABLES Final Result * ANTITHROMBIN III ACT W/REFLEX TO AG (07/08/2025 11:41 AM CDT) ANTITHROMBIN III ACTIVITY 120 80 - 135 % normal 07/11/2025 9:51 PM CDT [facility] MORTONAshaMABELJESSICA REBECA Comment: Test Performed by Usman Davalos, [facility], [address] [place] [address] Enoc Glaser M.D., Ph.D., Director of Laboratories , [facility] [id number] 07/08/2025 11:4 1 AM CDT us Carley Pinto MD LABORATORY Final Result [facility] [address] , [place] [phone] * (ABNORMAL) FIBRINOGEN (07/08/2025 11:41 AM CDT) FIBRINOGEN 768(H) 200 - 393 MG/DL 07/08/2025 12:57 PM CDT [facility] 07/08/2025 11:4 1 AM CDT us Carley Pinto MD LABORATORY Final Result Performing Organization Address City/[facility]/ZIP Co de Phone Number [facility] [address] [place] [address], [place] [phone] * LACTIC ACID (07/08/2025 1:12 AM CDT) LACTIC ACID VENOUS 0.7 0.4 - 2.0 MMOL/L 07/08/2025 2:09 AM CDT [facility] 07/08/2025 1:12 AM CDT us Kevin Rivas MD LABORATORY Final Resul t [facility] [address] [place] [address], [place] [phone] * (ABNORMAL) AMMONIA (07/08/2025 1:12 AM CDT) AMMONIA 58(H) 11 - 32 UMOL/L 07/08/2025 1:48 AM CDT [facility] 07/08/2025 1:12 AM CDT Kevin Rivas MD LABORATORY Final Resul t [facility] [address] [place] [address], [place] [phone] * (ABNORMAL) PROTEIN, TOTAL AND PROTEIN ELECTROPH. W/IMMUNOFIX, SERUM (07/07/2025 5:06 PM CDT) Pathologist [facility] TOTAL PROTEIN (ELECTROPHORESIS SERUM) 6.1 6.1 - 8.1 g/dL 07/12/2025 4:25 PM CDT [facility] [place] ALBUMIN ELECTROPHORESIS S/P/B 2.5(L) 3.8 - 4.8 g/dL 07/12/2025 4:25 PM CDT [facility] [place] FLEUP-5-[id number] S/P/B 0.8(H) 0.2 - 0.3 g/dL 07/12/2025 4:25 PM CDT [facility] [place] [id number]-7-[id number] S/P/B 1.2(H) 0.5 - 0.9 g/dL 07/12/2025 4:25 PM CDT [facility] [place] BETA 1 GLOBULIN S/P/B 0.6 0.4 - 0.6 g/dL 07/12/2025 4:25 PM CDT [facility] [place] BETA 2 GLOBULIN S/P/B 0.4 0.2 - 0.5 g/dL 07/12/2025 4:25 PM CDT [facility] MORTONAshaMICHAEL FLAHERTY GAMMA GLOBULIN S/P/B 0.6(L) 0.8 - 1.7 g/dL 07/12/2025 4:25 PM CDT [facility] MORTONAshaMICHAEL FLAHERTY ABNORMAL PROTEIN BAND 1 S/P/B REPORT 07/12/2025 4:25 PM CDT [facility] MORTONAshaMICHAEL SANDOVALJoon Comment: No M Urbano detected. Reference Range: None Detected ELECTROPHORESIS INTERPRETATION REPORT(A) 07/12/2025 4:25 PM CDT [facility] MORTONAshaMICHAEL FLAHERTY Comment: Evaluation is consistent with an acute inflammatory pattern. Consistent with hypogammaglobulinemia. Serum free light chains or urine immunofixation should be considered if plasma cell dyscrasias are a possible clinical diagnosis. Test Performed by Usman Davalos, [facility], [address] [place] [address] Enoc Glaser M.D., Ph.D., Director of Laboratories , [place] [id number] IMMUNOFIXATION SERUM REPORT 07/12/2025 4:25 PM CDT [facility] SELENEAshaMICHAEL FLAHERTY Comment: Normal pattern. No monoclonal proteins detected. 07/07/2025 5:06 PM CDT us Carley Pinto MD LABORATORY Final Result [facility] [id number] [place] [address], * (ABNORMAL) KAPPA LAMBDA FREE RATIO (QST) (07/07/2025 5:06 PM CDT) KAPPA FREE LIGHT CHAIN 39.7(H) 3.3 - 19.4 mg/L 07/12/2025 1:03 PM CDT [facility] MORTONMICHAEL FLAHERTY LAMBDA FREE LIGHT CHAIN 25.4 5.7 - 26.3 mg/L 07/12/2025 1:03 PM CDT [facility] KAPPA/LAMBDA FREE 1.56 0.26 - 1.65 07/12/2025 1:03 PM CDT [facility] NELSON LLY Comment: Free kappa/lambda ratio in serum of normal individuals is 0.26-1.65. Excess production of free kappa or lambda chains can alter the ratio. Monoclonal free light chains are found in the serum of patients with multiple myeloma, Waldenstrom's macroglobulinemia, mu-heavy chain disease, primary amyloidosis, light chain deposition disease, monoclonal gammopathy of undetermined significance, and lymphoproliferative disorders. Measurement of free light chain concen- tration in serum is useful for diagnosis, prognosis, monitoring disease activity and following response to therapy of these disorders. Test Performed by [facility], [facility], [address] [place] [address] Enoc Glaser M.D., Ph.D., Director of Laboratories , [place] [id number] 07/07/2025 5:06 PM CDT us Carley Pinto MD LABORATORY Final Result Performing Organization Address City/[facility]/ZIP Co de Phone Number [facility] [address] [address], [place] [phone] * (ABNORMAL) IRON SAT PANEL (IRON,IBC,%SAT) (07/07/2025 5:06 PM CDT) IRON 13(L) 65.0 - 175.0 MCG/DL 07/07/2025 5:59 PM CDT [facility] IRON BINDING CAPACITY 236(L) 250 - 450 MCG/DL 07/07/2025 5:59 PM CDT [facility] IRON SATURATION 6(L) 20 - 55 % 5:59 PM CDT [facility] 07/07/2025 5:06 PM CDT us Carley Pinto MD LABORATORY Final Result Performing Organization Address City/[facility]/ZIP Co de Phone Number [facility] [address] [place] [address], [place] [phone] * (ABNORMAL) VITAMIN B-12 (07/07/2025 5:06 PM CDT) VITAMIN B12 S/P/B 1,334(H) 254 - 1,320 PG/ML 07/07/2025 6:23 PM CDT [facility] 07/07/2025 5:06 PM CDT Carley Pinto MD LABORATORY Final Result Performing Organization Address [facility] Co de Phone Number [facility] [address] [place] [address], [place] [phone] * (ABNORMAL) RETICULOCYTE CT, AUTO (07/07/2025 5:06 PM CDT) Pathologist [facility] RETICULOCYTE COUNT 1.5 0.8 - 2.1 % 07/07/2025 5:18 PM CDT [facility] ABSOLUTE RETICULOCYTE 0.05 0.03 - 0.11 x10'6/uL 07/07/2025 5:18 PM CDT [facility] IMMATURE RETIC FRACTION 15.5(H) 2.3 - 13.4 % 07/07/2025 5:18 PM CDT [facility] RETIC HGB 23.9(L) 28.0 - 35.0 PG 07/07/2025 5:18 PM CDT [facility] 07/07/2025 5:06 PM CDT us Carley Pinto MD LABORATORY Final Result Performing Organization Address City/[facility]/ZIP Co de Phone Number [facility] [address] [place] [address], [place] [phone] * (ABNORMAL) HAPTOGLOBIN, QUANT (07/07/2025 5:06 PM CDT) Pathologist [facility] HAPTOGLOBIN 540.0(H) 30.0 - 200.0 MG/DL 07/07/2025 5:39 PM CDT [facility] 07/07/2025 5:06 PM CDT us Carley Pinto MD LABORATORY Final Result [facility] [address] [place] [address], [place] [phone] * (ABNORMAL) LDH, LACTATE DEHYDROGENASE (07/07/2025 5:06 PM CDT) Pathologist [facility] LDH 242(H) 87 - 241 UNITS/L 07/07/2025 5:59 PM CDT [facility] 07/07/2025 5:06 PM CDT Carley Pinto MD LABORATORY Final Result [facility] [address] [place] [address], [place] [phone] * (ABNORMAL) HEPATIC FUNCTION PANEL (07/07/2025 5:06 PM CDT) Pathologist [facility] TOTAL PROTEIN S/P/B 7.2 6.4 - 8.2 G/DL 07/07/2025 5:59 PM CDT [facility] ALBUMIN S/P/B 2.2(L) 3.4 - 5.0 G/DL 07/07/2025 5:59 PM CDT [facility] BILIRUBIN TOTAL S/P/B 0.2 0.2 - 1.2 MG/DL 07/07/2025 5:59 PM CDT [facility] Comment: THIS ASSAY IS NOT RECOMMENDED FOR PATIENTS UNDERGOING TREATMENT WITH ELTROMBOPAG DUE TO THE POTENTIAL FOR FALSELY ELEVATED RESULTS. BILIRUBIN DIRECT S/P/B <0.1 0.0 - 0.20 MG/DL 07/07/2025 5:59 PM CDT [facility] BILIRUBIN INDIRECT S/P/B NOT CALCULATED 0.0 - 0.9 MG/DL 07/07/2025 5:59 PM CDT [facility] ALKALINE PHOSPHATASE S/P/B 55 50 - 136 U/L 07/07/2025 5:59 PM CDT [facility] AST 25 15 - 37 U/L 07/07/2025 5:59 PM CDT [facility] ALT 29 16 - 60 U/L 07/07/2025 5:59 PM CDT [facility] A/G RATIO 0.4(L) 1.0 - 2.0 RATIO 07/07/2025 5:59 PM CDT [facility] 07/07/2025 5:06 PM CDT Carley Pinto MD LABORATORY Final Result [facility] [address] [place] [address], * JAZIEL TEST DIRECT (HOLA) (07/07/2025 5:06 PM CDT) DIRECT JAZIEL-IGG NEGATIVE 07/07/2025 6:06 PM CDT [facility] DIRECT JAZIEL-C3 NEGATIVE 07/07/2025 6:06 PM CDT [facility] 07/07/2025 5:06 PM CDT us Carley Pinto MD BLOOD BANK TEST ORDERABLES Final Result [facility] [address] [place] [address], [place] [phone] * FOLIC ACID SERUM (07/07/2025 5:06 PM CDT) FOLATE 15.6 3.1 - 17.5 NG/ML 07/07/2025 6:23 PM CDT [facility] 07/07/2025 5:06 PM CDT us Carley Pinto MD LABORATORY Final Result Performing Organization Address City/[facility]/ZIP Co de Phone Number [facility] [address] [place] [address], [place] [phone] * FERRITIN (07/07/2025 5:06 PM CDT) FERRITIN 291.7 8.0 - 388.0 NG/ML 07/07/2025 6:23 PM CDT [facility] 07/07/2025 5:06 PM CDT us Carley Pinto MD LABORATORY Final Result [facility] [address] [place] [address], [place] [phone] * (ABNORMAL) LIPID PANEL (07/06/2025 5:37 AM CDT) CHOLESTEROL 89 <200 MG/DL 07/06/2025 7:49 AM CDT [facility] TRIGLYCERIDES 431(H) <150 MG/DL 07/06/2025 7:49 AM CDT [facility] Comment:REFLEXED DIRECT LDL DUE TO TRIG >400. HDL 8(L) >40.0 MG/DL 07/06/2025 7:49 AM CDT [facility] LDL (CALCULATED) NOT CALCULATED <100 MG/DL 07/06/2025 7:49 AM CDT [facility] Comment: TRIGLYCERIDE >400 INVALIDATES FRACTIONATION. CALCULATED USING THE FRIEDEWALD EQUATION NON HDL CHOLESTEROL 81 <130 MG/DL 07/06/2025 7:49 AM T [facility] CHOL/HDL RATIO 11.1(H) 0.0 - 4.5 07/06/2025 7:49 AM T [facility] VLDL CALCULATION NOT CALCULATED 5 - 55 MG/DL 07/06/2025 7:49 AM T [facility] Comment:TRIGLYCERIDE >400 IN VALIDATES FRACTIONATION. LIPID INTERPRETATION 07/06/2025 7:49 AM CDT [facility] Comment: [facility] REPORT RECOMMENDATIONS: ADULT CHILD LOW RISK: CHOLESTEROL <200 <170 TRIGLYCERIDE <150 --- HDL >=60 --- LDL <100 <110 BORDERLINE: CHOLESTEROL 200-239 170-199 TRIGLYCERIDE 150-199 --- HDL 40-59 --- LDL 100-159 110-129 HIGH RISK: CHOLESTEROL >=240 >=200 TRIGLYCERIDE >=200 --- HDL <40 --- LDL >=160 >=130 07/06/2025 5:37 AM CDT us Samanta Cheema MD LABORATORY Final Res ult [facility] [address] [place] [address], [place] [phone] * LIPOPROTEIN, LDL CHOL, DIRECT (07/06/2025 5:37 AM CDT) DIRECT LDL 27 <100 MG/DL 07/06/2025 8:09 AM CDT [facility] 07/06/2025 5:37 AM CDT Samanta Cheema MD LABORATORY Final Res ult [facility] [address] [place] [address], * (ABNORMAL) GI PANEL PCR - STOOL (07/06/2025 12:32 AM CDT) CAMPYLOBACTER PCR (STOOL) DETECTED(AA ) NOT DETECTED 07/06/2025 8:25 AM CDT [facility] PLESIOMONAS SHIGELLOIDES PCR (STOOL) NOT DETECTED NOT DETECTED 07/06/2025 8:25 AM CDT [facility] SALMONELLA PCR (STOOL) NOT DETECTED NOT DETECTED 07/06/2025 8:25 AM CDT [facility] VIBRIO PCR (STOOL) NOT DETECTED NOT DETECTED 07/06/2025 8:25 AM CDT [facility] VIBRIO CHOLERAE PCR (STOOL) NOT DETECTED NOT DETECTED 07/06/2025 8:25 AM CDT [facility] YERSINIA ENTEROCOLITICA PCR (STOOL) NOT DETECTED NOT DETECTED 07/06/2025 8:25 AM CDT [facility] ENTEROAGGREGATIVE ECOLI PCR (STOOL) NOT DETECTED NOT DETECTED 07/06/2025 8:25 AM CDT [facility] ENTEROPATHOGENIC ECOLI PCR (STOOL) NOT DETECTED NOT DETECTED 07/06/2025 8:25 AM CDT [facility] ENTEROTOXIGENIC ECOLI PCR (STOOL) NOT DETECTED NOT DETECTED 07/06/2025 8:25 AM CDT [facility] SHIGA LIKE TOXIN ECOLI PCR (STOOL) NOT DETECTED NOT DETECTED 07/06/2025 8:25 AM CDT [facility] SHIG/ENTEROINVASIVE ECOLI PCR (STOOL) NOT DETECTED NOT DETECTED 07/06/2025 8:25 AM CDT [facility] CRYPTOSPORIDIUM PCR (STOOL) NOT DETECTED NOT DETECTED 07/06/2025 8:25 AM CDT [facility] CYCLOSPORA CAYETANENSIS PCR (STOOL) NOT DETECTED NOT DETECTED 07/06/2025 8:25 AM CDT [facility] ENTAMOEBA HISTOLYTICA PCR (STOOL) NOT DETECTED NOT DETECTED 07/06/2025 8:25 AM CDT [facility] GIARDIA LAMBLIA PCR (STOOL) NOT DETECTED NOT DETECTED 07/06/2025 8:25 AM CDT [facility] ADENOVIRUS F40/41 PCR (STOOL) NOT DETECTED NOT DETECTED 07/06/2025 8:25 AM CDT [facility] ASTROVIRUS PCR (STOOL) NOT DETECTED NOT DETECTED 07/06/2025 8:25 AM CDT [facility] NOROVIRUS GI/GII PCR (STOOL) NOT DETECTED NOT DETECTED 07/06/2025 8:25 AM CDT [facility] ROTAVIRUS A PCR (STOOL) NOT DETECTED NOT DETECTED 07/06/2025 8:25 AM CDT [facility] SAPOVIRUS PCR (STOOL) NOT DETECTED NOT DETECTED 07/06/2025 8:25 AM CDT [facility] STOOL SPECIMEN / Unknown 07/06/2025 12:32 AM CDT Samanta Cheema MD MICROBIOLOGY - GENERAL OR DERABLES Final Result [facility] [address] [place] [address], * (ABNORMAL) TROPONIN, QUANT (07/05/2025 3:06 PM CDT) Only the most recent of2 resultswithin the time period is included. TROPONIN I HIGH SENSITIVITY 3,488(HH) <79 ng/L 07/05/2025 3:50 PM CDT [facility] Comment: NOT CALLED PER CRITICAL VALUE POLICY HIGH DOSES OF BIOTIN, TROPONIN-SPECIFIC AUTOANTIBODIES, AND ANTIBODY THERAPY CONTAINING HAMA MAY INTERFERE WITH THIS TEST RESULT. CORRELATION TO CLINICAL HISTORY AND PRESENTATION RECOMMENDED. 07/05/2025 3:06 PM CDT Samanta Cheema MD LABORATORY Final Res ult [facility] [address] [place] [address], * (ABNORMAL) URINALYSIS (07/05/2025 12:49 PM CDT) Pathologist [facility] SPECIMEN TYPE URINE CLEAN CATCH 07/05/2025 12:54 PM CDT [facility] COLOR (U) LIGHT YELLOW 07/05/2025 1:07 PM CDT [facility] TRANSPARENCY CLEAR 07/05/2025 1:07 PM CDT [facility] SPECIFIC GRAVITY (U) 1.013 1.001 - 1.030 07/05/2025 1:07 PM CDT [facility] U PH 5.0 5.0 - 9.0 07/05/2025 1:07 PM CDT [facility] LEUKOCYTES (U) NEGATIVE NEGATIVE 07/05/2025 1:07 PM CDT [facility] NITRITES NEGATIVE NEGATIVE 07/05/2025 1:07 PM CDT [facility] PROTEIN RANDOM (U) 50(H) <30 MG/DL 07/05/2025 1:07 PM CDT [facility] GLUCOSE (U) 500(A) NORMAL MG/DL 07/05/2025 1:07 PM CDT [facility] KETONES MG/DL (U) NEGATIVE NEGATIVE MG/DL 07/05/2025 1:07 PM CDT [facility] UROBILINOGEN NORMAL NORMAL MG/DL 07/05/2025 1:07 PM CDT [facility] BILIRUBIN (U) NEGATIVE NEGATIVE MG/DL 07/05/2025 1:07 PM CDT [facility] BLOOD (U) TRACE(A) NEGATIVE 07/05/2025 1:07 PM CDT [facility] MUCUS RARE /LPF 07/05/2025 1:07 PM CDT [facility] WBC/HPF 1 <6 /HPF 07/05/2025 1:07 PM CDT [facility] [facility] RBC/HPF 1 <6 /HPF 07/05/2025 1:07 PM CDT [facility] BACTERIA (U) RARE(A) NONE /HPF 07/05/2025 1:07 PM CDT [facility] URINE SPECIMEN OBTAINED BY CLEAN CATCH PROCEDURE / Unknown 07/05/2025 12:49 PM CDT us Chon Lobo MD URINE ORDERABLES Final Result [facility] [address] [place] [address], * EKG Reading (07/05/2025 12:31 PM CDT) Narrative Chon Lobo MD - 07/05/2025 12:31 PM CDT Chon Lobo MD 07/05/2025 1:23 PM EKG Reading Date/Time: 07/05/2025 12:31 PM Performed by: Chon Lobo MD Authorized by: Chon Lobo MD Interpreted by ED physician Comparison: compared with previous ECG from 06/01/2025 Rhythm: sinus rhythm Rate: normal BPM: 94 Comments: Normal sinus rhythm. Heart rate 94. Normal axis normal interval normal QRS nonspecific ST-T wave changes. Compared to EKG 06/01/2025 right bundle branch block noted. Rhythm strip ordered interpreted 1216 Normal sinus rhythm. Heart rate 94. No ectopy Chon Lobo MD [place] [facility] Final Result * LACTIC ACID W REFLEX (SEPSIS) (07/05/2025 12:09 PM CDT) LACTIC ACID VENOUS 1.0 0.4 - 2.0 MMOL/L 07/05/2025 1:00 PM CDT [facility] 07/05/2025 12:0 9 PM CDT Chon Lobo MD LABORATORY Final Result [facility] [address] [place] [address], * CORONAVIRUS (COVID 19) (07/05/2025 12:09 PM CDT) Pathologist [facility] CORONAVIRUS SARS COV 2 RNA NEGATIVE NEGATIVE 07/05/2025 12:45 PM CDT [facility] Comment: NEGATIVE RESULTS DO NOT RULE OUT COVID 19 AND SHOULD NOT BE USED THE SOLE BASIS FOR TREATMENT OR PATIENT MANAGEMENT DECISIONS, INCLUDING INFECTION CONTROL DECISIONS. NEGATIVE RESULTS SHOULD BE CONSIDERED IN THE CONTEXT OF A PATIENT'S RECENT EXPOSURES, HISTORY AND THE PRESENCE OF CLINICAL SIGNS AND SYMPTOMS CONSISTENT WITH COVID 19. THE ID NOW COVID-19 2.0 TEST HAS BEEN AUTHORIZED BY THE FDA UNDER EAU FOR USE BY AUTHORIZED LABORATORIES. PERFORMED BY NUCLEIC ACID AMPLIFICATION FOR MOLECULAR QUALITATIVE DETECTION OF SARS-COV-2. SPECIMEN TYPE NASAL 07/05/2025 12:06 PM CDT [facility] NASAL STRUCTURE / Unknown 07/05/2025 12:09 PM CDT Chon Lobo MD MICROBIOLOGY - GENERAL ORDERAB LES Final Result Performing Organization Address [facility]/ZIP Co de Phone Number [facility] [address] [place] [address], * (ABNORMAL) HEMOGLOBIN, GLYCOSYLATED (07/05/2025 12:09 PM CDT) HGB A1C 7.0(H) <5.7 % 07/05/2025 3:11 PM CDT [facility] Comment: ADA GUIDELINES 2010 5.7 TO 6.4% INCREASED RISK OF DIABETES > OR = 6.5% CONSISTENT WITH DIABETES ESTIMATED AVG GLUCOSE 154 mg/dL 07/05/2025 3:11 PM CDT [facility] 07/05/2025 12:0 9 PM CDT Samanta Cheema MD LABORATORY Final Res ult Performing Organization Address City/[facility]/ZIP Co de Phone Number [facility] [address] [place] [address], * INFLUENZA A & B (07/05/2025 12:09 PM CDT) SPECIMEN TYPE NASAL 07/05/2025 12:16 PM CDT [facility] INFLUENZA A NEGATIVE NEGATIVE 07/05/2025 12:45 PM CDT [facility] INFLUENZA B NEGATIVE NEGATIVE 07/05/2025 12:45 PM CDT [facility] Comment: Interpretation: Negative for Influenza A and B. A negative result does not exclude influenza virus infection. If influenza is circulating in your community, a diagnosis of influenza should be considered based on a patient's clinical presentation and empiric antiviral treatment should be considered, if indicated. If more conclusive testing is needed for hospitalized inpatients, follow-up confirmatory testing with RT-PCR requires a separate order. NASAL NASOPHARYNGEAL SWAB / Unknown 07/05/2025 12:09 PM CDT Chon Lobo MD MICROBIOLOGY - GENERAL ORDERAB LES Final Result [facility] [address] [place] [address], [place] [phone] * MRI ABD WWO CON (07/01/2025 10:12 AM CDT) Anatomical Region Laterality Modality Abdomen Magnetic Resonan ce 07/01/2025 3:49 PM CDT Impressions 07/01/2025 3:58 PM CDT IMPRESSION: The lesion the upper aspect of the right lobe of liver posteriorly is suggestive of a hemangioma but not diagnostic. Multiphase liver CT is recommended as this area is limitedly visualized due to artifact. There are multiple simple cyst within the liver and right as well left kidney that are present. Within the left kidney there are 2 masses that are present. These are noted to be hypervascular one has washout. These are both concerning for renal neoplastic lesions. Urological consultation is recommended. One of these measures 2.5 cm an additional measures 1.6 cm. Cholelithiasis without evidence cholecystitis. Ordered By: NAN FOUNTAIN Interpreted By: Gabriel Nelson MD, 07/01/2025 3:49 PM Narrative 07/01/2025 3:58 PM CDT [facility] [address] [place] [address] Procedure(s): MRI ABD WWO CON Date of service: 07/01/2025 9:04 AM Provided clinical information: 74 years, Male, liver mass Procedure and materials: Multiplanar multisequence MRI of the liver is performed. Examinations performed before and after intravenous contrast. 20 mL of MultiHance utilized. Comparison studies: CT examination June 10, 2025. Findings: The right and left adrenal glands are unremarkable. The spleen and pancreas are unremarkable. Within the right kidney there are T2 hyperintensities that are present these are T1 hypointense the do not enhance after the administration of intravenous contrast. These are consistent with small cysts. Within the interpolar left kidney there is a small partially exophytic mass that is present. This has early enhancement. This measures 1.7 cm. This is concerning for an underlying renal neoplasm. Urological consultation is recommended. This measures approximately 2.5 cm in transverse dimension. In the posterior interpolar left kidney there is an additional lesion that is present. This also has early enhancement with washout. This is indeterminate but in light of the early washout, this is concerning for an additional renal neoplastic lesion. This measures 1.6 cm. Urological consultation recommended. Additionally identified within the left kidney are a few small simple cysts. Cholelithiasis is present. No evidence of cholecystitis. No enlarged retroperitoneal lymph nodes. Within the posterior segment of the right lobe of the liver superiorly there is a T2 hyperintense lesion. This is T1 hypointense. There is noted enhancement that is present in the peripheral aspect slightly nodular in appearance on the postcontrast 1 minute phase images. This is suggestive of a hemangioma. This is not entirely diagnostic. In light of the location this area is limitedly visualized due to artifact. A multiphase liver CT would be recommended for further characterization. Also present within the liver are T2 hyperintense lesions that do not enhance after intravenous contrast and are consistent with small cysts. There is an additional T2 hyperintense T1 hypointense lesion that is present. This has peripheral nodular interrupted enhancement and is consistent with a small hemangioma. This measures approximately 0.9 cm. Procedure Note Gabriel Nelson MD - 07/01/2025 [facility] [address] [place] [address] Procedure(s): MRI ABD WWO CON Date of service: 07/01/2025 9:04 AM Provided clinical information: 74 years, Male, liver mass Procedure and materials: Multiplanar multisequence MRI of the liver isperformed. Examinations performed before and after intravenous contrast.20 mL of MultiHance utilized. Comparison studies: CT examination June 10, 2025. Findings: The right and left adrenal glands are unremarkable. The spleen andpancreas are unremarkable. Within the right kidney there are T2 hyperintensities that are presentthese are T1 hypointense the do not enhance after the administration ofintravenous contrast. These are consistent with small cysts. Within the interpolar left kidney there is a small partially exophyticmass that is present. This has early enhancement. This measures 1.7 cm.This is concerning for an underlying renal neoplasm. Urologicalconsultation is recommended. This measures approximately 2.5 cm intransverse dimension. In the posterior interpolar left kidney there is an additional lesion thatis present. This also has early enhancement with washout. This isindeterminate but in light of the early washout, this is concerning for anadditional renal neoplastic lesion. This measures 1.6 cm. Urologicalconsultation recommended. Additionally identified within the left kidney are a few small simplecysts. Cholelithiasis is present. No evidence of cholecystitis. No enlarged retroperitoneal lymph nodes. Within the posterior segment of the right lobe of the liver superiorlythere is a T2 hyperintense lesion. This is T1 hypointense. There is notedenhancement that is present in the peripheral aspect slightly nodular inappearance on the postcontrast 1 minute phase images. This is suggestiveof a hemangioma. This is not entirely diagnostic. In light of the locationthis area is limitedly visualized due to artifact. A multiphase liver CTwould be recommended for further characterization. Also present within the liver are T2 hyperintense lesions that do notenhance after intravenous contrast and are consistent with small cysts.There is an additional T2 hyperintense T1 hypointense lesion that ispresent. This has peripheral nodular interrupted enhancement and isconsistent with a small hemangioma. This measures approximately 0.9 cm. IMPRESSION: The lesion the upper aspect of the right lobe of liver posteriorly issuggestive of a hemangioma but not diagnostic. Multiphase liver CT isrecommended as this area is limitedly visualized due to artifact. There are multiple simple cyst within the liver and right as well leftkidney that are present. Within the left kidney there are 2 masses that are present. These arenoted to be hypervascular one has washout. These are both concerning forrenal neoplastic lesions. Urological consultation is recommended. One ofthese measures 2.5 cm an additional measures 1.6 cm. Cholelithiasis without evidence cholecystitis. Ordered By: NAN FOUNTAIN Interpreted By: Gabriel Nelson MD, 07/01/2025 3:49 PM us Nan Fountain MD MRI Final Resul t * CTA TAVR (06/10/2025 11:51 AM CDT) Anatomical Region Laterality Modality Chest Computed Tomogra phy 06/20/2025 10:4 9 AM CDT Impressions 06/20/2025 11:02 AM CDT IMPRESSION: 1. Aortic valvular complex and other cardiac findings interpreted by cardiology service. 2. Atherosclerotic aorta and pelvic arteries with measurements as described above. 3. Enhancing mass, dome of right hepatic lobe. Indeterminate. Possible hemangioma. RECOMMENDATION: May consider further evaluation with MRI abdomen with and without contrast. 4. Hepatomegaly. 5. Cholelithiasis. Ordered By: TIA JOHNSON Interpreted By: Scott Alberts MD, 06/20/2025 10:49 AM Narrative 06/20/2025 11:02 AM CDT [address] [address] EXAMINATION: CTA HEART WITH AND WITHOUT CONTRAST, LUNG OVER READ. CTA CHEST, ABDOMEN/PELVIS WITH CONTRAST. TAVR PROTOCOL. CLINICAL HISTORY: Aortic valve stenosis. TAVR evaluation. COMPARISON: None. TECHNIQUE: Computed tomography angiography of the heart was obtained before and after administration of intravenous contrast without immediate complication according to the TAVR ECG gated protocol. A total of 100 mL of Isovue-370 intravenous contrast was administered. Calcium score of aortic valve obtained. Computed tomography angiography of the chest, abdomen and pelvis was obtained after the completion of CT chest without ECG gating. 3-D curved MPR, MIP and volume rendered images were obtained and interpreted at a separate dedicated 3-D workstation. A dose lowering technique was used for this procedure, which may include, but is not limited to, dose reduction technique, automated exposure control, the use of iterative reconstruction, and ALARA (As Low As Reasonably Achievable) / Image Gently techniques. FINDINGS: I. CT chest: CARDIOVASCULAR FINDINGS: AORTIC VALVULAR COMPLEX AND OTHER CARDIAC FINDINGS: Interpreted by cardiology service. EXTRACARDIAC FINDINGS: Expiration images chest. No pneumothorax. No pleural effusion. Bibasilar linear atelectasis/scarring. Calcific granulomas. Atherosclerotic thoracic aorta. Calcified mediastinal lymph nodes. No mediastinal hematoma. II. CT abdomen/pelvis: VASCULAR FINDINGS: Abdominal aorta:Atherosclerotic abdominal aorta without aneurysm or stenosis. Celiac artery, superior mesenteric artery, and inferior mesenteric artery:Atherosclerosis. Right renal artery:Atherosclerosis. Left renal artery:Atherosclerosis. QUANTITATIVE MEASUREMENTS (min-max diameters) Distal aorta just above the bifurcation: 1.16.8 x 12.4 millimeters. 50% circumferential calcification. Right pelvic arteries: 1. Right common iliac artery:11.1 x 8 millimeters. 40% circumferential calcification. 2. Right external iliac artery:9.7 x 4.9 millimeters. 20% circumferential calcification. 3. Right common femoral artery:5.2 x 3.7 millimeters. 20% circumferential calcification. Left pelvic arteries: 1. Left common iliac artery:7.3 x 3.7 millimeters. 40% circumferential calcification. 2. Left external iliac artery:8.3 x 3.4 millimeters. 10% circumferential calcification. 3. Left common femoral artery:5.5 x 3.9 millimeters. 40% circumferential calcification. NONVASCULAR FINDINGS: Enhancing mass with peripheral nodules, possibly interrupted,, dome of right hepatic lobe. Hepatomegaly. Punctate splenic calcifications. Calcific gallstones. Adrenal glands are normal. Kidneys enhance symmetrically and probably. Probable renal cysts (no further follow-up recommended according consensus guidelines). No ureteral stones. No hydronephrosis. Atherosclerotic abdominal aorta without aneurysm. No retroperitoneal hematoma. No bowel obstruction. No bowel obstruction. No free air. No ascites. No large free pelvic fluid. Pelvic phleboliths. III. CT BONES: Spondylosis. Old right clavicle fracture. Procedure Note Scott Alberts MD - 06/20/[address] [address] EXAMINATION: CTA HEART WITH AND WITHOUT CONTRAST, LUNG OVER READ. CTACHEST, ABDOMEN/PELVIS WITH CONTRAST. TAVR PROTOCOL. CLINICAL HISTORY: Aortic valve stenosis. TAVR evaluation. COMPARISON: None. TECHNIQUE: Computed tomography angiography of the heart was obtainedbefore and after administration of intravenous contrast without immediatecomplication according to the TAVR ECG gated protocol. A total of 100 mLof Isovue-370 intravenous contrast was administered. Calcium score ofaortic valve obtained. Computed tomography angiography of the chest,abdomen and pelvis was obtained after the completion of CT chest withoutECG gating. 3-D curved MPR, MIP and volume rendered images were obtainedand interpreted at a separate dedicated 3-D workstation. A dose loweringtechnique was used for this procedure, which may include, but is notlimited to, dose reduction technique, automated exposure control, the useof iterative reconstruction, and ALARA (As Low As Reasonably Achievable) /Image Gently techniques. FINDINGS: I. CT chest: CARDIOVASCULAR FINDINGS: AORTIC VALVULAR COMPLEX AND OTHER CARDIAC FINDINGS: Interpreted by cardiology service. EXTRACARDIAC FINDINGS: Expiration images chest. No pneumothorax. No pleural effusion. Bibasilarlinear atelectasis/scarring. Calcific granulomas. Atherosclerotic thoracicaorta. Calcified mediastinal lymph nodes. No mediastinal hematoma. II. CT abdomen/pelvis: VASCULAR FINDINGS: Abdominal aorta:Atherosclerotic abdominal aorta without aneurysm orstenosis. Celiac artery, superior mesenteric artery, and inferior mesentericartery:Atherosclerosis. Right renal artery:Atherosclerosis. Left renal artery:Atherosclerosis. QUANTITATIVE MEASUREMENTS (min-max diameters) Distal aorta just above the bifurcation: 1.16.8 x 12.4 millimeters. 50% circumferential calcification. Right pelvic arteries: 1. Right common iliac artery:11.1 x 8 millimeters. 40% circumferentialcalcification. 2. Right external iliac artery:9.7 x 4.9 millimeters. 20% circumferentialcalcification. 3. Right common femoral artery:5.2 x 3.7 millimeters. 20% circumferentialcalcification. Left pelvic arteries: 1. Left common iliac artery:7.3 x 3.7 millimeters. 40% circumferentialcalcification. 2. Left external iliac artery:8.3 x 3.4 millimeters. 10% circumferentialcalcification. 3. Left common femoral artery:5.5 x 3.9 millimeters. 40% circumferentialcalcification. NONVASCULAR FINDINGS: Enhancing mass with peripheral nodules, possibly interrupted,, dome ofright hepatic lobe. Hepatomegaly. Punctate splenic calcifications.Calcific gallstones. Adrenal glands are normal. Kidneys enhancesymmetrically and probably. Probable renal cysts (no further follow-uprecommended according consensus guidelines). No ureteral stones. Nohydronephrosis. Atherosclerotic abdominal aorta without aneurysm. No retroperitonealhematoma. No bowel obstruction. No bowel obstruction. No free air. Noascites. No large free pelvic fluid. Pelvic phleboliths. III. CT BONES: Spondylosis. Old right clavicle fracture. IMPRESSION: 1. Aortic valvular complex and other cardiac findings interpreted bycardiology service. 2. Atherosclerotic aorta and pelvic arteries with measurements asdescribed above. 3. Enhancing mass, dome of right hepatic lobe. Indeterminate. Possiblehemangioma. RECOMMENDATION: May consider further evaluation with MRIabdomen with and without contrast. 4. Hepatomegaly. 5. Cholelithiasis. Ordered By: TIA JOHNSON Interpreted By: Scott Alberts MD, 06/20/2025 10:49 AM us Tia Johnson MD CT Final Resul t * CT TAVR FOR STILL OPERATOR HELPER READ (06/10/2025 11:51 AM CDT) Anatomical Region Laterality Modality Chest Computed Tomogra phy Narrative 08/02/2025 10:[address] ANGIOGRAM (Cardiology Portion) Patient Name: Carlos Mahajan : 1950 Date of Study: 06-10-2025 Interpreting Billiard Table Assembler: ITA JOHNSON M.D. Indication: TAVR workup History: 74-year-old male with aortic valve stenosis PRE PROCEDURE DATA: Baseline heart rate is 74 beats per minute. A 20 gauge Heplock was inserted in the left antecubital vein and flushed with a 0.9 NACL. PROCEDURE DATA: Baseline heart rate is 75 beats per minute. Medication totals: Metoprolol 0 mg IVP Nitroglycerin sublingual tab times 0 Isovue contrast total is 100 ml followed by a flush of 0.9 normal saline 100 ml POST PROCEDURE DATA: Post procedure heart rate is 70 beats per minute. Patient tolerated procedure well. IV access discontinued and band aide dressing applied to site. TECHNIQUE: Computed tomography was performed along the axial plane with 0.75 mm slice thickness utilizing IV administration of Isovue 370. FINDINGS: The coronary calcium score is 2185. The aortic valve calcium score is 3624. The quality of the study is good. CARDIAC STRUCTURES: Aorta: Aortic root measures 3.6cm, which is normal. Ascending aorta measures 3.4cm, which is normal. Cardiac Valves: Thickening and calcifications in the aortic valve. No thickening and calcifications in the mitral valve. There is mitral annular calcification. AORTIC VALVE: Morphology: Trileaflet AV annulus: 532.2 cm2 Sinus to left coronary cusp: 35.7 mm Perimeter: 82.8 mm Sinus to right coronary cusp: 36.1 mm Average diameter: 25.8 mm Sinus to non-coronary cusp: 38.0 mm Left coronary height: 19.4 mm Sinotubular junction: 30.8 mm Right coronary height: 19.8 mm Ascending aorta: 34.2 mm ADDITIONAL NON-CARDIAC STRUCTURES AND LUNGS READ BY RADIOLOGY COLLEAGUES. IMPRESSION: Plaque (Calcium Score): 2185. Aortic Valve Calcium Score: 3624. Electronically signed by TIA JOHNSON M.D. 08/01/2025 6:14 PM Tia Johnson MD CT Final Resul t * CREATININE URINE RANDOM (06/09/2025 10:40 AM CDT) CREATININE (U) 68.2 39 - 259 MG/DL 06/09/2025 11:35 AM CDT [facility] URINE SPECIMEN / Unknown 06/09/2025 10:40 AM CDT Sarah Camacho MD URINE ORDERABLES Final Result [facility] [address] [place] [address], [place] [phone] * (ABNORMAL) ALBUMIN URINE RANDOM W/CREATININE (06/09/2025 10:39 AM CDT) CREATININE (U) 66.7 39 - 259 MG/DL 06/09/2025 11:46 AM CDT [facility] MICROALBUMIN (U) 62.9(H) <2.0 mg/dL 06/09/2025 11:46 AM CDT [facility] ALBUMIN/CREAT RATIO 942.7(H) <30.0 MG/G 06/09/2025 11:46 AM CDT [facility] URINE SPECIMEN / Unknown 06/09/2025 10:39 AM CDT us Sarah Camacho MD URINE ORDERABLES Final Result Performing Organization Address City/[facility]/ZIP Co de Phone Number [facility] [address] [place] [address], [place] [phone] * DIABETIC RETINOPATHY EXAM (POSITIVE)(SCAN) (10/31/2022) [facility] Scanned SCANNING Final Resu lt [facility] from Last 3 Months or Most Recently Relevant to Health Maintenance Insurance MEDICARE [employer] OPEN ACCESS [facility] MEDICARE Advance Directives * Full Code (Latest Code Status on File) Date Activated Date Inactivated Comments 08/02/2025 2:19 PM 08/05/2025 6:00 PM * Full Code Date Activated Date Inactivated Comments 08/02/2025 7:18 AM 08/02/2025 2:19 PM * Full Code Date Activated Date Inactivated Comments 07/12/2025 5:55 PM 07/22/2025 1:44 PM * Full Code Date Activated Date Inactivated Comments 07/05/2025 3:53 PM 07/12/2025 5:55 PM * Full Code Date Activated Date Inactivated Comments 05/09/2022 10:45 AM 05/09/2022 7:49 PM Care Teams Apparel Manufacture Instructor Relationship Specialty [place] [address] [place] [address] PCP - General FAMILY PRACTICE 07/29/25 Sotero Rodríguez MD [address] [place] [address] [place] [employer] Table Assembler CARDIOVASCULAR DISEASE 04/06/18 Tia Johnson MD [address] [place] [address] Consulting Physician INTERVENTIONAL CARDIOLOGY 06/09/25 Catarino Bella MD [address] [place] [address] Consulting Physician INTERVENTIONAL CARDIOLOGY 06/09/25 Richard Post MD [address] [place] [address] Physician CARDIOTHORACIC SURGERY 06/09/25 Alli Melendrez MD [address] [place] [address] Consulting Physician CARDIOTHORACIC SURGERY 06/09/25 Tanesha Ingram PA [address] [place] [address] Physician Online Merchandising Specialist PHYSICIAN [place] PINION ADJUSTER 06/12/25 Alli Cardenas DO [facility] [address] [place] [id number] INTERNAL MEDICINE 07/29/25
--- OUTSIDE RECORDS SUMMARY | 2025-08-28 12:36 | XMS_ITS | Encounter Summary ---
Author Organization [facility] Address [address] [place] [address] Care Team Providers Care Sanitation Worker Cleaning Equipment Name Role Phone Aryan Le MD Unavailable Tyler Nunes MD Unavailable [phone] Catarino Bella MD Unavailable [phone] Richard Post MD Unavailable [phone] Alli Melendrez MD Unavailable [phone] Tanesha Ingram Unavailable [phone] Bessie Estrada RN Unavailable [phone] Amadou Vasques MD Primary Care Provider [phone] Alli Cardenas DO Unavailable Encounter Details Date Type Department Care Team (Latest Contact Info) Description 08/05/2025 Scan HEALTH INFO SRVCS Scanned, Doc Med Group Social History Tobacco Use Types Packs/Day Years Used Date Smoking Tobacco: Former Cigarettes 2 35 1 970 - 2005 Smokeless Tobacco: Never Alcohol Use Standard Drinks/Week Comments Not Currently 0 (1 standard drink = 0.6 oz pur e alcohol) [facility] Utilities Answer Date Recorded In the past 12 months has e electric, gas, oil, or water [employer] threatened to shut off services in your [...] Date Recorded Patient Health Questionnaire-2 Score 0 06/15/2025 Hunger Vital Sign Answer Date Recorded Within [...] any time in the past 12 m [facility], were you homeless or living in a residential (including now)? No 07/05/2025 Humiliation, Afraid, Rape, [...] any time in the past 12 m [facility], were you homeless or living in a residential (including now)? No 08/02/2025 [facility] [...] 2:14 PM CDT Felisha Sanchez RN Active documented as of this encounter Mental Status * Because of a physical, mental, or emotional condition, do you have serious difficulty concentrating, remembering, or making decisions? Answer Entry Date Author Status No 08/02/2025 2:14 PM CDT Felisha Sanchez RN Active documented in this encounter Plan of Treatment Upcoming Encounters Date Type Department Care Team (Late st Contact Info) Description 09/05/2025 8:00 AM FUNDRAISING DIRECTOR Office Visit [facility] Medical Group Family & Internal Medicine [facility] [address] [place] [address] Amadou Vasques MD [address] [place] [address] [id number] 09/15/2025 1:30 PM [address] DIRECT[address] [facility] [facility] [place] [address] Tanesha Ingram PA 3 [facility], [address] [place] [address] 09/15/2025 2:30 PM FUNDRAISING DIRECTOR Office Visit [facility], [address] [place] [address] Tanesha Ingram PA 3 [facility], [address] [place] [address] 09/16/2025 1:00 PM FUNDRAISING DIRECTOR Appointment [facility] Launch Manager ONE [facility] [place] [address] Aryan Le MD Three [facility] [address] [place] [address] 09/16/2025 1:30 PM FUNDRAISING DIRECTOR Appointment [facility] Launch Manager ONE [facility] [place] [address] Aryan Le MD Three [facility] [address] [place] [address] 10/17/2025 1:00 PM FUNDRAISING DIRECTOR Office Visit [facility] Multispecialty Care - [facility] 3 [facility], [address] [place] [address] Sarah Camacho MD 3 [facility], [address] [place] [address] 11/16/2025 12:20 PM FUNDRAISING DIRECTOR Office Visit [facility] [place] [address] [place] [address] Sarah Camacho MD 3 [facility], [address] [place] [address] 02/14/2026 9:00 AM CDT Appointment [facility] [place] [address] Jesus Aragon MD Three [facility]. [facility] [address] [place] [address] 02/24/2026 9:30 AM CDT Office Visit [facility] THREE [facility], [facility] [address] [place] [address] Jesus Aragon MD Three [facility]. [facility] [address] [place] [address] documented as of this encounter Visit Diagnoses Not on filedocumented in this encounter Additional Health Concerns Assessment Noted Time PHQ-9 Depression Total Score: 0 03/15/20 21 12:40 PM CDT documented as of this encounter Care Teams Sanitation Worker Cleaning Equipment Relationship Specialty [place] [address] [place] [address] PCP - General FAMILY PRACTICE 07/29/25 Aryan Le MD Three [facility]. [facility] [address] [place] [address] [place] Fur Farmer CARDIOVASCULAR DISEASE 04/06/18 Tyler Nunes MD [facility]. [address] [place], [place] [address] Consulting Physician INTERVENTIONAL CARDIOLOGY 06/09/25 Catarino Bella MD 3 [facility] [address] [place], [place] [address] Consulting Physician INTERVENTIONAL CARDIOLOGY 06/09/25 Richard Post MD 3 [facility] [address] [place], [place] [address] Physician CARDIOTHORACIC SURGERY 06/09/25 Alli Melendrez MD Three [facility]. [address] [place], [place] [address] Consulting Physician CARDIOTHORACIC SURGERY 06/09/25 Tanesha Ingram PA 3 [facility], [address] [place], [place] [address] Physician Power Systems Engineer PHYSICIAN CORRECTIONAL THERAPY DIRECTOR 06/12/25 Bessie Estrada, RN [address] [place], [place] 219844 Transport Medic (Ambulatory) REGISTERED NURSE 07/06/25 08/23/25 Alli Cardenas DO [address] [place] [address] INTERNAL MEDICINE 07/29/25 documented as of this encounter
--- OUTSIDE RECORDS SUMMARY | 2025-08-28 12:36 | XMS_ITS | Encounter Summary ---
Author Organization [facility] Address [address] [place] [address] Care Team Providers Care Seismic Engineer Name Role Phone Aryan Le MD Unavailable Tyler Nunes MD Unavailable [phone] Catarino Bella MD Unavailable [phone] Richard Post MD Unavailable [phone] Alli Melendrez MD Unavailable [phone] Tanesha Ingram Unavailable [phone] Tanesha Ingram Unavailable [phone] Bessie Estrada RN Unavailable [phone] Amadou Vasques MD Primary Care Provider [phone] Alli Cardenas DO Unavailable Encounter Details Date Type Department Care Team (Latest Contact Info) Description 03/14/2025 Apixio Message Enc [facility] Medical [facility] Multispecialty Care - [facility] 3 [facility] [address], [address] [address] [facility] Provider labs need to be completed Social History Tobacco Use Types Packs/Day Years [...] Date Recorded Patient Health Questionnaire-2 Score 0 12/29/2024 Sex and Gender Information Value Date Recorded Sex Assigned at Male 05/13/2025 11:00 AM CDT Legal Sex Male 11:09 PM CDT Gender Identity Male 05/13/2025 11:00 AM CDT Sexual Orientation Not on file Occupation Industry Job Start Date Job End Date Not on file Not on file Not on file Not on file documented as of this encounter Functional Status * Over the past 2 weeks, how often have you been bothered by any of the following problems? Question Answer Date of Assessment Author Status Feeling down, depressed, or hopeless Not at all 03/16/2025 11:10 AM CDT Park Estes L PN Active documented as of this encounter Plan of Treatment Upcoming Encounters Date Type Department Care Team (Late st Contact Info) Description 09/05/2025 8:00 AM SLASHER MACHINE OPERATOR Office Visit [facility] Medical Group Family & Internal Medicine [address] [address] Amadou Vasques MD [address] [place] [address] [id number] 09/15/2025 1:30 PM SLASHER MACHINE OPERATOR Appointment [place] [place] [address] Tanesha Ingram PA 3 [facility], [address] [place] [address]45[address] 09/15/2025 2:30 PM SLASHER MACHINE OPERATOR Office Visit [facility] THREE [facility], [address] [place] [address] Tanesha Ingram PA [address] [facility] [address], [address] [place] [address] 09/16/2025 1:00 PM SLASHER MACHINE OPERATOR Appointment [place] Insurance Advisor ONE [facility] [place] [address] Aryan Le MD Three [facility]. [address] [place] [address] 09/16/2025 1:30 PM SLASHER MACHINE OPERATOR Appointment [place] Insurance Advisor ONE [facility] [place] [address] Aryan Le MD Three [facility]. [address] [place] [address] 10/17/2025 1:00 PM SLASHER MACHINE OPERATOR Office Visit [facility] Multispecialty Care - [place] 3 [facility], [address] [place] [address] Sarah Camacho MD 3 [facility], [address] [place] [address] 11/16/2025 12:20 PM SLASHER MACHINE OPERATOR Office Visit [facility] [address] [phone] aSrah Camacho MD 3 [facility], [address] [place] [address] 02/14/2026 9:00 AM CDT Appointment [place] ONE [facility] [place] [address] Jesus Aragon MD Three [facility]. [facility] [address] [place], [place] [address] 02/24/2026 9:30 AM CDT Office Visit [facility] THREE [facility], [address] [place], [place] [phone] Jesus Aragon MD Three [facility]. [facility] [address] [place], [place] 140509 documented as of this encounter Visit Diagnoses Not on filedocumented in this encounter Additional Health Concerns Infection Onset Date Last Indicated Resolved Time Respiratory Rule Out 07/05/2025 07/05/2025 025 12:45 PM CDT COVID-19 Rule Out 07/05/2025 07/05/2025 07/05/2025 12:45 PM CDT Assessment Noted Time PHQ-9 Depression Total Score: 0 03/15/20 21 12:40 PM CDT documented as of this encounter Care Teams Seismic Engineer Relationship Specialty Start [place] [address] [place], [place] [id number] PCP - General FAMILY PRACTICE 07/29/25 Aryan Le MD Three [facility]. [facility] [address] [place] [address] [place] [employer] Housekeeper CARDIOVASCULAR DISEASE 04/06/18 Tyler Nunes MD [facility]. [facility] [address] [place], [place] 78[address] Consulting Physician INTERVENTIONAL CARDIOLOGY 06/09/25 Catarino Bella MD 3 [facility] [address] [place], [place] [address] Consulting Physician INTERVENTIONAL CARDIOLOGY 06/09/25 Richard Post MD 3 [facility] [address] [place] [address] Physician CARDIOTHORACIC SURGERY 06/09/25 Alli Melendrez MD Three [facility]. [address] [place], [place] [address] Consulting Physician CARDIOTHORACIC SURGERY 06/09/25 Tanesha Ingram PA 3 [facility], [address] [place], [place] [address] Drive [employer] Steering Post Repairer PHYSICIAN PROCESSING CLERK 06/09/25 06/12/25 Tanesha Ingram PA 3 [facility], [address] [place], [place] [address]69 Physician Bingo Cashier PHYSICIAN PROCESSING CLERK 06/12/25 Bessie Estrada, RN [address] [place], [place] 327434 Shareholder (Ambulatory) REGISTERED NURSE 07/06/25 08/23/25 Alli Cardenas DO [address] [place] [address] INTERNAL MEDICINE 07/29/25 documented as of this encounter
--- OUTSIDE RECORDS SUMMARY | 2025-08-28 12:36 | XMS_ITS | Encounter Summary ---
Author Organization [facility] Address [address] [place] [address] Care Team Providers Care Photovoltaic Installer Name Role Phone Aryan Le MD Unavailable Tyler Nunes MD Unavailable [phone] Catarino Bella MD Unavailable [phone] Richard Post MD Unavailable [phone] Alli Melendrez MD Unavailable [phone] Tanesha Ingram Unavailable [phone] Tanesha Ingram Unavailable [phone] Bessie Estrada RN Unavailable [phone] Amadou Vasques MD Primary Care Provider [phone] Alli Cardenas DO Unavailable Encounter Details Date Type Department Care Team (Late st Contact Info) Description 01/16/2023 Hospital Orders Only [facility] Medicare Interviewer [address] [place], [place] [phone] Aryan Le MD Three [facility]. [facility] [address] [place] [address] Social History Tobacco Use Types [...] AM CDT Vonnie Oswald RN Active * [place] Suicide Severity Rating Scale (Screener/Recent Self-Report) Question Answer Date of Assessment Author Status 1. Wish to be (Past 1 Month) No 01/17/2023 9:17 AM ANAT Vonnie Oswald RN Active 2. Non-Specific Active Suicidal Thoughts (Past 1 Month) No 01/17/2023 9:17 AM CDT Vonnie Oswald RN Active 6. Suicidal Behavior (Lifetime) No 01/17/2023 9:17 AM CDT Vonnie Oswald RN Active documented as of this encounter Plan of Treatment Upcoming Encounters Date Type Department Care Team (Late st Contact Info) Description 09/05/2025 8:00 AM QUANTITATIVE EQUITY HEAD Office Visit [facility] Medical Group Family & Internal Medicine [facility] [address] [place] [address] [place] [id number] [place] [address] 09/15/2025 1:30 PM QUANTITATIVE EQUITY HEAD Appointment [facility] ONE [facility] [place] [address] Tanesha Ingram PA 3 [facility], [address] [place] [address] 09/15/2025 2:30 PM QUANTITATIVE EQUITY HEAD Office Visit [facility] [facility], [address] [place] [address] Tanesha Ingram PA 3 [facility], [address] [place] [address] 09/16/2025 1:00 PM QUANTITATIVE EQUITY HEAD Appointment [facility] Medicare Interviewer [facility] [place] [address] Aryan Le MD [address] [place] [address] 09/16/2025 1:30 PM QUANTITATIVE EQUITY HEAD Appointment [facility] Medicare Interviewer [facility] [place] [address] Aryan Le MD [address] [place] [address] 10/17/2025 1:00 PM QUANTITATIVE EQUITY HEAD Office Visit [facility] Medical Group Multispecialty Care - [facility] 3 [facility], [address] [place] [address] Sarah Camacho MD 3 [facility], [address] [place] [address] 11/16/2025 12:20 PM QUANTITATIVE EQUITY HEAD Office Visit [facility] Medical Group Nephrology Specialty Clinic [place] [address] [place] [address] Sarah Camacho MD 3 [facility], [facility] [address] [place] [address] 02/14/2026 9:00 AM CDT Appointment [facility] [place] [address] Jesus Aragon MD Three [facility]. [facility] [address] [place] [address] 02/24/2026 9:30 AM CDT Office Visit [facility] THREE [facility], [address] [place] [address] Jesus Aragon MD Three [facility]. [facility] [address] [place] [address] documented as of this encounter Visit Diagnoses Not on filedocumented in this encounter Additional Health Concerns Infection Onset Date Last Indicated Resolved Time Respiratory Rule Out 07/05/2025 07/05/2025 025 12:45 PM CDT COVID-19 Rule Out 07/05/2025 07/05/2025 07/05/2025 12:45 PM CDT Assessment Noted Time PHQ-9 Depression Total Score: 0 03/15/20 21 12:40 PM CDT documented as of this encounter Care Teams Photovoltaic Installer Relationship Specialty [place] [address] [place] [address] PCP - General FAMILY PRACTICE 07/29/25 Aryan Le MD [address] [place] [address] [place] Doctor Chiropractic CARDIOVASCULAR DISEASE 04/06/18 Tyler Nunes MD [address] [place] [address] Consulting Physician INTERVENTIONAL CARDIOLOGY 06/09/25 Catarino Bella MD 3 [facility] [place] [address] [place] [address] Consulting Physician INTERVENTIONAL CARDIOLOGY 06/09/25 Richard Post MD [address] [place] [address] Physician CARDIOTHORACIC SURGERY 06/09/25 Alli Melendrez MD [address] [place] [address] Consulting Physician CARDIOTHORACIC SURGERY 06/09/25 Tanesha Ingram PA 3 [facility], [address] [place] [address] Chief Investigator PHYSICIAN CARD WRITER HAND 06/09/25 06/12/25 Tanesha Ingram PA 3 [facility] [address], [address] [place], [place] [address] Physician Manager Licensing PHYSICIAN CARD WRITER HAND 06/12/25 Bessie Estrada, RN [address] [place] [address] Crew Boss (Ambulatory) REGISTERED NURSE 07/06/25 08/23/25 Alli Cardenas DO [address] [place] [address] INTERNAL MEDICINE 07/29/25 documented as of this encounter
--- OUTSIDE RECORDS SUMMARY | 2025-08-28 12:36 | XMS_ITS | Encounter Summary ---
Author Organization [facility] Address [address] [place] [address] Care Team Providers Care Lockstitch Topstitcher Name Role Phone Aryan Le MD Unavailable Tyler Nunes MD Unavailable [phone] Catarino Bella MD Unavailable [phone] Richard Post MD Unavailable [phone] Alli Melendrez MD Unavailable [phone] Tanesha Ingram Unavailable [phone] Amadou Vasques MD Primary Care Provider [phone] Alli Cardenas DO Unavailable Encounter Details Date Type Department Care Team (Late st Contact Info) Description 08/28/2025 Hospital Encounter [facility] Intensive Care Unit [address] [place], [place] [address] Huy Forbes MD 1 [place] [address] Social History Tobacco Use Types Packs/Day Years Used Date Smoking Tobacco: Former Cigarettes 2 35 1 970 - 2004 Smokeless Tobacco: Never Alcohol Use Standard Drinks/Week Comments Not Currently 0 (1 standard drink = 0.6 oz pur e alcohol) [facility] Utilities Answer Date Recorded In the past 12 months has [employer] electric, gas, oil, or water company threatened [...] time in the past 12 m [facility], were you homeless or living in a longterm (including now)? No 07/05/2025 Humiliation, Afraid, Rape, [...] time in the past 12 m [facility], were you homeless or living in a longterm (including now)? No 08/02/2025 [facility] Utilities Answer Date Recorded In the past 12 months has e electric, gas, oil, or water company [...] Assessment Author Status No 08/02/2025 2:14 PM ANAT Felisha Sanchez RN Active * Are you blind or do you have serious difficulty seeing, even when wearing glasses? Answer Date of Assessment Author Status No 08/02/2025 2:14 PM ANAT Felisha Sanchez RN Active * Do you have serious difficulty walking or climbing stairs? Answer Date of Assessment Author Status Yes 08/02/2025 2:14 PM ANAT Felisha Sanchez RN Active * Do you have difficulty dressing or bathing? Answer Date of Assessment Author Status Yes 08/02/2025 2:14 PM ANAT Felisha Sanchez RN Active * Because of a physical, mental, or emotional condition, do you have difficulty doing errands alone such as visiting a doctor's office or shopping? Answer Date of Assessment Author Status Yes 08/02/2025 2:14 PM ANAT Felisha Sanchez RN Active documented as of [...] st Contact Info) Description 09/05/2025 8:00 AM SCRAPPER Office Visit [facility] Family & Internal Medicine [facility] [address] [place] [address] [place] [address] [place] [address] 09/15/2025 1:30 PM SCRAPPER Appointment [facility] ONE [facility] [place] [facility] [place] [address] Tanesha Ingram PA 3 [facility], [address] [place] [address] 09/15/2025 2:30 PM SCRAPPER [facility] THREE [facility], [address] [place] [address] Tanesha Ingram PA 3 [facility], [address] [place] [address] 09/16/2025 1:00 PM SCRAPPER Appointment [facility] Computer [place] [address] Aryan Le MD Three [facility]. [address] [place] [address] 09/16/2025 1:30 PM SCRAPPER Appointment [facility] Computer [place] [address] Aryan Le MD Three [facility]. [address] [place] [address] 10/17/2025 1:00 PM SCRAPPER Office Visit [facility] Group Multispecialty Care - [facility] 3 [facility], [address] [place] [address] Sarah Camacho MD 3 [facility] [address] [place] [address] 11/16/2025 12:20 PM SCRAPPER Office Visit [facility] Nephrology Specialty Clinic [place] [address] [place] [address] Sarah Camacho MD 3 [facility], [facility] [address] [place] [address] 02/14/2026 9:00 AM CDT Appointment [facility] [place] [address] Jesus Aragon MD Three [facility]. [facility] [address] [place] [address] 02/24/2026 9:30 AM CDT Office Visit [facility] THREE [facility], [facility] [address] [place] [address] Jesus Aragon MD Three [facility]. [facility] [address] [place] [address] documented as of this encounter Visit Diagnoses Diagnosis Syncope- Primary Syncope and collapse documented in this encounter Additional Health Concerns Assessment Noted Time PHQ-9 Depression Total Score: 0 03/15/20 21 12:40 PM CDT documented as of this encounter Care Teams Lockstitch Topstitcher Relationship Specialty Start [place] [address] [place] [address] PCP - General FAMILY PRACTICE 07/29/25 Aryan Le MD Three [facility]. [facility] [address] [place], [place] [address] [facility] Corrugated Box Machine Operator CARDIOVASCULAR DISEASE 04/06/18 Tyler Nunes MD Three [facility]. [address] [place] [address] Consulting Physician INTERVENTIONAL CARDIOLOGY 06/09/25 Catarino Bella MD 3 [facility] [address] [place], [place] [address] Consulting Physician INTERVENTIONAL CARDIOLOGY 06/09/25 Richadr Post MD 3 [facility] [address] [place], [place] [address] Physician CARDIOTHORACIC SURGERY 06/09/25 Alli Melendrez MD Three [facility]. [address] [place], [place] [address] Consulting Physician CARDIOTHORACIC SURGERY 06/09/25 Tanesha Ingram PA 3 [facility], [address] [place], [place] [address] Physician Livestock Farm Workers PHYSICIAN ANALYSIS LEAD 06/12/25 Alli Cardenas DO [address] [place] [address] INTERNAL MEDICINE 07/29/25 documented as of this encounter
--- OUTSIDE RECORDS SUMMARY | 2025-08-28 12:36 | XMS_ITS | Encounter Summary ---
Author Organization [facility] Address [address] [place] [address] Care Team Providers Care Instrumentation And Controls Technician Name Role Phone Aryan Le MD Unavailable Tyler Nunes MD Unavailable [phone] Catarino Bella MD Unavailable [phone] Richard Post MD Unavailable [phone] Alli Melendrez MD Unavailable [phone] Tanesha Ingram Unavailable [phone] Tanesha Ingram Unavailable [phone] Bessie Estrada RN Unavailable [phone] Amadou Vasques MD Primary Care Provider [phone] Alli Cardenas DO Unavailable Encounter Details Date Type Department Care Team (Late st Contact Info) Description 05/06/2022 Hospital Orders Only [facility] Telemetry Unit [place] [id number] Jesus Aragon MD Three [facility]. [facility] [address] [place], [place] [id number] Social History Tobacco Use Types Packs/Day Years [...] suspected to have Coronavirus/COVID-19? No / Unsure 05/09/2022 6:59 AM CDT documented as of this encounter Functional Status * Calculated C-SSRS Risk Score (Lifetime/Recent) Answer Date of Assessment Author Status No Risk Indicated 05/09/2022 7:33 AM CDT Margaret Castillo RN Active * [place] Suicide Severity Rating Scale (Screener/Recent Self-Report) Question Answer Date of Assessment Author Status 1. Wish to be (Past 1 Month) No 05/09/2022 7:33 AM CDT Margaret Castillo RN Active 2. Non-Specific Active Suicidal Thoughts (Past 1 Month) No 05/09/2022 7:33 AM CDT Margaret Castillo RN Active 6. Suicidal Behavior (Lifetime) No 05/09/2022 7:33 AM CDT Margaret Castillo RN Active documented as of this encounter Plan of Treatment Upcoming Encounters Date Type Department Care Team (Late st Contact Info) Description 09/05/2025 8:00 AM LABORER GENERAL Office Visit [facility] Medical Group Family & Internal Medicine [facility] [address] [place] [address] [place] [address] [place] [address] 09/15/2025 1:30 PM LABORER GENERAL Appointment [place] ONE [facility] [place] [address] Tanesha Ingram PA 3 [facility] [address] [place] [address] 09/15/2025 2:30 PM LABORER GENERAL Office Visit [facility] THREE [facility], [place] [place] [address] Tanesha Ingram PA 3 [facility] [address] [place] [address] 09/16/2025 1:00 PM LABORER GENERAL Appointment [place] [place] [address] Aryan Le MD Three [facility]. [place] [address] [place] [address] 09/16/2025 1:30 PM LABORER GENERAL Appointment [place] [place] [address] Aryan Le MD Three [facility]. [place] [address] [place] [address] 10/17/2025 1:00 PM LABORER GENERAL Office Visit [facility] Medical Group Multispecialty Care - [place] 3 [facility], [place] [place] [phone] Sarah Camacho MD 3 [facility], [facility] [address] [place] [address] 11/16/2025 12:20 PM LABORER GENERAL Office Visit [facility] Medical Group Ne[facility] [place] [address] [place] [address] Sarah Camacho MD 3 [facility], [facility] [address] [place] [address] 02/14/2026 9:00 AM CDT Appointment [facility] Vascular Lab ONE [facility] [place] [address] Jseus Aragon MD Three [facility]. [facility] [address] [place] [address] 02/24/2026 9:30 AM CDT Office Visit [facility] THREE [facility], [place] [place] [address] Jesus Aragon MD Three [facility]. [facility] [address] [place] [address] documented as of this encounter Visit Diagnoses Not on filedocumented in this encounter Additional Health Concerns Infection Onset Date Last Indicated Resolved Time Respiratory Rule Out 07/05/2025 07/05/2025 025 12:45 PM CDT COVID-19 Rule Out 07/05/2025 07/05/2025 07/05/2025 12:45 PM CDT Assessment Noted Time PHQ-9 Depression Total Score: 0 03/15/20 21 12:40 PM CDT documented as of this encounter Care Teams Instrumentation And Controls Technician Relationship Specialty [place] [address] [facility] [place] [address] PCP - General FAMILY PRACTICE 07/29/25 Aryan Le MD [address] [place] [address] [place] [address] Blanket Economic Research Assistant CARDIOVASCULAR DISEASE 04/06/18 Tyler Nunes MD [address] [place] [address] [place] [address] Consulting Physician INTERVENTIONAL CARDIOLOGY 06/09/25 Catarino Bella MD 3 [facility] [address] [place] [address] Consulting Physician INTERVENTIONAL CARDIOLOGY 06/09/25 Richard Post MD [address] [place] [address] Physician CARDIOTHORACIC SURGERY 06/09/25 Alil Melendrez MD [address] [place] [address] [place] [address] Consulting Physician CARDIOTHORACIC SURGERY 06/09/25 Tanesha Ingram PA [address] [place] [address] Spice Grinder PHYSICIAN COMPUTER FORENSICS ANALYST 06/09/25 06/12/25 Tanesha Ingram PA [address] [place], [place] [address] Physician Fire Department Marine Engineer PHYSICIAN COMPUTER FORENSICS ANALYST 06/12/25 Bessie Estrada, RN [address] [place] [address] Supervisor Cell Efficiency (Ambulatory) REGISTERED NURSE 07/06/25 08/23/25 Alli Cardenas DO [address] [place] [address] INTERNAL MEDICINE 07/29/25 documented as of this encounter
--- OUTSIDE RECORDS SUMMARY | 2025-08-28 12:36 | XMS_ITS | Encounter Summary ---
Author Organization [facility] Address [address] [place] [address] Care Team Providers Care Pig Casting Machine Operator Name Role Phone Aryan Le MD Unavailable Tyler Nunes MD Unavailable [phone] Catarino Bella MD Unavailable [phone] Richard Post MD Unavailable [phone] Alli Melendrez MD Unavailable [phone] Tanesha Ingram Unavailable [phone] Bessie Estrada RN Unavailable [phone] Amadou Vasques MD Primary Care Provider [phone] Alli Cardenas DO Unavailable Encounter Details Date Type Department Care Team (Late st Contact Info) Description 08/02/2025 Results Follow-Up [facility], [address] [address] Shayla Morales, RN PRO BNP ([facility]) Social History Tobacco Use Types Packs/Day Years Used Date Smoking Tobacco: Former Cigarettes 2 35 1 970 - 2005 Smokeless Tobacco: Never Alcohol Use Standard Drinks/Week Comments Not Currently 0 (1 standard drink = 0.6 oz pur e alcohol) [facility] Utilities Answer Date Recorded In the past 12 months has [employer] electric, gas, oil, or water company threatened [...] any time in the past 12 m [facility], were you homeless or living in a fdc (including now)? No 07/05/2025 Humiliation, Afraid, Rape, [...] money to buy more. Never true 08/02/20 Within the past 12 months, t he [...] any time in the past 12 m [facility], were you homeless or living in a fdc (including now)? No 08/02/2025 [facility] Utilities Answer Date Recorded In the past [...] as of this encounter Functional Status * Question Answer Date of Assessment Author Status Do you have serious difficulty walking or climbing stairs? Yes 08/02/2025 2:14 PM ANAT Felisha Sanchez RN Active * Question Answer Date of Assessment Author Status Do you have difficulty dressing or bathing? Yes 08/02/2025 2:14 PM ANAT Felisha Sanchez RN Active Because of a physical, mental, or emotional condition, do you have difficulty doing errands alone such as visiting a doctor's office or shopping? Yes 08/02/2025 2:14 PM ANAT Felisha Sanchez RN A ctive * Are you deaf or do you have serious difficulty hearing Answer Date of Assessment Author Status No 08/02/2025 2:14 PM ANAT Felisha Sanchez RN Active * Are you blind or do you have serious difficulty seeing, even when wearing glasses? Answer Date of Assessment Author Status No 08/02/2025 2:14 PM Felisha Tierney RN Active * Do you have serious difficulty walking or climbing stairs? Answer Date of Assessment Author Status Yes 08/02/2025 2:14 PM Felisha Tierney RN Active * Do you have difficulty dressing or bathing? Answer Date of Assessment Author Status Yes 08/02/2025 2:14 PM Felisha Tierney RN Active * Because of a physical, mental, or emotional condition, do you have difficulty doing errands alone such as visiting a doctor's office or shopping? Answer Date of Assessment Author Status Yes 08/02/2025 2:14 PM Felisha Tierney RN Active * Question Answer Date of Assessment Author Status Are you deaf or do you have serious difficulty hearing No 08/02/2025 2:14 PM CDT Felisha Sanchez RN A ctive Are you blind or do you have serious difficulty seeing, even when wearing glasses? No 08/02/2025 2:14 PM CDT Felisha Sanchez RN A ctive * Calculated C-SSRS Risk Score (Lifetime/Recent) Answer Date of Assessment Author Status No Risk Indicated 08/02/2025 2:16 PM ANAT Migel Sanchez RN Active * [place] Suicide Severity Rating Scale (Screener/Recent Self-Report) Question Answer Date of Assessment Author Status 1. Wish to be (Past 1 Month) No 08/02/2025 2:16 PM CDT Felisha Sanchez RN A ctive 2. Non-Specific Active Suicidal Thoughts (Past 1 Month) No 08/02/2025 2:16 PM Felisha Tierney RN A ctive 6. Suicidal Behavior (Lifetime) No 08/02/2025 2:16 PM CDT Felisha Sanchez RN A ctive documented as of this encounter Mental Status * Question Answer Entry Date Author Status Because of a physical, mental, or emotional condition, do you have serious difficulty concentrating, remembering, or making decisions? No 08/02/2025 2:14 PM ANAT Felisha Sanchez RN Active * Because of a physical, mental, or emotional condition, do you have serious difficulty concentrating, remembering, or making decisions? Answer Entry Date Author Status No 08/02/2025 2:14 PM Felisha Tierney RN Active documented in this encounter Plan of Treatment Upcoming Encounters Date Type Department Care Team (Late st Contact Info) Description 09/05/2025 8:00 AM EGG CASER Office Visit [facility] Medical Group Family & Internal Medicine [facility] [address] [place] [address] Amadou Vasques MD [address] [place] [address] 09/15/2025 1:[address] [facility]iology [address] [facility] [place] [address] Tanesha Ingram PA [address] [place] [address] 09/15/2025 2:30 PM EGG CASER Office Visit [facility] [address], [place] [place] [address] Tanesha Ingram PA [address] [place] [address] 09/16/2025 1:00 PM EGG CASER Appointment [place] Poultry Inspector ONE [facility] [place] [address] Aryan Le MD [address] [place] [address] [place] [address] 09/16/2025 1:30 PM EGG CASER Appointment [place] Poultry Inspector ONE [facility] [place] [address] Aryan Le MD [address] [place] [address] [place] [address] 10/17/2025 1:00 PM EGG CASER Office Visit [facility] Multispecialty Care - [place] [address], [place] [place] [address] Sarah Camacho MD [address], [place] [place] [address] 11/16/2025 12:20 PM EGG CASER Office Visit [facility] Nephrology Specialty Clinic [address] [address] Sarah Camacho MD 3 [facility], [place] [place] [address] 02/14/2026 9:00 AM CDT Appointment [place] ONE [facility] [place] [address] Jesus Aragon MD Three [facility]. [facility] [address] [place] [address] 02/24/2026 9:30 AM CDT Office Visit [facility] THREE [facility], [facility] [address] [place] [address] Jesus Aragon MD Three [facility]. [facility] [address] [place] [address] documented as of this encounter Visit Diagnoses Not on filedocumented in this encounter Additional Health Concerns Assessment Noted Time PHQ-9 Depression Total Score: 0 03/15/20 21 12:40 PM CDT documented as of this encounter Care Teams Pig Casting Machine Operator Relationship Specialty [place] [address] [place] [address] PCP - General FAMILY PRACTICE 07/29/25 Aryan Le MD Three [facility]. [facility] [address] [place], [place] [address] Taft Briquette Maker CARDIOVASCULAR DISEASE 04/06/18 Tyler Nunes MD Three [facility]. [facility] [address] [place], [place] [address] Consulting Physician INTERVENTIONAL CARDIOLOGY 06/09/25 Catarino Bella MD 3 [facility] [address] [place], [place] [address] Consulting Physician INTERVENTIONAL CARDIOLOGY 06/09/25 Richard Post MD 3 [facility] [address] [place], [place] [address] Physician CARDIOTHORACIC SURGERY 06/09/25 Alli Melendrez MD Three [facility]. [place] [address] [place], [place] [address] Consulting Physician CARDIOTHORACIC SURGERY 06/09/25 Tanesha Ingram PA 3 [facility], [address] [place], [place] [address] Physician Wrapper Layer And Examiner Soft Work PHYSICIAN CUSTOMS DIRECTOR 06/12/25 Bessie Estrada, RN [address] [place], [place] [address] Safety Deposit Supervisor (Ambulatory) REGISTERED NURSE 07/06/25 08/23/25 Alli Cardenas DO [address] [place] [address] INTERNAL MEDICINE 07/29/25 documented as of this encounter
--- OUTSIDE RECORDS SUMMARY | 2025-08-28 12:37 | XMS_ITS | Encounter Summary ---
Author Organization [facility] Address [address] [place] [address] Care Team Providers Care Utility Division Project Manager Name Role Phone Aryan Le MD Unavailable Tyler Nunes MD Unavailable [phone] Catarino Bella MD Unavailable [phone] Richard Post MD Unavailable [phone] Alli Melendrez MD Unavailable [phone] Tanesha Ingram Unavailable [phone] Bessie Estrada RN Unavailable [phone] Amadou Vasques MD Primary Care Provider [phone] Alli Cardenas DO Unavailable Encounter Details Date Type Department Care Team (Late st Contact Info) Description 06/23/2025 Hospital Orders Only [facility] [place] [address] Aryan Le MD Three [facility]. [facility] [address] [place] [address] Social History Tobacco Use Types [...] Recorded Patient Health Questionnaire-2 Score 0 06/15/2025 Sex and Gender Information Value Date Recorded [...] st Contact Info) Description 09/05/2025 8:00 AM BURRER HAND Office Visit [facility] Medical Group Family & Internal Medicine [facility] [address] [place] [address] [place]adou [place]ques [place] [address] [place] [id number] 09/15/2025 1:30 PM BURRER HAND Appointment [facility] [place] [address] Tanesha Ingram PA 3 [facility], [address] [address] 09/15/2025 2:30 PM BURRER HAND Office Visit [facility] THREE [facility], [place] [address] [place] [address] Tanesha Ingram PA 3 [facility], [address] [address] 09/16/2025 1:00 PM BURRER HAND Appointment [facility] Form Setter [employer] Forms ONE [facility] [address] Aryan Le MD Three [facility]. [facility] [address] [place] [address] 09/16/2025 1:30 PM BURRER HAND Appointment [place] [employer] ONE [place] [address] Aryan Le MD Three [facility]. [place] [address] [place] [address] 10/17/2025 1:00 PM BURRER HAND Office Visit [facility] Multispecialty Care - [facility] 3 [facility], [facility] [address] [place] [address] Sarah Camacho MD 3 [facility], [facility] [address] [place] [address] 11/16/2025 12:20 PM BURRER HAND Office Visit [facility] Nephrology Specialty Clinic [address] [phone] Sarah Camacho MD 3 [facility], [facility] [address] [place] [address] 02/14/2026 9:00 AM CDT Appointment [facility] ONE [place] [address] Jesus Aragon MD Three [facility]. [facility] [address] [place] [address] 02/24/2026 9:30 AM CDT Office Visit [facility] THREE [facility], [place] [place] [address] Jesus Aragon MD Three [facility]. [facility] [address] [place] [address] documented as of this encounter Visit Diagnoses Not on filedocumented in this encounter Additional Health Concerns Infection Onset Date Last Indicated Resolved Time Respiratory Rule Out 07/05/2025 07/05/2025 025 12:45 PM CDT COVID-19 Rule Out 07/05/2025 07/05/2025 07/05/2025 12:45 PM CDT Assessment Noted Time PHQ-9 Depression Total Score: 0 03/15/20 21 12:40 PM CDT documented as of this encounter Care Teams Utility Division Project Manager Relationship Specialty [place] [address] [place] [address] PCP - General FAMILY PRACTICE 07/29/25 Aryan Le MD Three [facility]. [facility] [address] [place] [address] [place] Test And Turn Up Technician CARDIOVASCULAR DISEASE 04/06/18 Tyler Nunes MD Three [facility]. [facility] [address] [place] [address] Consulting Physician INTERVENTIONAL CARDIOLOGY 06/09/25 Catarino Bella MD 3 [facility] [place] [address] [place] [address] Consulting Physician INTERVENTIONAL CARDIOLOGY 06/09/25 Richard Post MD 3 [facility] [address] [place], [place] [phone] Physician CARDIOTHORACIC SURGERY 06/09/25 Alli Melendrez MD Three [facility]. [place] [address] [place], [place] [address] Consulting Physician CARDIOTHORACIC SURGERY 06/09/25 Tanesha Ingram PA 3 [facility], [address] [place], [place] [address] Physician Hot Cell Technician PHYSICIAN PRIMARY GRADE TEACHER 06/12/25 Bessie Estrada, RN [address] [place] [address] Senior Construction Project Manager (Ambulatory) REGISTERED NURSE 07/06/25 08/23/25 Alli Cardenas DO [facility] [address] [place] [address] INTERNAL MEDICINE 07/29/25 documented as of this encounter
--- OUTSIDE RECORDS SUMMARY | 2025-08-28 12:37 | XMS_ITS | Encounter Summary ---
Author Organization [facility] System Address [address] [place] [address] Care Team Providers Care Mutuel Clerk Name Role Phone Aryan Le MD Unavailable Tyler Nunes MD Unavailable [phone] Catarino Bella MD Unavailable [phone] Richard Post MD Unavailable [phone] Alli Melendrez MD Unavailable [phone] Tanesha Ingram Unavailable [phone] Tanseha Ingram Unavailable [phone] Bessie Estrada RN Unavailable [phone] Amadou Vasques MD Primary Care Provider [phone] Alli Cardenas DO Unavailable Encounter Details Date Type Department Care Team (Late st Contact Info) Description 03/21/2025 Reaching Our Outdoor Friends (ROOF) Message Enc [facility] Multispecialty Care - [facility] 3 [facility] [address], [address] [address] [facility] Provider lab results Social History Tobacco Use Types Packs/Day Years [...] st Contact Info) Description 09/05/2025 8:00 AM GUEST HOUSE MANAGER Office Visit [facility] Medical Group Family & Internal Medicine - [place] [address] [place] [address] [place] [address] [place], [place] [phone] 09/15/2025 1:30 PM GUEST HOUSE MANAGER [facility]ment [facility] [place] [address] Tanesha Ingram PA [address] [facility], [address] [address] 09/15/2025 2:30 PM GUEST HOUSE MANAGER Office Visit [facility] [facility], [place] [address] [place] [address] Tanesha Ingram PA [address] [facility], [address] [address] 09/16/2025 1:00 PM GUEST HOUSE MANAGER [facility]ointment [facility] Treatment Counselor [facility] [address] Aryan Le MD Three [facility] [address] [place] [address] 09/16/2025 1:30 PM GUEST HOUSE MANAGER Appointment [place] [address] Aryan Le MD Three [facility]. [place] [address] [place] [address] 10/17/2025 1:00 PM GUEST HOUSE MANAGER Office Visit [facility] Multispecialty Care - [facility] [address] [facility], [facility] [address] [place] [address] Sarah Camacho MD 3 [facility], [facility] [address] [place] [address] 11/16/2025 12:20 PM GUEST HOUSE MANAGER Office Visit [facility] [address] [phone] Sarah Camacho MD 3 [facility], [facility] [address] [place] [address] 02/14/2026 9:00 AM CDT Appointment [facility] [place] [address] Jesus Aragon MD Three [facility]. [facility] [address] [place] [address] 02/24/2026 9:30 AM CDT Office Visit [facility] THREE [facility], [place] [address] [place] [address] Jesus Aragon MD [facility] [place] [address] [place] [address] documented as of this encounter Visit Diagnoses Not on filedocumented in this encounter Additional Health Concerns Infection Onset Date Last Indicated Resolved Time Respiratory Rule Out 07/05/2025 07/05/2025 025 12:45 PM CDT COVID-19 Rule Out 07/05/2025 07/05/2025 07/05/2025 12:45 PM CDT Assessment Noted Time PHQ-9 Depression Total Score: 0 03/15/20 21 12:40 PM CDT documented as of this encounter Care Teams Mutuel Clerk Relationship Specialty [place] [address] [place] [address] PCP - General FAMILY PRACTICE 07/29/25 Aryan Le MD Three [facility]. [place] [address] [place] [address] [place] Crematory Operator CARDIOVASCULAR DISEASE 04/06/18 Tyler Nunes MD Three [facility] [place] [address] [place] [address] Consulting Physician INTERVENTIONAL CARDIOLOGY 06/09/25 Catarino Bella MD 3 [facility] [place] [address] [place] [address] Consulting Physician INTERVENTIONAL CARDIOLOGY 06/09/25 Richard Post MD 3 [facility] [address] [place] [address] Physician CARDIOTHORACIC SURGERY 06/09/25 Alli Melendrez MD Three [facility] [place] [address] [place] [address] Consulting Physician CARDIOTHORACIC SURGERY 06/09/25 Tanesha Ingram PA [address] [facility], [address] [place] [address] Mold Cutting Machine Operator PHYSICIAN SIDEWALK INSPECTOR 06/09/25 06/12/25 Tanesha Ingram PA [address] [facility], [address] [place] [address] Physician Generator Man PHYSICIAN SIDEWALK INSPECTOR 06/12/25 Bessie Estrada, RN [address] [place] [address] Marbleizing Machine Tender (Ambulatory) REGISTERED NURSE 07/06/25 08/23/25 Alli Cardenas DO [address] [place] [address] INTERNAL MEDICINE 07/29/25 documented as of this encounter
--- OUTSIDE RECORDS SUMMARY | 2025-08-28 12:37 | XMS_ITS | Encounter Summary ---
Author Organization [facility] Address [address] [place] [address] Care Team Providers Care Factory Maintenance Technician Name Role Phone Aryan Le MD Unavailable Tyler Nunes MD Unavailable [phone] Catarino Bella MD Unavailable [phone] Richard Post MD Unavailable [phone] Alli Melendrez MD Unavailable [phone] Tanesha Ingram PA Unavailable [phone] Bessie Estrada RN Unavailable [phone] Amadou Vasques MD Primary Care Provider [phone] Alli Cardenas DO Unavailable Encounter Details Date Type Department Care Team (Late st Contact Info) Description 07/19/2025 Prep for Procedure [facility] THREE [facility], [facility] [address] [place], [place] [id number] Otilio Garner MD Three [facility]. [facility] [address] [place] [address] Social History Tobacco Use Types Packs/Day Years Used Date Smoking Tobacco: Former Cigarettes 2 35 1 970 - 2005 Smokeless Tobacco: Never Alcohol Use Standard Drinks/Week Comments Yes 0 (1 standard drink = 0.6 oz pur e alcohol) [facility] Utilities Answer Date Recorded In the past 12 months has th e electric, Here[employer]There, oil, or water [employer] threatened to shut off services in your [...] were you homeless or living in a senior care (including now)? No 07/05/2025 Sex and Gender Information Value Date Recorded [...] Answer Date of Assessment Author Status No 07/05/2025 3:39 PM CDT Maria Victoria Venegas RN Active * Are you blind or do you have serious difficulty seeing, even when wearing glasses? Answer Date of Assessment Author Status No 07/05/2025 3:39 PM CDT Maria Victoria Venegas RN Active * Do you have serious difficulty walking or climbing stairs? Answer Date of Assessment Author Status Yes 07/05/2025 3:39 PM Maria Victoria Santiago RN Active * Do you have difficulty dressing or bathing? Answer Date of Assessment Author Status Yes 07/05/2025 3:39 PM Maria Victoria Santiago RN Active * Because of a physical, mental, or emotional condition, do you have difficulty doing errands alone such as visiting a doctor's office or shopping? Answer Date of Assessment Author Status Yes 07/05/2025 3:39 PM Maria Victoria Santiago RN Active documented as of this encounter Mental Status * Because of a physical, mental, or emotional condition, do you have serious difficulty concentrating, remembering, or making decisions? Answer Entry Date Author Status Yes 07/05/2025 3:39 PM Maria Victoria Santiago RN Active documented in this encounter Plan of Treatment Upcoming Encounters Date Type Department Care Team (Late st Contact Info) Description 09/05/2025 8:00 AM SUPERVISOR INSPECTION ROOM Office Visit [facility] Medical Group Family & Internal Medicine [facility] [address] [place] [phone] [place] [address] [place] [address] 09/15/2025 1:30 PM SUPERVISOR INSPECTION ROOM Appointment [facility] ONE [facility] [place] [address] Tanesha Ingram PA [address] [place] [address] 09/15/2025 2:30 PM SUPERVISOR INSPECTION ROOM Office Visit [facility] [facility] [place] [address] [place] [address] Tanesha Ingram PA 3 [facility], [address] [place] [address] 09/16/2025 1:00 PM SUPERVISOR INSPECTION ROOM Appointment [facility] Spice Mixer ONE [facility] [place] [address] Aryan Le MD [address] [place] [address] [place] [address] 09/16/2025 1:30 PM SUPERVISOR INSPECTION ROOM Appointment [place] [address] Aryan Le MD [address] [place] [address] [place] [address] 10/17/2025 1:00 PM SUPERVISOR INSPECTION ROOM Office Visit [facility] Group Multispecialty Care - [facility] 3 [facility], [place] [address] [place] [address] Sarah Camacho MD 3 [facility], [facility] [address] [place] [address] 11/16/2025 12:20 PM SUPERVISOR INSPECTION ROOM Office Visit [facility] Medical Group Nephrology Specialty Clinic [address] [phone] Sarah Camacho MD 3 [facility], [facility] [address] [place] [address] 02/14/2026 9:00 AM CDT Appointment [facility] [place] [address] Jesus Aragon MD Three [facility]. [facility] [address] [place] [address] 02/24/2026 9:30 AM CDT Office Visit [facility] [place] THREE [facility], [facility] [address] [place] [address] Jesus Aragon MD Three [facility]. [facility] [address] [place] [address] documented as of this encounter Visit Diagnoses Diagnosis JOB (acute kidney injury)- Primary Acute kidney failure, unspecified documented in this encounter Additional Health Concerns Assessment Noted Time PHQ-9 Depression Total Score: 0 03/15/20 21 12:40 PM CDT documented as of this encounter Care Teams Factory Maintenance Technician Relationship Specialty Start [place] [address] [place] [address] PCP - General FAMILY PRACTICE 07/29/25 Aryan Le MD [address] [place] [address] [place] [address] [place] Gamma Facilities Operator CARDIOVASCULAR DISEASE 04/06/18 Tyler Nunes MD [address] [place] [address] [place] [address] Consulting Physician INTERVENTIONAL CARDIOLOGY 06/09/25 Catarino Bella MD 3 [place] [address] [place] [address] Consulting Physician INTERVENTIONAL CARDIOLOGY 06/09/25 Richard Post MD [address] [facility] [address] [place] [address] Physician CARDIOTHORACIC SURGERY 06/09/25 Alli Melendrez MD [address] [place] [address] [place], [place] [address] Consulting Physician CARDIOTHORACIC SURGERY 06/09/25 Tanesha Ingram, AVINASH 3 [facility], [address] [place], [place] [address] Physician Child Development Consultant PHYSICIAN DIAL REFINISHER 06/12/25 Bessie Estrada, RN [address] [place] [address] Drivers License Examiner (Ambulatory) REGISTERED NURSE 07/06/25 08/23/25 Alli Cardenas DO [facility] [address] [place] [address] INTERNAL MEDICINE 07/29/25 documented as of this encounter
--- OUTSIDE RECORDS SUMMARY | 2025-08-28 12:37 | XMS_ITS | Encounter Summary ---
Author Organization [facility] Address [address] [place] [address] Care Team Providers Care Central Services Tech Name Role Phone Aryan Le MD Unavailable Tyler Nunes MD Unavailable [phone] Catarino Bella MD Unavailable [phone] Richard Post MD Unavailable [phone] Alli Melendrez MD Unavailable [phone] Tanesha Ingram Unavailable [phone] Bessie Estrada RN Unavailable [phone] Amadou Vasques MD Primary Care Provider [phone] Alli Cardenas DO Unavailable Encounter Details Date Type Department Care Team (Late st Contact Info) Description 07/01/2025 Results Follow-Up [facility] Medical Group Family & Internal Medicine [address] [address] Amadou Vasques MD [address] [place] [address] MRI ABD WWO CON Social History Tobacco Use Types Packs/Day Years Used Date Smoking Tobacco: Former Cigarettes 2 35 1 970 - 2005 Smokeless Tobacco: Never Alcohol Use Standard Drinks/Week Comments Yes 0 (1 standard drink = 0.6 oz pur e alcohol) [facility] Utilities Answer Date Recorded In the past 12 months has th e electric, gas, oil, or water [employer] threatened to shut off services in your [...] any time in the past 12 m [facility], were you homeless or living in a retirement (including now)? No 07/05/2025 Sex and Gender Information Value Date Recorded Sex Assigned at Male 05/13/2025 11:00 AM CDT Legal Sex Male 11:09 PM CDT Gender Identity Male 05/13/2025 11:00 AM CDT Sexual Orientation Not on file Occupation Industry Job Start Date Job End Date Not on file Not on file Not on file Not on file documented as of this encounter Progress Notes * Debbie Albarran RN - 07/06/2025 3:21 PM CDT Pt currently admitted to [facility]. * Debbie Albarran RN - 07/05/2025 11:51 AM CDT Hemangioma is a non cancerous growth of extra blood vessels that can occur on the skin or in internal organs. Nothing to be concerned about. Simple cyst on kidney is also nothing to be concerned about per Dr Vasques. Gallstones were noted on MRI. does recommend to see general surgery about thisfor discussion of removal of gallbladder as he did state this will worsen over time. Nothing urgent, just probably needs to come out. LVM for pt to call office. * Amadou Vasques MD - 07/01/2025 8:33 PM CDT Liver lesions appears to be a hemangioma has simple cyst in kidney and has gall stones documented in this encounter Plan of Treatment Upcoming Encounters Date Type Department Care Team (Late st Contact Info) Description 09/05/2025 8:00 AM METALLOGRAPHY TEACHER Office Visit [facility] Medical Group Family & Internal Medicine [facility] [address] [place] [phone] [place] [address] [place] [address] 09/15/2025 1:30 PM METALLOGRAPHY TEACHER Appointment [facility] ONE [facility] [place] [address] Tanesha Ingram PA 3 [facility], [address] [place] [address] 09/15/2025 2:30 PM METALLOGRAPHY TEACHER Office Visit [facility] [facility] [place] [address] [place] [address] Tanesha Ingram PA 3 [place], [address] [place] [address] 09/16/2025 1:00 PM METALLOGRAPHY TEACHER Appointment [place] Track Laying Equipment Operator ONE [facility] [place] [address] Aryan Le MD Three [facility] [place] [address] [place] [address] 09/16/2025 1:30 PM METALLOGRAPHY TEACHER Appointment [place] [employer] [place] [address] Aryan Le MD [address] [place] [address] [place] [address] 10/17/2025 1:00 PM METALLOGRAPHY TEACHER Office Visit [facility] Medical Group Multispecialty Care - [place] 3 [place] [facility], [place] [address] [place] [address] Sarah Camacho MD 3 [facility] [address] [place] [address] 11/16/2025 12:20 PM METALLOGRAPHY TEACHER Office Visit [facility] Medical Group Nephrology Specialty Clinic [address] [phone] Sarah Camacho MD 3 [facility], [facility] [address] [place] [address] 02/14/2026 9:00 AM CDT Appointment [facility] [place] [address] Jesus Aragon MD Three [facility]. [facility] [address] [place] [address] 02/24/2026 9:30 AM CDT Office Visit [facility] THREE [facility], [facility] [address] [place] [address] Jesus Aragon MD Three [facility]. [facility] [address] [place] [address] documented as of this encounter Visit Diagnoses Not on filedocumented in this encounter Additional Health Concerns Infection Onset Date Last Indicated Resolved Time Respiratory Rule Out 07/05/2025 07/05/2025 025 12:45 PM CDT COVID-19 Rule Out 07/05/2025 07/05/2025 07/05/2025 12:45 PM CDT Assessment Noted Time PHQ-9 Depression Total Score: 0 03/15/20 21 12:40 PM CDT documented as of this encounter Care Teams Central Services Tech Relationship Specialty [place] [address] [place] [address] PCP - General FAMILY PRACTICE 07/29/25 Aryan Le MD [address] [place] [address] [place] [address] [place] Kiln Repairer CARDIOVASCULAR DISEASE 04/06/18 Tyler Nunes MD [address] [place] [address] [place], [place] [address] Consulting Physician INTERVENTIONAL CARDIOLOGY 06/09/25 Catarino Bella MD 3 [facility] [place] [address] [place], [place] [address] Consulting Physician INTERVENTIONAL CARDIOLOGY 06/09/25 Richard Post MD 3 [facility] [address] [place], [place] [address] Physician CARDIOTHORACIC SURGERY 06/09/25 Alli Melendrez MD [address] [place] [address] [place], [place] [address] Consulting Physician CARDIOTHORACIC SURGERY 06/09/25 Tanesha Ingram PA 3 [facility], [address] [place], [place] [address] Physician Associate Chief Nurse PHYSICIAN PUBLIC HEALTH AIDE 06/12/25 Bessie Estrada RN [address] [place] [address] Station Engineer Main Line (Ambulatory) REGISTERED NURSE 07/06/25 08/23/25 Alli Cardenas DO [address] [place] [address] INTERNAL MEDICINE 07/29/25 documented as of this encounter
--- NOTE | 2025-08-28 12:42 | PC.NURSE ---
Pt has bed at [facility] in [facility], bed number [address] Forbes. Report called to Rosemarie Olivier at [phone], [phone].
== END 2025-08-28 13:07 | disposition short-term general hospital (02) ==
PROVIDERS: Emergency Provider Emergency Medicine
DX: I49.5 Sick sinus syndrome (principal); R00.1 Bradycardia, unspecified; J18.9 Pneumonia, unspecified organism; S02.2XXA Fracture of nasal bones, initial encounter for closed fracture; I48.91 Unspecified atrial fibrillation; I48.92 Unspecified atrial flutter; Z95.2 Presence of prosthetic heart valve; Z79.01 Long term (current) use of anticoagulants; Z79.899 Other long term (current) drug therapy; I45.10 Unspecified right bundle-branch block; W18.39XA Other fall on same level, initial encounter
CPT/HCPCS: 36415; 70450; 70486; 71045; 72125; 80053; 83605; 83880; 85025; 85610; 85730; 93005; 99285; J0461